=== PATIENT | female | born 1960 | race Caucasian/White ===

== ENCOUNTER 2022-06-18 18:00 | Inpatient (IN) | payer SELFPAY ==
[~2022-06-18] VITALS: Ht 162.6 cm; Wt 71.3 kg
--- NOTE | 2022-06-18 18:20 | Diagnostic Imaging Report ---
PROCEDURE: CT head w/o r/o stroke. TECHNIQUE: Multiple contiguous axial images were obtained through the brain without the use of intravenous contrast. Auto Exposure Controls were utilized during the CT exam to meet ALARA standards for radiation dose reduction. INDICATION: 61-year-old female presents with left-sided weakness and hypertension for 2 weeks. Patient presents with unsteady gait. COMPARISONS: None. FINDINGS: The midline structures are not displaced. Lateral, 3rd and 4th ventricles are normal in size, shape and anatomic position. There is an area of low-attenuation in the deep peter matter of left frontal lobe. There is also an old area of encephalomalacia in the right parietal occipital region. Peter-white differentiation is maintained. There is no sulcal effacement. There is no abnormal extra-axial fluid collection or hemorrhage. Basilar cisterns appear normal. There is calcific atherosclerosis within the carotid siphons. There is acute right maxillary sinus disease. Orbits and mastoid cells are unremarkable. IMPRESSION: There is an area of low-attenuation which is slightly indistinct in the left basal ganglia, possibly representing a subacute infarct. 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 MRI brain would be of further value to better assess these findings. There is no evidence of hemorrhage. There is no midline shift, mass effect or hydrocephalus. Additional nonemergent findings as described. Dictated by: Dictated on workstation # [id number]
[2022-06-18 19:06] LABS: BASOPHILS % (AUTO) 1 % (0-10); EOSINOPHILS # (AUTO) 0.1 10^3/uL (0.0-0.3); EOSINOPHILS % (AUTO) 2 % (0-10); HEMATOCRIT 46 % (35-52); HEMOGLOBIN 15.8 g/dL (11.5-16.0); LYMPHOCYTES % (AUTO) 15 % (12-44); MEAN CORPUSCULAR HEMOGLOBIN 31 pg (25-34); MEAN CORPUSCULAR HGB CONC 34 g/dL (32-36); MEAN CORPUSCULAR VOLUME 90 fL (80-99); MEAN PLATELET VOLUME 9.7 fL (9.0-12.2); MONOCYTES # (AUTO) 0.4 10^3/uL (0.0-1.0); MONOCYTES % (AUTO) 7 % (0-12); NEUTROPHILS # (AUTO) 4.8 10^3/uL (1.8-7.8); NEUTROPHILS % (AUTO) 76 % (42-75); PLATELET COUNT 180 10^3/uL (130-400); WHITE BLOOD COUNT 6.3 10^3/uL (4.3-11.0)
[2022-06-18 19:07] LABS: BILIRUBIN,URINE NEGATIVE (NEGATIVE); CLARITY,URINE CLEAR; COLOR,URINE YELLOW; GLUCOSE, URINE (UA) NEGATIVE (NEGATIVE); KETONES,URINE NEGATIVE (NEGATIVE); LEUKOCYTE ESTERASE ,URINE NEGATIVE (NEGATIVE); NITRITE,URINE NEGATIVE (NEGATIVE); PROTEIN,URINE 2+ (NEGATIVE)
[2022-06-18 19:17] LABS: AMPHETAMINE SCREEN, URINE POSITIVE (NEGATIVE); BENZODIAZEPINES SCREEN URINE NEGATIVE (NEGATIVE); COCAINE SCREEN URINE NEGATIVE (NEGATIVE)
--- NOTE | 2022-06-18 19:17 | Diagnostic Imaging Report ---
INDICATION: Stroke, shortness of breath. COMPARISONS: None. FINDINGS: Single view of the chest shows normal heart, pulmonary vasculature, pleura and diaphragms with no focal opacity. Soft tissues and bony thorax are unremarkable. IMPRESSION: No acute cardiopulmonary changes. Dictated by: Dictated on workstation # [id number]
[2022-06-18 19:18] LABS: BACTERIA,URINE TRACE /HPF; BARBITURATE SCREEN URINE NEGATIVE (NEGATIVE); CANNABINOID SCREEN, URINE NEGATIVE (NEGATIVE); HYALINE CASTS, URINE 0-2 /LPF; METHADONE STAT NEGATIVE (NEGATIVE); OPIATE SCREEN URINE NEGATIVE (NEGATIVE); OXYCODONE STAT NEGATIVE (NEGATIVE); PROPOXYPHENE STAT NEGATIVE (NEGATIVE); SQUAMOUS EPITHELIAL CELL,UR 0-2 /HPF; TRICYCLIC ANTIDEPRESSANTS SCRE NEGATIVE (NEGATIVE); WBC,URINE 0-2 /HPF
[2022-06-18 19:19] LABS: ALBUMIN 4.1 GM/DL (3.2-4.5)
[2022-06-18 19:20] LABS: CHLORIDE 105 MMOL/L (98-107); POTASSIUM 3.6 MMOL/L (3.6-5.0); SODIUM 140 MMOL/L (135-145)
[2022-06-18 19:21] LABS: CALCIUM 9.4 MG/DL (8.5-10.1)
[2022-06-18 19:22] LABS: FIBRIN DEGRADATION PRODUCTS 0.86 UG/ML (0.00-0.49); GLUCOSE 129 MG/DL (70-105); TOTAL PROTEIN 7.7 GM/DL (6.4-8.2)
[2022-06-18 19:23] LABS: CARBON DIOXIDE 23 MMOL/L (21-32)
[2022-06-18 19:24] LABS: BILIRUBIN,TOTAL 0.6 MG/DL (0.1-1.0)
[2022-06-18 19:25] LABS: ALKALINE PHOSPHATASE 84 U/L (40-136)
[2022-06-18 19:26] LABS: CREATININE SERUM 0.89 MG/DL (0.60-1.30); GFR ESTIMATED 74
[2022-06-18 19:27] LABS: BUN/CREATININE RATIO 15
[2022-06-18 19:29] LABS: ALANINE AMINOTRANSFERASE 19 U/L (0-55)
--- NOTE | 2022-06-18 19:44 | ED Neurological Problem ---
General Chief Complaint: Neuro-Stroke Like Symptoms Stated Complaint: STROKE LIKE SYMPTOMS Nursing Triage Note: PT BROUGHT IN BY [facility] FROM HOME WITH COMPLAINT OF STROKE LIKE SYMTPOMS. PT WAS FOUND BY FAMILY TODAY TO HAVE SLURRED SPEECH AND LEFT SIDE WEAKNESS. 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 EMS STATES PT HAS BEEN FEELING OFF FOR TWO WEEKS. PT STRAIGHT TO CT ON ARRIVAL. Source: patient Exam Limitations: no limitations History of Present Illness Date Seen by Provider: Jun 18, 2022 Time Seen by Provider: 18:00 Initial Comments This 61-year-old woman presents to the emergency room via EMS with complaints of speech difficulty, disorientation, and left-sided weakness. She is markedly hypertensive. EMS reports blood pressures have been greater than 210 systolic and greater than 110 diastolic. Her daughter is the primary historian. Her name is Unique Clark and her phone number is [phone]. She is next of kin. Unique reports Wilfrido has not been herself for about 2 weeks. Her symptoms have worsened with disorientation and speech problems over the last 24 to 48 hours. Last known well time in regard to speech and disorientation would be at least 24 hours ago. EMS reported there was a "used crack pipe" at the home. Family reports they recently learned that Wilfrido has had a long-term problem with methamphetamine use. Patient is disoriented on arrival and unable to give her accurate age, month, or year. She does follow instructions. She does not recall how she got to the hospital. Initial NIH scores 8 with deficits including minor left facial weakness, minor expressive aphasia, left arm and leg weakness and numbness, and ataxia of the left upper extremity. She remains quite hypertensive on arrival. Family reports she has also had a recent mild cough, complaints of increased body aches, and a degrading gait. EMS reported that patient walked to the ambulance with their assistance. According to family patient is a longtime smoker, uses methamphetamine, and is a remote user of alcohol and marijuana many years ago. Fingerstick blood sugar was 112 for EMS and 114 on arrival. Her primary care has previously been provided by [facility]. Patient has been alert but disoriented. She does not complain of any pain at present. Allergies and Home Medications Allergies Coded Allergies: No Known Drug Allergies (Unverified , 06/18/22) Patient Home Medication List Home Medication List Reviewed: Yes Review of Systems Review of Systems Constitutional: no symptoms reported Eyes: No Symptoms Reported Ears, Nose, Mouth, Throat: no symptoms reported Respiratory: see HPI Cardiovascular: see HPI Gastrointestinal: no symptoms reported Genitourinary: no symptoms reported : No Musculoskeletal: see HPI Skin: no symptoms reported Psychiatric/Neurological: See HPI Endocrine: No Symptoms Reported Hematologic/Lymphatic: No Symptoms Reported Past Ytwdruv-Ezaaov-Tdjwoo Hx Patient Social History Tobacco Use?: Yes Tobacco type used: Cigarettes Use of E-Cig and/or Vaping dev: No Substance use?: Yes Substance type: Methamphetamine Alcohol Use?: No Pt feels they are or have been: No Past Medical History Surgeries: No (None reported) Respiratory: Yes (Tobaccoism) Cardiac: Yes Hypertension (Historically untreated) Neurological: Yes Stroke (Old CVA as evidenced by CT) : No Genitourinary: No Gastrointestinal: No Musculoskeletal: No Endocrine: No HEENT: No Cancer: No Psychosocial: Yes (Chronic methamphetamine abuse) Integumentary: No Family Medical History Cancer (Lung), Diabetes, Psychiatric Problems (Dementia), Other Conditions/Hx (Thyroid disease) Physical Exam Vital Signs Vital Signs - First Documented 06/18/22 18:02 Temp 36.3 Pulse 98 Resp 23 B/P (MAP) 213/114 (147) Pulse Ox 91 O2 Delivery Room Air Capillary Refill : Height, Weight, BMI Height: '" Weight: lbs. oz. kg; 30.00 BMI Method: General Appearance: WD/WN, no apparent distress HEENT: normal ENT inspection Neck: normal inspection Respiratory: lungs clear, normal breath sounds, no respiratory distress Cardiovascular: regular rate, rhythm, no edema, no murmur Gastrointestinal: non tender, soft Extremities: normal inspection Neurologic/Psychiatric: alert, normal mood/affect, abnormal cerebellar tests (Abnormal wurnzt-iw-lcmq test on the left), facial droop (Left, mild), motor weakness (Drift of the left upper and lower extremity), sensory deficit (Numbness to pinprick on the left upper and lower extremity), disoriented x 3 Crainal Nerves: normal hearing Coordination/Gait: ABN nose to finger (L) Motor/Sensory: no motor deficit, sensory deficit (Left extremities), weak motor strength LUE, weak motor strength LLE Skin: normal color, warm/dry Stroke NIH Stroke Scale Assessment Level of Consciousness: 0=Alert (0), Level of Consciousness-Questions: 2=Answer neither question (2), LOC Commands: 0=Performs both tasks (0), Visual Gould: 0=No visual loss (0), Facial Movement (Facial Paresis): 1=Minor paralysis (1), Motor Function-Arms Right: 0=No drift (0), Motor Function-Arms Left: 1=Drift (1), Motor Function-Legs Right: 0=No drift (0), Motor Function-Legs Left: 1=Drift (1), Limb Ataxia: 1=Present in one limb (1), Sensory: 1=Mild to Moderate loss (1), Best Language: 1=Mild to moderat aphasia (1), Dysarthria: 0=Normal (0), Extinction & Inattention: 0=No abnormality (0), Total: 8 Stroke Thrombolytic Exclusion Severe Hypertension: Yes IV - TPa Received IV - TPa Procedure Performed?: No Progress/Results/Core Measures Results/Orders Lab Results Laboratory Tests Test 06/18/22 18:34 06/18/22 18:35 06/18/22 18:55 Range/Units Glucometer 114 H 70-110 MG/DL Influenza Type A (RT-PCR) Not Detected Not Detecte Influenza Type B (RT-PCR) Not Detected Not Detecte SARS-CoV-2 RNA (RT-PCR) Not Detected Not Detecte White Blood Count 6.3 4.3-11.0 10^3/uL Red Blood Count 5.09 3.80-5.11 10^6/uL Hemoglobin 15.8 11.5-16.0 g/dL Hematocrit 46 35-52 % Mean Corpuscular Volume 90 80-99 fL Mean Corpuscular Hemoglobin 31 25-34 pg Mean Corpuscular Hemoglobin Concent 34 32-36 g/dL Red Cell Distribution Width 13.6 10.0-14.5 % Platelet Count 180 130-400 10^3/uL Mean Platelet Volume 9.7 9.0-12.2 fL Immature Granulocyte % (Auto) 0 % Neutrophils (%) (Auto) 76 H 42-75 % Lymphocytes (%) (Auto) 15 12-44 % Monocytes (%) (Auto) 7 0-12 % Eosinophils (%) (Auto) 2 0-10 % Basophils (%) (Auto) 1 0-10 % Neutrophils # (Auto) 4.8 1.8-7.8 10^3/uL Lymphocytes # (Auto) 1.0 1.0-4.0 10^3/uL Monocytes # (Auto) 0.4 0.0-1.0 10^3/uL Eosinophils # (Auto) 0.1 0.0-0.3 10^3/uL Basophils # (Auto) 0.0 0.0-0.1 10^3/uL Immature Granulocyte # (Auto) 0.0 0.0-0.1 10^3/uL Prothrombin Time 14.0 12.2-14.7 SEC INR Comment 1.0 0.8-1.4 Activated Partial Thromboplast Time 27 24-35 SEC D-Dimer 0.86 H 0.00-0.49 UG/ML Urine Color YELLOW Urine Clarity CLEAR Urine pH 6.0 5-9 Urine Specific [place] 1.025 H 1.016-1.022 Urine Protein 2+ H NEGATIVE Urine Glucose (UA) NEGATIVE NEGATIVE Urine Ketones NEGATIVE NEGATIVE Urine Nitrite NEGATIVE NEGATIVE Urine Bilirubin NEGATIVE NEGATIVE Urine Urobilinogen 0.2 < = 1.0 MG/DL Urine Leukocyte Esterase NEGATIVE NEGATIVE Urine RBC (Auto) NEGATIVE NEGATIVE Urine RBC NONE /HPF Urine WBC 0-2 /HPF Urine Squamous Epithelial Cells 0-2 /HPF Urine Crystals NONE /LPF Urine Bacteria TRACE /HPF Urine Casts PRESENT /LPF Urine Hyaline Casts 0-2 H /LPF Urine Mucus LARGE H /LPF Urine Culture Indicated NO Sodium Level 140 135-145 MMOL/L Potassium Level 3.6 3.6-5.0 MMOL/L Chloride Level 105 98-107 MMOL/L Carbon Dioxide Level 23 21-32 MMOL/L Anion Gap 12 5-14 MMOL/L Blood Urea Nitrogen 13 7-18 MG/DL Creatinine 0.89 0.60-1.30 MG/DL Estimat Glomerular Filtration Rate 74 BUN/Creatinine Ratio 15 Glucose Level 129 H 70-105 MG/DL Calcium Level 9.4 8.5-10.1 MG/DL Corrected Calcium 9.3 8.5-10.1 MG/DL Total Bilirubin 0.6 0.1-1.0 MG/DL Aspartate Amino Transf (AST/SGOT) 17 5-34 U/L Alanine Aminotransferase (ALT/SGPT) 19 0-55 U/L Alkaline Phosphatase 84 40-136 U/L Troponin I < 0.028 <0.028 NG/ML Total Protein 7.7 6.4-8.2 GM/DL Albumin 4.1 3.2-4.5 GM/DL Thyroid Stimulating Hormone (TSH) 5.49 H 0.35-4.94 UIU/ML Free Thyroxine 0.81 0.70-1.48 NG/DL Urine Opiates Screen NEGATIVE NEGATIVE Urine Oxycodone Screen NEGATIVE NEGATIVE Urine Methadone Screen NEGATIVE NEGATIVE Urine Propoxyphene Screen NEGATIVE NEGATIVE Urine Barbiturates Screen NEGATIVE NEGATIVE Ur Tricyclic Antidepressants Screen NEGATIVE NEGATIVE Urine Phencyclidine Screen NEGATIVE NEGATIVE Urine Amphetamines Screen POSITIVE H NEGATIVE Urine Methamphetamines Screen POSITIVE H NEGATIVE Urine Benzodiazepines Screen NEGATIVE NEGATIVE Urine Cocaine Screen NEGATIVE NEGATIVE Urine Cannabinoids Screen NEGATIVE NEGATIVE Serum Alcohol < 10 <10 MG/DL My Orders Orders - FLACO CHOWDHURY MD Cbc With Automated Diff (06/18/22 18:20) Protime With Inr (06/18/22 18:20) Partial Thromboplastin Time (06/18/22 18:20) Comprehensive Metabolic Panel (06/18/22 18:20) Fibrin Degradation Products (06/18/22 18:20) Troponin I [place] (06/18/22 18:20) Ua Culture If Indicated (06/18/22 18:20) Chest 1 View, Ap/Pa Only (06/18/22 18:20) Ekg Tracing (06/18/22 18:20) Nothing By Mouth (06/18/22 Dinner) Accucheck Stat ONCE (06/18/22 18:20) Ed Iv/Invasive Line Start (06/18/22 18:20) Ed Iv/Invasive Line Start (06/18/22 18:20) Vital Signs Stroke Patient Q15M (06/18/22 18:20) O2 (06/18/22 18:20) Intake & Output 06,14,22 (06/18/22 18:20) Monitor-Rhythm Ecg Trace Only (06/18/22 18:20) Dysphagia Screening Tool Q10MX1 (06/18/22 18:20) Lipid Panel (06/19/22 06:00) Alcohol (06/18/22 18:20) Drug Screen Stat (Urine) (06/18/22 18:20) Covid 19 Inhouse Test (06/18/22 18:) Influenza A And B By Pcr (06/18/22 18:23) Thyroid Stimulating Hormone (06/18/22 18:49) Free T4 (Free Thyroxine) (06/18/22 18:49) Ct Angio Head/Neck (06/18/22 19:31) Iohexol Injection (Omnipaque 350 Mg/Ml 1 (06/18/22 19:45) Received Contrast (Hold Metformin- Contr (06/18/22 19:45) Ns (Ivpb) (Sodium Chloride 0.9% Ivpb Bag (06/18/22 20:00) Ns (Ivpb) (Sodium C... W/Nicardipine Iv (06/18/22 22:00) Aspirin Tablet (Aspirin Tablet) (06/18/22 22:15) Nicardipine Iv (Pyxis Drip Kit (Cardene (06/18/22 22:21) D5w Iv Solution (Garner) (Dextrose 5% Hong (06/18/22 22:21) Normal Saline (Ns (Garner Bag)) (06/18/22 22:23) Medications Given in ED Current Medications Medications Dose Ordered Sig/Kay Route Start Time Stop Time Status Last Admin Dose Admin Aspirin 325 mg ONCE ONCE PO 06/18/22 22:15 06/18/22 22:16 DC 06/18/22 22:19 325 MG Iohexol 100 ml ONCE ONCE IV 06/18/22 19:45 06/18/22 19:46 DC 06/18/22 19:53 90 ML Sodium Chloride 100 ml ONCE ONCE IV 06/18/22 20:00 06/18/22 20:01 DC 06/18/22 19:53 80 ML Vital Signs/I&O 06/18/22 18:02 Temp 36.3 Pulse 98 Resp 23 B/P (MAP) 213/114 (147) Pulse Ox 91 O2 Delivery Room Air Blood Pressure Mean: 147 FSBG Bedside Testing Finger Stick Blood Glucose: 114 Blood Glucose Action Taken: pHYSICIAN NOTIFIED Progress Progress Note #1: Time: 21:34 Progress Note Patient was taken directly to CT scan upon arrival and images were immediately reviewed by me. No hemorrhage or mass was identified. Report was later reviewed and confirmed no definite acute findings. There was evidence of old right-sided CVA. Patient had marked hypertension. This was permitted during the work-up as she was not a tPA candidate and confirmation of stroke was not yet known. Patient cannot receive thrombolytics as her last known well time was greater than 4.5 hours from time of presentation. According to family, last known well time was 24 to 48 hours ago regarding her confusion and speech. She had not been herself for about 2 weeks prior to that. Labs and urinalysis evaluation including CBC, CMP, magnesium, troponin, D-dimer, serum alcohol, urine drug screen, and thyroid studies were all reviewed in their entirety by me. Urine drug screen was positive for methamphetamine. Work-up was otherwise relatively unremarkable. CT of the head was followed by CT angiogram of the head and neck. Report was reviewed. No critical stenosis or large vessel occlusion was identified. Progress Note #2: Time: 21:[address] Dudley, stroke neurologist at [facility], was consulted regarding further therapies and management of the blood pressure. She recommended targeting a 20% drop in blood pressure tonight and further reducing the blood pressure toward normal tomorrow. A Cardene drip is being initiated. She also recommended treating with aspirin 325 mg tonight followed by 81 mg daily. Aspirin will be administered if patient passes the dysphagia screen. Progress Note #3: Time: 22:30 Progress Note Patient passed dysphagia screen and was administered aspirin. Repeat NIH before transfer to the ICU was performed by nursing staff. Repeat NIH score was 3. Cardene drip was initiated in the ER. I discussed CODE STATUS with the patient and her sister. Patient wishes to remain full code at this time. She was a little more alert and was able to give her accurate age. She was still not able to state the month or year. Report will be given to eICU. Admission and plan were discussed with Dr. Littlejohn, hospitalist. He agrees to admission to the ICU. Initial ECG Impression Date: Jun 18, 2022 Initial ECG Impression Time: 18:40 Initial ECG Rate: 98 Initial ECG Rhythm: Normal Sinus Initial ECG Intervals: Normal Initial ECG Impression: Normal Comment Normal sinus rhythm with no ST elevation or depression. No abnormal intervals or axis deviation. Diagnostic Imaging Diagonstic Imaging: CT Plain Films/CT/US/NM/MRI: head Comments CT head was reviewed by me in the radiology department immediately upon obtaining the images. No hemorrhage or mass was appreciated. There was subacute versus old stroke in the right parieto-occipital region by my interpretation. Radiologist report was later reviewed as below: NAME: [facility] REC#: [id number] PT STATUS: REG ER : 1960 PHYSICIAN: MYRNA MERIDA ADMIT DATE: 06/18/22/ER Signed Date of Exam:06/18/22 CT HEAD WO-R/O STROKE PROCEDURE: CT head w/o r/o stroke. TECHNIQUE: Multiple contiguous axial images were obtained through the brain without the use of intravenous contrast. Auto Exposure Controls were utilized during the CT exam to meet ALARA standards for radiation dose reduction. INDICATION: 61-year-old female presents with left-sided weakness and hypertension for 2 weeks. Patient presents with unsteady gait. COMPARISONS: None. FINDINGS: The midline structures are not displaced. Lateral, 3rd and 4th ventricles are normal in size, shape and anatomic position. There is an area of low-attenuation in the deep peter matter of left frontal lobe. There is also an old area of encephalomalacia in the right parietal occipital region. Peter-white differentiation is maintained. There is no sulcal effacement. There is no abnormal extra-axial fluid collection or hemorrhage. Basilar cisterns appear normal. There is calcific atherosclerosis within the carotid siphons. There is acute right maxillary sinus disease. Orbits and mastoid cells are unremarkable. IMPRESSION: There is an area of low-attenuation which is slightly indistinct in the left basal ganglia, possibly representing a subacute infarct. 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 MRI brain would be of further value to better assess these findings. There is no evidence of hemorrhage. There is no midline shift, mass effect or hydrocephalus. Additional nonemergent findings as described. Dictated by: Dictated on workstation # [id number] Dict: 06/18/221813 Trans: 06/18/221825 [facility] [id number] Interpreted by: MARIAM COSTA MD Electronically signed by: MARIAM COSTA MD 06/18/221825 Diagonstic Imaging: Xray Plain Films/CT/US/NM/MRI: chest Comments NAME: WILFRIDO CLARK [facility] REC#: [id number] PT STATUS: REG ER : 1960 PHYSICIAN: FLACO CHOWDHURY MD ADMIT DATE: 06/18/22/ER Signed Date of Exam:06/18/22 CHEST 1 VIEW, AP/PA ONLY INDICATION: Stroke, shortness of breath. COMPARISONS: None. FINDINGS: Single view of the chest shows normal heart, pulmonary vasculature, pleura and diaphragms with no focal opacity. Soft tissues and bony thorax are unremarkable. IMPRESSION: No acute cardiopulmonary changes. Dictated by: Dictated on workstation # [id number] Dict: 06/18/221911 Trans: 06/18/221929 [facility] [id number] Interpreted by: MARIAM COSTA MD Electronically signed by: MARIAM COSTA MD 06/18/221929 Diagonstic Imaging: CT Plain Films/CT/US/NM/MRI: other (Angiogram head and neck) Comments NAME: WILFRIDO CLARK [facility] REC#: [id number] PT STATUS: REG ER : 1960 PHYSICIAN: FLACO CHOWDHURY MD ADMIT DATE: 06/18/22/ER Signed Date of Exam:06/18/22 CT ANGIO HEAD/NECK PROCEDURE: CT angiography of the head and CT angiography of the neck with and without contrast. TECHNIQUE: Contiguous noncontrast images were obtained from the skull base through the vertex. After intravenous contrast administration, helical CT angiography of the neck was performed. Source data was reformatted into 3D MIP projections. Delayed post contrast acquisition was also obtained. Auto Exposure Controls were utilized during the CT exam to meet ALARA standards for radiation dose reduction. INDICATION: 61-year-old female presents with strokelike symptoms with slurred speech, left-sided weakness. COMPARISONS: CT head 06/18/2022. FINDINGS: There is normal arch origin of the great vessels. Both common carotid arteries are widely patent. Carotid bifurcations show some mixed plaque but no evidence of hemodynamically significant stenosis. There is tortuosity of the cervical segments. The high cervical, petrous, cavernous and supraclinoid segment are patent. There is bilateral carotid siphon disease but no evidence of hemodynamically significant stenosis. A1 and A2 segments of both ARAM, M1, M2 and M3 trifurcation vessels of both MCA are unremarkable. The right vertebral artery is dominant. Both vertebral arteries are patent to the skull base. The PICA termination of the left vertebral artery is noted which is a normal variation. The basilar artery, AICA, ACAs and MCAs are patent. There is severe atherosclerosis of the P1 segment of left [employer]. There is origin of the left [employer]. There is diffuse intracranial atherosclerosis with small vessel disease but no large vessel or medium vessel occlusion present. Lung apices show some posterior atelectasis but no confluent consolidation. Superior mediastinum is unremarkable. Parapharyngeal and paraspinous soft tissues are also grossly unremarkable. There is some cervical spondylosis with multilevel hypertrophic facet changes. IMPRESSION: 1. There is some minimal bilateral carotid bifurcation disease but no evidence of a hemodynamically significant stenosis. 2. There is minimal bilateral carotid siphon disease but no evidence of hemodynamically significant stenosis. 3. Dominant right vertebral artery. There is PICA termination of the left vertebral artery, a normal variation. 4. There is origin of the left [employer], a normal variation. 5. There is no large vessel or medium vessel occlusion seen in the intracranial circulation, but there is small vessel disease present. Additional nonemergent findings as described above. Dictated by: Dictated on workstation # [id number] Dict: 06/18/222007 Trans: 06/18/222109 [facility] [id number] Interpreted by: MARIAM COSTA MD Electronically signed by: MARIAM COSTA MD 06/18/222109 CT Read Date: Jun 18, 2022 CT Read Time: 18:00 CT Results/Progress Notes CT reviewed immediately upon obtaining images by me, Dr. Chowdhury, at 1800. No hemorrhage or mass was appreciated. There was subacute versus old stroke in the right parietal occipital region. Critical Care Note Critical Care Start Time: 18:00 Stop Time: 21:50 Total Time (minutes) 45 Progress 45 minutes of critical care time were dedicated to this patient which included bedside evaluation and care, review of imaging studies and reports, discussion with stroke neurologist and attending physician, review of labs, discussion with patient and family, collection of history, etc. Departure Communication (Admissions) Time/Spoke to Admitting Phy: 21:50 Dr. Littlejohn, hospitalist Impression Primary Impression: Malignant hypertension Additional Impressions: CVA (cerebral vascular accident) Qualified Codes: I63.9 - Cerebral infarction, unspecified Left-sided weakness Disoriented Methamphetamine abuse Disposition: ADMITTED INPATIENT Condition: Stable Admissions Decision to Admit Reason: Admit from ER (General) Decision to Admit/Date: Jun 18, 2022 Time/Decision to Admit Time: 21:50 Departure-Patient Inst. Referrals: [facility] (PCP/Family) Primary Care Physician Copy Copies To 1: [facility]/FLACO GOMEZ MD Jun 18, 2022 19:44
[2022-06-18] MEDS ORDERED: HOLD METFORMIN - RECEIVED CONTRAST 20 ML VIAL IV SCH (19:45)
[2022-06-18] MEDS ORDERED: IOHEXOL 350 MG/ML 100 ML (OMNIPAQUE 350) VIAL IV ONE (19:45)
[2022-06-18 19:49] LABS: FREE T4 (FREE THYROXINE) 0.81 NG/DL (0.70-1.48)
[2022-06-18] MEDS ORDERED: NS 100 ML (IVPB) BAG IV ONE (20:00)
--- NOTE | 2022-06-18 21:03 | Diagnostic Imaging Report ---
PROCEDURE: CT angiography of the head and CT angiography of the neck with and without contrast. TECHNIQUE: Contiguous noncontrast images were obtained from the skull base through the vertex. After intravenous contrast administration, helical CT angiography of the neck was performed. Source data was reformatted into 3D MIP projections. Delayed post contrast acquisition was also obtained. Auto Exposure Controls were utilized during the CT exam to meet ALARA standards for radiation dose reduction. INDICATION: 61-year-old female presents with strokelike symptoms with slurred speech, left-sided weakness. COMPARISONS: CT head 06/18/2022. FINDINGS: There is normal arch origin of the great vessels. Both common carotid arteries are widely patent. Carotid bifurcations show some mixed plaque but no evidence of hemodynamically significant stenosis. There is tortuosity of the cervical segments. The high cervical, petrous, cavernous and supraclinoid segment are patent. There is bilateral carotid siphon disease but no evidence of hemodynamically significant stenosis. A1 and A2 segments of both ARAM, M1, M2 and M3 trifurcation vessels of both MCA are unremarkable. The right vertebral artery is dominant. Both vertebral arteries are patent to the skull base. The PICA termination of the left vertebral artery is noted which is a normal variation. The basilar artery, AICA, ACAs and MCAs are patent. There is severe atherosclerosis of the P1 segment of left BOOKING MANAGER. There is origin of the left BOOKING MANAGER. There is diffuse intracranial atherosclerosis with small vessel disease but no large vessel or medium vessel occlusion present. Lung apices show some posterior atelectasis but no confluent consolidation. Superior mediastinum is unremarkable. Parapharyngeal and paraspinous soft tissues are also grossly unremarkable. There is some cervical spondylosis with multilevel hypertrophic facet changes. IMPRESSION: 1. There is some minimal bilateral carotid bifurcation disease but no evidence of a hemodynamically significant stenosis. 2. There is minimal bilateral carotid siphon disease but no evidence of hemodynamically significant stenosis. 3. Dominant right vertebral artery. There is PICA termination of the left vertebral artery, a normal variation. 4. There is origin of the left BOOKING MANAGER, a normal variation. 5. There is no large vessel or medium vessel occlusion seen in the intracranial circulation, but there is small vessel disease present. Additional nonemergent findings as described above. Dictated by: Dictated on workstation # [id number]
[2022-06-18] MEDS ORDERED: niCARdipine IV 50 MG in NS (IVPB) 230 ML IV SCH (22:00)
[2022-06-18] MEDS ORDERED: ASPIRIN 325 MG (5 GR) TABLET PO ONE (22:15)
[2022-06-18] MEDS ORDERED: niCARdipine IV PYXIS DRIP KIT = 50 MG X 2 VIALS ONE (22:21)
[2022-06-18] MEDS ORDERED: D5W IV SOLUTION (EXCEL) 0 ML IV ONE (22:21)
[2022-06-18] MEDS ORDERED: NORMAL SALINE 250 ML ONE (22:23)
[2022-06-18] MEDS ORDERED: ONDANSETRON 4 MG/2 ML (SDV) Z0FRAN IV PRN (23:30)
[2022-06-19 04:32] LABS: BASOPHILS % (AUTO) 1 % (0-10); EOSINOPHILS # (AUTO) 0.2 10^3/uL (0.0-0.3); EOSINOPHILS % (AUTO) 3 % (0-10); HEMATOCRIT 47 % (35-52); LYMPHOCYTES # (AUTO) 2.1 10^3/uL (1.0-4.0); LYMPHOCYTES % (AUTO) 37 % (12-44); MEAN CORPUSCULAR HEMOGLOBIN 31 pg (25-34); MEAN CORPUSCULAR HGB CONC 34 g/dL (32-36); MEAN CORPUSCULAR VOLUME 90 fL (80-99); MEAN PLATELET VOLUME 10.1 fL (9.0-12.2); MONOCYTES # (AUTO) 0.6 10^3/uL (0.0-1.0); MONOCYTES % (AUTO) 10 % (0-12); NEUTROPHILS # (AUTO) 2.9 10^3/uL (1.8-7.8); NEUTROPHILS % (AUTO) 50 % (42-75); PLATELET COUNT 185 10^3/uL (130-400); WHITE BLOOD COUNT 5.8 10^3/uL (4.3-11.0)
[2022-06-19 04:57] LABS: ALBUMIN 3.8 GM/DL (3.2-4.5); BILIRUBIN,TOTAL 0.7 MG/DL (0.1-1.0); CALCIUM 9.4 MG/DL (8.5-10.1); CREATININE SERUM 0.75 MG/DL (0.60-1.30); MAGNESIUM 1.9 MG/DL (1.6-2.4); PHOSPHORUS 2.9 MG/DL (2.3-4.7); POTASSIUM 3.1 MMOL/L (3.6-5.0); TOTAL PROTEIN 7.2 GM/DL (6.4-8.2)
[2022-06-19] MEDS ORDERED: NS IV 500 ML 500 ML IV PRN (06:00)
[2022-06-19] MEDS: MAGNESIUM 1 GM/100 ML IVPB 100 ML IV SCH ×2 (06:51→09:04)
[2022-06-19] MEDS: POTASSIUM CL 10MEQ/50ML IVPB 50 ML IV SCH ×8 (09:03→22:12)
[2022-06-19] MEDS: niCARdipine IV 50 MG in NS (IVPB) 230 ML IV SCH ×3 (09:06→19:30)
[2022-06-19] MEDS: ASPIRIN 81 MG CHEW (CHILDREN'S ASA) PO SCH (09:26)
--- NOTE | 2022-06-19 10:52 | Tele-ICU Consult ---
History of Present Illness History of Present Illness Date Seen by Provider: Jun 19, 2022 Time Seen by Provider: 10:51 History of Present Illness (Tele-ICU Physician , consultation as per request of PCP Service provided via interactive audio and video telecommunications E-CARE system to a patient admitted to ICU bed in [facility]. Available chart/ vitals / labs / Images reviewed H&P is from ER notes Patient's information available about PMH, Shx, Fhx allergy reviewed inEMR. ROS as per chart and RN report Now in ICU, hemodynamically stable Video assessment done using teleICU camera, rest of exam as per RN Discussed with RN. Hospital course: (06/18) 61/F- CVA - Slurred speech, L.S. weakness, ams, CTH - NEG. HTN URGENCY 217/104. Has not been feeling well for 2 weeks and LKW 24-48 hrs. A/P Acute CVA 06/18/2022 - stroke neurologist at [facility] consulted from ER , not candidate for thromolytics- out of window -now NIH =4 , Initial NIH 8 - minor left facial weakness, minor expressive aphasia,lue AND lle weakness and numbness, and ataxia of the LUE - CT-H - suspected subacute infarct basal ganslia , OLD right parieto-occipital infarct - CTA-H- no large vessel or medium vessel occlusion - ASA given - ECHO -speach eval HTN emergency , presented with MAP 141 - on cardene gtt from ER , MAP down by 20% , will cont to aim toward MAP 100 today and by NL BP by tomorrow Tobacco addiction - started on nikitone patch Lines : perip , (Central Line Necessity Reviewed) Deleon: 06/18 OG: Nutrition: npo Analgesia: Anxiety/ delirium VTE Prophylaxis: scd today Stress Ulcer Prophylaxis: na Glycemic Control: + Plans in collaboration with bedside consultants and IM MDs. Discussed with RN to reach out if any questions or concerns A total of 32 minutes of critical care time was devoted to this patient today, required to treat and/or prevent further deterioration of critical care condition ( as above ) . I am remotely monitoring this patient from another state. I am unable to do the bedside exam, and history/physical and pertinent information is taken from other notes in the computer and bedside staff. . Allergies and Home Medications Allergies Coded Allergies: No Known Drug Allergies (Unverified , 06/18/22) Past Medical/Social/Family Hx Patient Social History Tobacco Use?: Yes Tobacco type used: Cigarettes Smoking Status: Current Everyday Smoker Smokeless Tobacco Frequency: Never a User Use of E-Cig and/or Vaping dev: No Substance use?: Yes Substance type: Methamphetamine Substance frequency: Couple times a week Alcohol Use?: No Pt stated abuse/neglect: No Immunizations Up To Date Influenza Vaccine Up-to-Date: No; Not Current Tetanus Booster (TDap): More Than 5 Years Hepatitis B: Yes TB Skin Test: None Current Status status: No status: No Advance Directives: No Communicates: Verbally Primary Language: Belizean Preferred Spoken Language: Belizean Is interpretation needed?: No Implanted or Applied Medical D: None Review of Systems Constitutional: see HPI Focused Exam Height, Weight, BMI Height: '" Weight: lbs. oz. kg; 26.74 BMI Method: Exam Exam Patient acknowledged, consented, and participated in this virtual visit which was conducted using real time audio/video Vital Signs Date Time Temp Pulse Resp B/P (MAP) Pulse Ox O2 Delivery O2 Flow Rate FiO2 06/19/22 10:00 81 14 130/73 (97) 94 Room Air 06/19/22 09:06 149/80 06/19/22 09:00 89 16 146/80 (106) 93 Room Air 06/19/22 08:00 84 11 132/92 (96) 93 Room Air 06/19/22 07:00 82 06/19/22 07:00 81 14 174/105 (128) 95 Room Air 06/19/22 06:00 89 17 169/93 (118) 94 Room Air 06/19/22 05:00 89 15 169/87 (114) 93 Room Air 06/19/22 04:00 96 Room Air 06/19/22 04:00 91 16 164/100 (121) 93 Room Air 06/19/22 03:00 89 15 220/119 (152) 94 Room Air 06/19/22 02:00 92 14 179/110 (133) 93 Room Air 06/19/22 01:00 92 11 183/97 (125) 93 Room Air 06/19/22 01:00 93 06/19/22 00:34 35.3 104 14 168/45 (86) 94 06/19/22 00:00 101 19 185/99 (127) 94 Room Air 06/18/22 23:39 169/93 06/18/22 23:10 98 Room Air 06/18/22 23:09 213/114 06/18/22 23:00 94 20 203/111 (141) 96 Room Air 06/18/22 18:02 36.3 98 23 213/114 (147) 91 Room Air I & O 06/19/22 07:00 Intake Total 0 ml Output Total 1500 ml Balance -1500 ml Height & Weight Height: '" Weight: lbs. oz. kg; 26.74 BMI Method: General Appearance: Other Gastrointestinal: non tender, soft Results Lab Laboratory Tests 06/18/22 18:55 06/19/22 03:35 Assessment/Plan Assessment/Plan 1 IVÁN DIETRICH MD Jun 19, 2022 10:52
[2022-06-19] MEDS: NICOTINE 21 MG (NICODERM) PATCH TD SCH (11:30)
[2022-06-19] MEDS ORDERED: LOSARTAN 25 MG (COZAAR) TAB PO ONE (16:15)
[2022-06-20 04:49] LABS: BASOPHILS % (AUTO) 0 % (0-10); EOSINOPHILS # (AUTO) 0.2 10^3/uL (0.0-0.3); EOSINOPHILS % (AUTO) 3 % (0-10); HEMATOCRIT 45 % (35-52); LYMPHOCYTES # (AUTO) 1.8 10^3/uL (1.0-4.0); LYMPHOCYTES % (AUTO) 29 % (12-44); MEAN CORPUSCULAR HEMOGLOBIN 31 pg (25-34); MEAN CORPUSCULAR HGB CONC 34 g/dL (32-36); MEAN CORPUSCULAR VOLUME 91 fL (80-99); MEAN PLATELET VOLUME 9.9 fL (9.0-12.2); MONOCYTES # (AUTO) 0.6 10^3/uL (0.0-1.0); MONOCYTES % (AUTO) 9 % (0-12); NEUTROPHILS # (AUTO) 3.7 10^3/uL (1.8-7.8); NEUTROPHILS % (AUTO) 59 % (42-75); PLATELET COUNT 192 10^3/uL (130-400); WHITE BLOOD COUNT 6.3 10^3/uL (4.3-11.0)
[2022-06-20 05:19] LABS: ALBUMIN 3.8 GM/DL (3.2-4.5); BILIRUBIN,TOTAL 0.5 MG/DL (0.1-1.0); CALCIUM 9.2 MG/DL (8.5-10.1); CREATININE SERUM 0.81 MG/DL (0.60-1.30); MAGNESIUM 2.2 MG/DL (1.6-2.4); PHOSPHORUS 2.2 MG/DL (2.3-4.7); POTASSIUM 4.1 MMOL/L (3.6-5.0); TOTAL PROTEIN 7.3 GM/DL (6.4-8.2)
[2022-06-20] MEDS: niCARdipine IV 50 MG in NS (IVPB) 230 ML IV SCH (05:47)
[2022-06-20] MEDS ORDERED: POTASSIUM CL 10MEQ/50ML IVPB 50 ML IV SCH (06:00)
[2022-06-20] MEDS ORDERED: MAGNESIUM 1 GM/100 ML IVPB 100 ML IV SCH (06:00)
[2022-06-20] MEDS ORDERED: KCL 20 MEQ TAB (K-DUR) PO SCH (06:00)
[2022-06-20] MEDS: ASPIRIN 81 MG CHEW (CHILDREN'S ASA) PO SCH (08:00)
[2022-06-20] MEDS: PATCH REMOVAL TP SCH (08:00)
[2022-06-20] MEDS: NICOTINE 21 MG (NICODERM) PATCH TD SCH (08:00)
[2022-06-20] MEDS ORDERED: LOSARTAN 25 MG (COZAAR) TAB PO NR (09:00)
[2022-06-20] MEDS ORDERED: LORazepam 0.5 MG (ATIVAN) TABLET PO PRN (09:15)
--- NOTE | 2022-06-20 10:47 | Tele-ICU Progress Note ---
Subjective Date Seen by a Provider: Jun 20, 2022 Time Seen by a Provider: 10:46 Subjective/Events-last exam (Tele-ICU Physician , Progress Note ) Service provided via interactive audio and video telecommunications E-CARE system to a patient admitted to ICU bed in [facility]. Patient is seen today due to persistent need of ICU care Available chart/ vitals / labs / Images reviewed Video assessment done using teleICU camera, rest of exam as per RN Discussed with RN Events overnight : Afebrile hemodynamically stable Respiratory - I/O = Drips: Pressors- no Hospital course: (06/18) 61/F- CVA - Slurred speech, L.S. weakness, ams, CTH - NEG. HTN URGENCY 217/104. Has not been feeling well for 2 weeks and LKW 24-48 hrs. 06/19 - on cardene gtt, A/P Acute CVA 06/18/2022 - stroke neurologist at [facility] consulted from ER , not candidate for thromolytics- out of window -now NIH =4 , Initial NIH 8 - minor left facial weakness, minor expressive aphasia,lue AND lle weakness and numbness, and ataxia of the LUE - CT-H - suspected subacute infarct basal ganslia , OLD right parieto-occipital infarct - CTA-H- no large vessel or medium vessel occlusion - ASA given - ECHO HTN emergency , presented with MAP 141 - on cardene gtt - stopped today , startimng po meds Tobacco addiction - started on nicotone patch UTS + amphetamine , methamphetamine Lines : perip , (Central Line Necessity Reviewed) Deleon: 06/18 OG: Nutrition: npo Analgesia: Anxiety/ delirium VTE Prophylaxis: scd today Stress Ulcer Prophylaxis: na Glycemic Control: + Plans in collaboration with bedside consultants and IM MDs. Discussed with RN to reach out if any questions or concerns A total of 20 minutes of critical care time was devoted to this patient today, required to treat and/or prevent further deterioration of critical care condition ( as above ) . I am remotely monitoring this patient from another state. I am unable to do the bedside exam, and history/physical and pertinent information is taken from other notes in the computer and bedside staff. . Sepsis Event Evaluation Height, Weight, BMI Height: '" Weight: lbs. oz. kg; 26.70 BMI Method: Exam Exam Patient acknowledged, consented, and participated in this virtual visit which was conducted using real time audio/video Vital Signs Date Time Temp Pulse Resp B/P (MAP) Pulse Ox O2 Delivery O2 Flow Rate FiO2 06/20/22 09:00 82 16 152/90 (110) 93 Room Air 06/20/22 08:00 105 14 137/80 (99) Room Air 06/20/22 07:53 36.2 06/20/22 07:00 90 11 131/114 (120) Room Air 06/20/22 07:00 93 06/20/22 06:30 86 14 175/88 (111) Room Air 06/20/22 06:15 86 19 151/74 (103) Room Air 06/20/22 06:00 84 16 174/97 (123) Room Air 06/20/22 05:47 183/98 06/20/22 05:00 87 15 183/98 (118) Room Air 06/20/22 04:00 86 15 173/99 (128) Room Air 06/20/22 04:00 96 Room Air 06/20/22 03:00 89 15 166/98 (120) Room Air 06/20/22 02:30 89 15 158/94 (115) Room Air 06/20/22 02:00 87 15 188/104 (125) Room Air 06/20/22 01:00 90 16 175/92 (120) Room Air 06/20/22 01:00 90 06/20/22 00:00 86 16 173/94 (120) Room Air 06/19/22 23:59 94 Room Air 06/19/22 23:00 97 38 178/107 (130) Room Air 06/19/22 22:45 90 17 151/96 (114) Room Air 06/19/22 22:00 96 23 154/107 (117) 93 Room Air 06/19/22 21:45 93 21 150/118 (134) 91 06/19/22 21:30 97 17 164/103 (115) 93 06/19/22 21:15 90 12 160/93 (137) 94 06/19/22 21:03 97 20 185/106 (130) Room Air 06/19/22 21:00 92 11 06/19/22 20:51 96 16 150/114 (131) 06/19/22 20:45 92 17 138/115 (121) 06/19/22 20:30 89 16 145/92 (106) 06/19/22 20:15 96 11 160/103 (121) 96 06/19/22 20:00 96 Room Air 06/19/22 20:00 36.4 06/19/22 20:00 99 11 172/115 (123) 98 Room Air 06/19/22 19:45 94 18 182/96 (123) 97 06/19/22 19:30 98 11 179/131 (138) 98 06/19/22 19:30 154/107 06/19/22 19:15 96 17 169/101 (131) 100 06/19/22 19:00 98 06/19/22 19:00 98 19 182/107 (123) 97 Room Air 06/19/22 18:00 100 20 170/101 (126) 1000 Room Air 06/19/22 17:00 92 12 187/105 (128) 100 Room Air 06/19/22 16:00 89 15 162/98 (111) Room Air 06/19/22 16:00 36.2 06/19/22 16:00 96 Room Air 06/19/22 15:00 81 15 173/94 (122) Room Air 06/19/22 14:05 36.5 89 16 164/92 (116) Room Air 06/19/22 13:00 90 15 166/91 (117) 94 Room Air 06/19/22 13:00 94 06/19/22 12:00 84 16 161/96 (116) 95 Room Air 06/19/22 12:00 96 Room Air 06/19/22 11:00 80 11 150/103 (119) 95 Room Air I & O 06/20/22 07:00 Intake Total 2450 ml Output Total 1625 ml Balance 825 ml Height & Weight Height: '" Weight: lbs. oz. kg; 26.70 BMI Method: General Appearance: Other Gastrointestinal: non tender, soft Results Lab Laboratory Tests 06/18/22 18:55 06/19/22 03:35 06/20/22 04:26 Assessment/Plan Assessment/Plan 1 IVÁN DIETRICH MD Jun 20, 2022 10:47
[2022-06-20] MEDS ORDERED: ACETAMINOPHEN 325 MG TABLET PO PRN (11:15)
[2022-06-20] MEDS ORDERED: diphenhydrAMINE 50 MG/ML INJ (BENADRYL) IVP PRN (11:15)
[2022-06-20] MEDS ORDERED: MILK OF MAGNESIA 400 MG/5 ML 30 ML UDC PO PRN (11:15)
[2022-06-20] MEDS ORDERED: polyethylene glycoL POWDER 17 GM (MIRALAX) PACK PO PRN (11:15)
[2022-06-20] MEDS ORDERED: ONDANSETRON 4 MG/2 ML (SDV) Z0FRAN IV PRN (11:15)
[2022-06-20] MEDS ORDERED: BISACODYL 10 MG SUPP (DULCOLAX) PR PRN (11:15)
[2022-06-20] MEDS ORDERED: LACTULOSE SYRUP 10GM/15ML (ENULOSE) 30ML UDC PO PRN (11:15)
[2022-06-20] MEDS ORDERED: diphenhydrAMINE 25 MG TAB (BENADRYL) PO PRN (11:15)
[2022-06-20] MEDS ORDERED: CALCIUM CARBONATE 500 MG (TUMS) TAB.CHEW PO PRN (11:15)
[2022-06-20] MEDS ORDERED: ANTACID SUSP 30 ML UDC (MYLANTA) PO PRN (11:15)
[2022-06-20] MEDS ORDERED: ONDANSETRON 4 MG (ZOFRAN) ORAL DISSOLVE TAB PO PRN (11:15)
[2022-06-20] MEDS ORDERED: MELATONIN 3 MG TABLET PO PRN (11:15)
[2022-06-20] MEDS ORDERED: amLODIPine 5 MG (NORVASC) TAB PO NR (11:30)
[2022-06-20] MEDS: ENOXAPARIN 40 MG/0.4 ML (LOVENOX) SYR SC SCH (11:39)
--- NOTE | 2022-06-20 12:12 | History & Physical-Hospitalist ---
SOUMYAKarineGRECIA 06/20/22 1212: History of Present Illness HPI/Chief Complaint Joan Pretty is a 61 yo F w/ hx of methamphetamine use, tobacco use, and HTN who presented via EMS on 06/18 with left sided weakness and slurred speech lasting for 24-48 hours since last known well. In ED she was deemed to not be a candidate for tPA or thrombectomy. ED w/u revealed normal electrolytes, blood counts, and a sinus ekg. CTH revealed an old R parietal-occipital infarct and a subacute L basal ganglia infarct. CTA was performed and revealed no medium or large vessel occlusion. A UDS was positive for amphetamines and benzos. On arrival she had left sided weakness in her arm, leg, and face, and had slurred speech. She denied having symptoms like this before. She was also found to have a SBP in the 200s, though permissive HTN allowed up to 220/110 for recent isch emic stroke. Today Joan is feeling much better and says her weakness is nearly gone. Daughter is at bedside and reports some possible continued confusion. Joan asks if she can go home, echo results are pending. Source: patient, EMS Date Seen 06/20/22 Time Seen by a Provider: 09:30 Attending Physician [facility] PCP Admitting Physician: Chemo Littlejohn MD Attending Physician: Racheal Macdonald DO Referring Physician Date of Admission Jun 18, 2022 at 22:38 Home Medications & Allergies Home Medications Reviewed patient Home Medication Reconciliation performed by pharmacy medication reconciliations it support technician and/or nursing. Patients Allergies have been reviewed. Allergies Allergies Coded Allergies No Known Drug Allergies (Unverified06/18/22) Past Nruoavm-Outdoc-Fnghyp Hx Patient Social History Tobacco Use?: Yes Tobacco type used: Cigarettes Smoking Status: Current Everyday Smoker Smokeless Tobacco Frequency: Never a User Use of E-Cig and/or Vaping dev: No Substance use?: Yes Substance type: Methamphetamine Substance frequency: Couple times a week Alcohol Use?: No Pt feels they are or have been: No Immunizations Up To Date Tetanus Booster (TDap): More Than 5 Years Hepatitis B: Yes Current Status status: No status: No Advance Directives: No Communicates: Verbally Primary Language: Divehi Preferred Spoken Language: Divehi Is interpretation needed?: No Implanted or Applied Medical D: None Past Medical History Hypertension (Historically untreated) Stroke (Old CVA as evidenced by CT) Family Medical History Cancer (Lung), Diabetes, Psychiatric Problems (Dementia), Other Conditions/Hx (Thyroid disease) Review of Systems Constitutional: No dizziness, No weakness EENTM: No blurred vision, No double vision, No vision loss Respiratory: No cough, No short of breath Cardiovascular: No chest pain, No palpitations Gastrointestinal: No abdominal pain, No constipation, No diarrhea, No melena, No nausea, No vomiting Genitourinary: No dysuria, No incontinence Musculoskeletal: no symptoms reported Skin: no symptoms reported Psychiatric/Neurological: Denies Numbness, Denies Tingling, Denies Tremors All Other Systems Reviewed Negative Unless Noted: Yes Physical Exam Physical Exam Vital Signs Vital Signs - First Documented 06/18/22 18:02 Temp 36.3 Pulse 98 Resp 23 B/P (MAP) 213/114 (147) Pulse Ox 91 O2 Delivery Room Air Capillary Refill : Height, Weight, BMI Height: '" Weight: lbs. oz. kg; 26.70 BMI Method: General Appearance: No Apparent Distress, WD/WN Eyes: Bilateral Eye Normal Inspection, Bilateral Eye PERRL, Bilateral Eye EOMI HEENT: PERRL/EOMI, Pharynx Normal, Moist Mucous Membranes; No Scleral Icterus (L), No Scleral Icterus (R) Neck: Normal Inspection, Non Tender, Supple; No Carotid Bruit, No JVD Respiratory: Lungs Clear, Normal Breath Sounds, No Respiratory Distress Cardiovascular: Regular Rate, Rhythm, No Edema, No JVD, No Murmur, Normal Peripheral Pulses Gastrointestinal: Non Tender, Soft; No Distended Extremity: Normal Inspection, Non Tender, No Pedal Edema Neurologic/Psychiatric: Alert, Oriented x3, No Motor/Sensory Deficits, Normal Mood/Affect, Other (CN II-XII intact, strength 5/5 all extremities. sensation intact all four extremities. speech normal.) Reflexes: 2+ Bicep (R), 2+ Bicep (L), 2+ Tricep (R), 2+ Tricep (L), 2+ Knee (R); 3+ Knee (L); 2+ Ankle (R); 3+ Ankle (L) Skin: Normal Color, Warm/Dry Results Results/Procedures Labs Laboratory Tests 06/18/22 18:55 06/19/22 03:35 06/20/22 04:26 Patient resulted labs reviewed. Imaging: Reviewed Imaging Films, Reviewed Imaging Report Assessment/Plan Admission Diagnosis CVA Admission Status: Inpatient Order (span 2 midnights) Reason for Inpatient Admission: Stroke recovery Assessment and Plan Left side weakness CVA -was outside window for tpa, thrombectomy -CTH with possible subacute infarct of L basal ganglia -CTA w/o large or medium vessel occlusion, w/o significant carotid stenosis -likely etiology embolic from afib vs small penetrating artery thrombosis -methamphetamine use could have played factor in afib -ekg with possible L&R atrial enlargement, echo results pending -weakness improved close to baseline now -started on aspirin HTN -permissive HTN for first 48 hours -controlled with nicardipine drip, off now on amlodipine po Methamphetamine use Tobacco use -encouraged cessation Dispo: can transfer to floor. Echo results pending. RACHEAL MACDONALD DO 06/21/22 0449: History of Present Illness Source: patient, EMS Exam Limitations: clinical condition Past Ctsdamy-Vvudrs-Spocoj Hx Patient Social History Marrital Status: single Employed/Student: unemployed Review of Systems Constitutional: see HPI Physical Exam Physical Exam General Appearance: No Apparent Distress, Chronically ill Assessment/Plan Admission Diagnosis Admission Status: Inpatient Order (span 2 midnights) Reason for Inpatient Admission: cva Supervisory-Addendum Brief Verification & Attestation Participated in pt care: history, MDM, physical Personally performed: exam, history, MDM, supervision of care Care discussed with: Medical Student Procedures: n/a Results interpretation: Verified all documentation Verification and Attestation of Medical Student E/M Service A medical student performed and documented this service in my presence. I reviewed and verified all information documented by the medical student and made modifications to such information, when appropriate. I personally performed the physical exam and medical decision making. Racheal Macdonald Jun 21, 2022,04:48 GRECIA MARIE Jun 20, 2022 12:12 RACHEAL MACDONALD DO Jun 21, 2022 04:49
[2022-06-20 14:36] VITALS: BP 133/75
--- NOTE | 2022-06-20 14:39 | Physical Therapy Evaluation ---
PT Evaluation-General Medical Diagnosis Admission Date Jun 18, 2022 at 22:38 Medical Diagnosis: CVA Onset Date: Jun 18, 2022 Therapy Diagnosis Therapy Diagnosis: generalized weakness/impaired mobility Precautions Precautions/Isolations: Fall Prevention, Standard Precautions Weight Bear Status Right Lower Extremity: Right Weight Bearing/Tolerated Left Lower Extremity: Left Weight Bearing/Tolerated Referral Physician: Pablito Reason for Referral: Evaluation/Treatment Medical History Pertinent Medical History: CVA, HTN, Smoking Additional Medical History polysubstance use Current History ER secondary to left sided weakness Reviewed History: Yes Social History Home: Apartment Current Living Status: Alone Entry Into Home: Stairs With Railing PT Steps Into Home: 15 Prior Prior Level of Function SCALE: Activities may be completed with or without assistive devices. 5-Zeocjasvzy-xyyspic completes the activity by him/herself with no assistance from a helper. 5-Set-up or Clean-up Assistance-helper sets up or cleans up; patient completes activity. [place] assists only prior to or following the activity. 4-Supervision or Touching Assistance-helper provides verbal cues and/or touching/steadying and/or contact guard assistance as patient completes activity. Assistance may be provided throughout the activity or intermittently. 3-Partial/Moderate Assistance-helper does LESS THAN HALF the effort. [place] lifts, holds or supports trunk or limbs, but provides less than half the effort. 2-Substantial/Maximal Assistance-helper does MORE THAN HALF the effort. [place] lifts or holds trunk or limbs and provides more than half the effort. 5-Xlviilxmz-wqwctv does ALL the effort. Patient does none of the effort to complete the activity. Or, the assistance of 2 or more helpers is required for the patient to complete the activity. If activity was not attempted, code reason: 7-Patient Refused. 9-Not Applicable-not attempted and the patient did not perform the activity before the current illness, exacerbation or injury. 10-Not Attempted due to Environmental Limitations-(lack of equipment, weather restraints, etc.). 88-Not Attempted due to Medical Conditions or Safety Concerns. Bed Mobility: 6 Transfers (B,C,W/C): 6 Gait: 6 Stairs: 6 Indoor Mobility (Ambulation): Independent Stairs: Independent Prior Devices Use: None PT Evaluation-Current Subjective Patient reports multiple falls during last week. She thought it was because her house was a mess. Pain Numeric Pain Scale: 0-No Pain Location: No Pain Reported Objective Patient Orientation: Person, Time, Situation ROM/Strength ROM Lower Extremities bilateral LE WFL Strength Lower Extremities 3+/5 grossly bilateral LE Integumentary/Posture Bowel Incontinence: No Bladder Incontinence: No Posture WFL Neuromuscular (Tone, Coordination, Reflexes) diminished coordination/proprioception Sensory Vision: Functional Hearing: Functional Transfers Sit to Lying (QC): 6 Lying to Sitting/Side of Bed(Q: 6 Sit to Stand (QC): 4 Gait Mode of Locomotion: Walk Anticipated Mode of Locomotion: Walk Walk 10 feet (QC): 4 Walk 50 ft with 2 Turns(QC): 4 Walk 150 ft (QC): 4 Distance: 350' Gait Assistive Device: None Comments/Gait Description no abad LOB but slightly unsteady Balance Sitting Static: Normal Sitting Dynamic: Normal Standing Static: Fair Standing Dynamic: Fair Picking up an Object (QC): 4 Assessment/Needs Patient will be seen short term by skilled PT to address functional mobility and dynamic balance to improve current LOF to safely return to home. Rehab Potential: Fair PT Stock Chaser Goals Stock Chaser Goals PT Prison Goals Time Frame: Jul 01, 2022 Roll Left & Right (QC): 6 Sit to Lying (QC): 6 Lying-Sitting on Side/Bed(QC): 6 Sit to Stand (QC): 6 Chair/Biz-hs-Qkwkx Xfer(QC): 6 Toilet Transfer (QC): 6 Walk 10 feet (QC): 6 Walk 50ft with 2 Turns (QC): 6 Walk 150 ft (QC): 6 1 Step (curb) (QC): 6 4 Steps (QC): 6 12 Steps (QC): 6 PT Plan Problem List Problem List: Activity Tolerance, Safety, Balance, Gait Treatment/Plan Treatment Plan: Continue Plan of Care Treatment Plan: Education, Functional Activity Kain, Functional Strength, Gait, Safety, Therapeutic Exercise Treatment Duration: Jul 01, 2022 Frequency: 6 times per week Estimated Hrs Per Day: .25 hour per day Patient and/or Family Agrees t: Yes Time Time In: 1357 Time Out: 1410 DATE: Jun 20, 2022 Total Billed Treatment Time: 13 Total Billed Treatment 1 visit EVMod 13 min MADISON JONES PT Jun 20, 2022 14:39
[2022-06-20 15:54] VITALS: BP 175/82
--- NOTE | 2022-06-20 16:33 | Occupational Therapy Eval ---
OT Evaluation-General/PLF Medical Diagnosis Admission Date Jun 18, 2022 at 22:38 Medical Diagnosis: CVA Onset Date: Jun 18, 2022 Therapy Diagnosis Therapy Diagnosis: waekness, cognition Precautions Precautions/Isolations: Fall Prevention, Standard Precautions Weight Bear Status Weight Bearing Restriction: Full Weight Bearing Referral Physician: Pablito Omer Reason: Evaluation/Treatment Medical History Pertinent Medical History: CVA, HTN, Smoking Current History CVA, difficulty w/ problem solving and processing Social History Home: Apartment Current Living Status: Alone Entry Into Home: Stairs With Railing Steps Into Home: 15 [facility] ADL-Prior Level of Function SCALE: Activities may be completed with or without assistive devices. 9-Qqhoraazln-hcbivve completes the activity by him/herself with no assistance from a helper. 5-Set-up or Clean-up Assistance-helper sets up or cleans up; patient completes activity. [place] assists only prior to or following the activity. 4-Supervision or Touching Assistance-helper provides verbal cues and/or touching/steadying and/or contact guard assistance as patient completes activity. Assistance may be provided throughout the activity or intermittently. 3-Partial/Moderate Assistance-helper does LESS THAN HALF the effort. [place] lifts, holds or supports trunk or limbs, but provides less than half the effort. 2-Substantial/Maximal Assistance-helper does MORE THAN HALF the effort. [place] lifts or holds trunk or limbs and provides more than half the effort. 1-Kbebrgynb-xtwosw does ALL the effort. Patient does none of the effort to complete the activity. Or, the assistance of 2 or more helpers is required for the patient to complete the activity. If activity was not attempted, code reason: 7-Patient Refused. 9-Not Applicable-not attempted and the patient did not perform the activity before the current illness, exacerbation or injury. 10-Not Attempted due to Environmental Limitations-(lack of equipment, weather restraints, etc.). 88-Not Attempted due to Medical Conditions or Safety Concerns. Self Care: Independent Functional Cognition: Independent OT Current Status Subjective Agreeable to OT Mental Status/Objective Patient Orientation: Person, Place, Time, Situation Required cues for orientation Current Upper Extremity ROM BUE ROM WFLS Upper Extremity Strength BUE -4/5 ADL-Treatment Eating (QC): 5 Oral Hygiene (QC): 4 Shower/Bathe Self (QC): 7 Upper Body Dressing (QC): 4 Lower Body Dressing (QC): 4 On/Off Footwear (QC): 4 Toileting Hygiene (QC): 4 Education OT Patient Education: Modified ADL techniques, Progress toward Goal/Update tx plan, Purpose of tx/functional activities, Reviewed precautions, Safety issues, Use of adapted equipment Teaching Recipient: Patient Teaching Methods: Demonstration Response to Teaching: Verbalize Understanding, Reinforcement Needed OT Chronic Specialist Goals Jail Goals Eating (QC): 6 Oral Hygiene (QC): 6 Toileting Hygiene (QC): 6 Shower/Bathe Self (QC): 6 Upper Body Dressing (QC): 6 Lower Body Dressing (QC): 6 On/Off Footwear (QC): 6 1=Demonstrate adherence to instructed precautions during ADL tasks. 2=Patient will verbalize/demonstrate understanding of assistive devices/modifications for ADL. 3=Patient will improve strength/tolerance for activity to enable patient to per form ADL's. OT Education/Plan Problem List/Assessment Assessment: Decreased Safety Aware, Decreased UE Strength, Impaired Cognition, Impaired Coordination, Impaired Self-Care Skills Discharge Recommendations Plan/Recommendations: Continue POC Therapy Discharge Recommendati: Post Acute OT Treatment Plan/Plan of Care Patient would benefit from OT for education, treatment and training to promote independence in ADL's, mobility, safety and/or upper extremity function for ADL's. Plan of Care: ADL Retraining, Cognitive Retraining, Functional Mobility, Group Exercise/Act as Ind, UE Funct Exercise/Act Treatment Duration: Jun 25, 2022 Frequency: 3 times per week (3-5 times per week) Estimated Hrs Per Day: .25 hour per day Agreement: Yes Rehab Potential: Fair Time Start Time: 14:44 Stop Time: 15:14 DATE: Jun 20, 2022 Total Time Billed (hr/min): 30 Billed Treatment Time YUNG, FA 1 30 min AGATHA BEACH OT Jun 20, 2022 16:33
--- NOTE | 2022-06-20 16:55 | Diagnostic Imaging Report ---
PROCEDURE: US carotid duplex, bilateral. TECHNIQUE: Multiple real-time grayscale images were obtained over the carotid arteries in various projections, bilaterally. Additional spectral analysis and color Doppler duplex images were also obtained. INDICATION: Left-sided weakness, CVA. FINDINGS: The grayscale images do not show any appreciable plaque at the carotid bifurcations. The velocities and waveforms appear normal bilaterally. Both vertebral arteries are patent with antegrade flow. IMPRESSION: Unremarkable carotid Doppler. Parameters based on the consensus panel Peter-Scale and Doppler ultrasound criteria published February 2003, Radiology, Volume 229. DOPPLER (peak systolic velocity M/S Right Left CCA 0.96 0.86 ICA Proximal 0.67 0.52 ICA Mid 0.76 0.72 ICA Distal 0.72 0.77 RATIO 0.79 0.90 ECA 1.78 0.86 VERT 0.41 0.70 Dictated by: Dictated on workstation # [id number]
[2022-06-20 19:41] VITALS: BP 165/81
[2022-06-20] MEDS: SENNOSIDES 8.6 MG (SENOKOT) TAB PO SCH (20:39)
[2022-06-20] MEDS: DOCUSATE SODIUM 100 MG (COLACE) CAP PO SCH (20:39)
[2022-06-20 23:02] VITALS: BP 160/82
[2022-06-21 04:06] VITALS: BP 146/80
[2022-06-21 06:07] LABS: BASOPHILS % (AUTO) 1 % (0-10); EOSINOPHILS # (AUTO) 0.2 10^3/uL (0.0-0.3); EOSINOPHILS % (AUTO) 4 % (0-10); HEMATOCRIT 48 % (35-52); HEMOGLOBIN 16.5 g/dL (11.5-16.0); LYMPHOCYTES # (AUTO) 1.9 10^3/uL (1.0-4.0); LYMPHOCYTES % (AUTO) 35 % (12-44); MEAN CORPUSCULAR HEMOGLOBIN 31 pg (25-34); MEAN CORPUSCULAR HGB CONC 34 g/dL (32-36); MEAN CORPUSCULAR VOLUME 91 fL (80-99); MEAN PLATELET VOLUME 10.4 fL (9.0-12.2); MONOCYTES # (AUTO) 0.7 10^3/uL (0.0-1.0); MONOCYTES % (AUTO) 13 % (0-12); NEUTROPHILS # (AUTO) 2.5 10^3/uL (1.8-7.8); NEUTROPHILS % (AUTO) 47 % (42-75); PLATELET COUNT 172 10^3/uL (130-400); WHITE BLOOD COUNT 5.3 10^3/uL (4.3-11.0)
[2022-06-21 06:51] LABS: ALBUMIN 3.6 GM/DL (3.2-4.5); BILIRUBIN,TOTAL 0.7 MG/DL (0.1-1.0); CALCIUM 9.3 MG/DL (8.5-10.1); CREATININE SERUM 0.82 MG/DL (0.60-1.30); POTASSIUM 3.9 MMOL/L (3.6-5.0); TOTAL PROTEIN 7.1 GM/DL (6.4-8.2)
[2022-06-21 08:15] VITALS: BP 154/70
[2022-06-21] MEDS: amLODIPine 5 MG (NORVASC) TAB PO SCH (08:25)
[2022-06-21] MEDS: NICOTINE 21 MG (NICODERM) PATCH TD SCH (08:25)
[2022-06-21] MEDS: ASPIRIN 81 MG CHEW (CHILDREN'S ASA) PO SCH (08:25)
[2022-06-21] MEDS: PATCH REMOVAL TP SCH (08:28)
[2022-06-21] MEDS: DOCUSATE SODIUM 100 MG (COLACE) CAP PO SCH ×2 (08:28→19:22)
[2022-06-21] MEDS: SENNOSIDES 8.6 MG (SENOKOT) TAB PO SCH ×2 (08:28→19:22)
--- NOTE | 2022-06-21 10:07 | Physical Therapy Daily Note ---
PT Daily Note-Current Subjective Patient agrees to PT. She reports she is feeling much better today. Pain Section J - Health Conditions 1. Rarely or not at all 2. Occasionally 3. Frequently 4. Almost constantly 8. Unable to answer Pain Effect on Sleep: 1 Pain Interference with Therapy: 1 Pain Interference w/Day-to-Day: 1 Transfers SCALE: Activities may be completed with or without assistive devices. 2-Twalzdpdmj-jgxspxy completes the activity by him/herself with no assistance from a helper. 5-Set-up or Clean-up Assistance-helper sets up or cleans up; patient completes activity. [place] assists only prior to or following the activity. 4-Supervision or Touching Assistance-helper provides verbal cues and/or touching/steadying and/or contact guard assistance as patient completes activity. Assistance may be provided throughout the activity or intermittently. 3-Partial/Moderate Assistance-helper does LESS THAN HALF the effort. [place] lifts, holds or supports trunk or limbs, but provides less than half the effort. 2-Substantial/Maximal Assistance-helper does MORE THAN HALF the effort. [place] lifts or holds trunk or limbs and provides more than half the effort. 5-Ashyilncc-ilhzwy does ALL the effort. Patient does none of the effort to complete the activity. Or, the assistance of 2 or more helpers is required for the patient to complete the activity. If activity was not attempted, code reason: 7-Patient Refused. 9-Not Applicable-not attempted and the patient did not perform the activity before the current illness, exacerbation or injury. 10-Not Attempted due to Environmental Limitations-(lack of equipment, weather restraints, etc.). 88-Not Attempted due to Medical Conditions or Safety Concerns. Sit to Lying (QC): 6 Lying to Sitting/Side of Bed(Q: 6 Sit to Stand (QC): 6 Weight Bearing Right Lower Extremity: Right Weight Bearing/Tolerated Left Lower Extremity: Left Weight Bearing/Tolerated Gait Training Distance: >500' Walk 10 feet (QC): 6 Walk 50 ft with 2 Turns(QC): 6 Walk 150 ft (QC): 6 Walking 10ft/uneven surface-QC: 6 Gait Assistive Device: None safe and functional with no deviation Stair Training Stair Training: Handrails/: 2 handrails #of Steps: 12 1 Step (curb) (QC): 6 4 Steps (QC): 6 12 Steps (QC): 6 Stairs: Pattern: Step to Assessment Patient much improved on this date and wishes to go home. Patient is currently independent with all gross motor skill. PT to dismiss patient from services at this time. PT Special Education Professional Goals Special Education Professional Goals PT Special Education Professional Goals Time Frame: Jul 01, 2022 Roll Left & Right (QC): 6 Sit to Lying (QC): 6 Lying-Sitting on Side/Bed(QC): 6 Sit to Stand (QC): 6 Chair/Foy-gl-Tmvbu Xfer(QC): 6 Toilet Transfer (QC): 6 Walk 10 feet (QC): 6 Walk 50ft with 2 Turns (QC): 6 Walk 150 ft (QC): 6 1 Step (curb) (QC): 6 4 Steps (QC): 6 12 Steps (QC): 6 PT Plan Treatment/Plan Treatment Plan: Discontinue PT, goals met Treatment Plan: Education, Functional Activity Kain, Functional Strength, Gait, Safety, Therapeutic Exercise Treatment Duration: Jul 01, 2022 Frequency: 6 times per week Estimated Hrs Per Day: .25 hour per day Patient and/or Family Agrees t: Yes Time Time In: 945 Time Out: 955 DATE: Jun 21, 2022 Total Billed Treatment Time: 10 Total Billed Treatment 1 visit FA 10 min MADISON JONES PT Jun 21, 2022 10:07
[2022-06-21 11:44] VITALS: BP 173/89
[2022-06-21] MEDS: ENOXAPARIN 40 MG/0.4 ML (LOVENOX) SYR SC SCH (12:16)
[2022-06-21] MEDS ORDERED: amLODIPine 5 MG (NORVASC) TAB PO NR (12:30)
[2022-06-21 15:09] VITALS: BP 177/78
[2022-06-21 19:33] VITALS: BP 175/80
[2022-06-21] MEDS ORDERED: cloNIDine 0.1 MG (CATAPRES) TAB PO PRN (20:45)
[2022-06-21] MEDS ORDERED: hydrALAZINE (APRESOLINE) 25 MG TAB ONE (21:20)
[2022-06-21] MEDS: hydrALAZINE (APRESOLINE) 25 MG TAB PO SCH (21:43)
[2022-06-21 23:25] VITALS: BP 149/77
[2022-06-22 03:24] VITALS: BP 130/66
[2022-06-22 06:14] LABS: BASOPHILS % (AUTO) 1 % (0-10); EOSINOPHILS # (AUTO) 0.3 10^3/uL (0.0-0.3); EOSINOPHILS % (AUTO) 5 % (0-10); HEMATOCRIT 48 % (35-52); HEMOGLOBIN 16.1 g/dL (11.5-16.0); LYMPHOCYTES # (AUTO) 1.7 10^3/uL (1.0-4.0); LYMPHOCYTES % (AUTO) 34 % (12-44); MEAN CORPUSCULAR HEMOGLOBIN 31 pg (25-34); MEAN CORPUSCULAR HGB CONC 34 g/dL (32-36); MEAN CORPUSCULAR VOLUME 91 fL (80-99); MEAN PLATELET VOLUME 9.9 fL (9.0-12.2); MONOCYTES # (AUTO) 0.7 10^3/uL (0.0-1.0); MONOCYTES % (AUTO) 13 % (0-12); NEUTROPHILS # (AUTO) 2.4 10^3/uL (1.8-7.8); NEUTROPHILS % (AUTO) 48 % (42-75); PLATELET COUNT 183 10^3/uL (130-400); WHITE BLOOD COUNT 5.1 10^3/uL (4.3-11.0)
[2022-06-22 06:40] LABS: ALBUMIN 3.8 GM/DL (3.2-4.5); POTASSIUM 4.2 MMOL/L (3.6-5.0)
[2022-06-22 06:41] LABS: CALCIUM 9.5 MG/DL (8.5-10.1)
[2022-06-22 06:43] LABS: TOTAL PROTEIN 7.2 GM/DL (6.4-8.2)
[2022-06-22 06:44] LABS: BILIRUBIN,TOTAL 0.7 MG/DL (0.1-1.0)
[2022-06-22 06:46] LABS: CREATININE SERUM 0.85 MG/DL (0.60-1.30)
[2022-06-22 06:49] LABS: MAGNESIUM 1.9 MG/DL (1.6-2.4)
[2022-06-22] MEDS ORDERED: AMLO-250 PO (07:14)
[2022-06-22] MEDS ORDERED: HYDR-3923 PO (07:14)
[2022-06-22] MEDS ORDERED: ASPI81TA64 PO (07:14)
[2022-06-22] MEDS ORDERED: ATOR80TA76 PO (07:14)
[2022-06-22 08:00] VITALS: BP 163/89
[2022-06-22] MEDS: NICOTINE 21 MG (NICODERM) PATCH TD SCH (09:02)
[2022-06-22] MEDS: amLODIPine 5 MG (NORVASC) TAB PO SCH (09:03)
[2022-06-22] MEDS: DOCUSATE SODIUM 100 MG (COLACE) CAP PO SCH (09:03)
[2022-06-22] MEDS: PATCH REMOVAL TP SCH (09:03)
[2022-06-22] MEDS: SENNOSIDES 8.6 MG (SENOKOT) TAB PO SCH (09:03)
[2022-06-22] MEDS: hydrALAZINE (APRESOLINE) 25 MG TAB PO SCH (09:03)
[2022-06-22] MEDS: ASPIRIN 81 MG CHEW (CHILDREN'S ASA) PO SCH (09:03)
[2022-06-22 10:17] VITALS: BP 163/89
--- NOTE | 2022-06-23 05:10 | Discharge Summary ---
Diagnosis/Chief Complaint Date of Admission Jun 18, 2022 at 22:38 Date of Discharge Jun 22, 2022 at 10:34 Discharge Date: Jun 22, 2022 Discharge Diagnosis CVA HTN Meth use Discharge Summary Discharge Physical Examination Allergies: Coded Allergies: No Known Drug Allergies (Unverified , 06/18/22) Vitals & I&Os Vital Signs Date Time Temp Pulse Resp B/P (MAP) Pulse Ox O2 Delivery O2 Flow Rate FiO2 06/22/22 10:17 36.3 90 16 163/89 95 Room Air Hospital Course Was the Problem List Reviewed?: Yes Short course after she was admitted to ICU fro CVA with HTN. Meth use noted. Overall she did well and had CVA w/u without source. Cognition was an issue and the decision was made to move to ARU for short course to be sure she was safe to DC home. Labs (last 24 hrs) Laboratory Tests 06/18/22 18:34: Glucometer 114H 06/18/22 18:35: Influenza Type A (RT-PCR) Not Detected, Influenza Type B (RT-PCR) Not Detected, SARS-CoV-2 RNA (RT-PCR) Not Detected 06/18/22 18:55: White Blood Count 6.3, Red Blood Count 5.09, Hemoglobin 15.8, Hematocrit 46, Mean Corpuscular Volume 90, Mean Corpuscular Hemoglobin 31, Mean Corpuscular Hemoglobin Concent 34, Red Cell Distribution Width 13.6, Platelet Count 180, Mean Platelet Volume 9.7, Immature Granulocyte % (Auto) 0, Neutrophils (%) (Auto) 76H, Lymphocytes (%) (Auto) 15, Monocytes (%) (Auto) 7, Eosinophils (%) (Auto) 2, Basophils (%) (Auto) 1, Neutrophils # (Auto) 4.8, Lymphocytes # (Auto) 1.0, Monocytes # (Auto) 0.4, Eosinophils # (Auto) 0.1, Basophils # (Auto) 0.0, Immature Granulocyte # (Auto) 0.0, Prothrombin Time 14.0, INR Comment 1.0, Activated Partial Thromboplast Time 27, D-Dimer 0.86H, Urine Color YELLOW, Urine Clarity CLEAR, Urine pH 6.0, Urine Specific Equality 1.025H, Urine Protein 2+H, Urine Glucose (UA) NEGATIVE, Urine Ketones NEGATIVE, Urine Nitrite NEGATIVE, Urine Bilirubin NEGATIVE, Urine Urobilinogen 0.2, Urine Leukocyte Esterase NEGATIVE, Urine RBC (Auto) NEGATIVE, Urine RBC NONE, Urine WBC 0-2, Urine Squamous Epithelial Cells 0-2, Urine Crystals NONE, Urine Bacteria TRACE, Urine Casts PRESENT, Urine Hyaline Casts 0-2H, Urine Mucus LARGEH, Urine Culture Indicated NO, Sodium Level 140, Potassium Level 3.6, Chloride Level 105, Carbon Dioxide Level 23, Anion Gap 12, Blood Urea Nitrogen 13, Creatinine 0.89, Estimat Glomerular Filtration Rate 74, BUN/Creatinine Ratio 15, Glucose Level 129H, Calcium Level 9.4, Corrected Calcium 9.3, Total Bilirubin 0.6, Aspartate Amino Transf (AST/SGOT) 17, Alanine Aminotransferase (ALT/SGPT) 19, Alkaline Phosphatase 84, Troponin I < 0.028, Total Protein 7.7, Albumin 4.1, Thyroid Stimulating Hormone (TSH) 5.49H, Free Thyroxine 0.81, Urine Opiates Screen NEGATIVE, Urine Oxycodone Screen NEGATIVE, Urine Methadone Screen NEGATIVE, Urine Propoxyphene Screen NEGATIVE, Urine Barbiturates Screen NEGATIVE, Ur Tricyclic Antidepressants Screen NEGATIVE, Urine Phencyclidine Screen NEGATIVE, Urine Amphetamines Screen POSITIVEH, Urine Methamphetamines Screen POSITIVEH, Urine Benzodiazepines Screen NEGATIVE, Urine Cocaine Screen NEGATIVE, Urine Cannabinoids Screen NEGATIVE, Serum Alcohol < 10 06/18/22 23:22: Glucometer 94 06/19/22 03:35: White Blood Count 5.8, Red Blood Count 5.24H, Hemoglobin 16.0, Hematocrit 47, Mean Corpuscular Volume 90, Mean Corpuscular Hemoglobin 31, Mean Corpuscular Hemoglobin Concent 34, Red Cell Distribution Width 13.4, Platelet Count 185, Mean Platelet Volume 10.1, Immature Granulocyte % (Auto) 0, Neutrophils (%) (Auto) 50, Lymphocytes (%) (Auto) 37, Monocytes (%) (Auto) 10, Eosinophils (%) (Auto) 3, Basophils (%) (Auto) 1, Neutrophils # (Auto) 2.9, Lymphocytes # (Auto) 2.1, Monocytes # (Auto) 0.6, Eosinophils # (Auto) 0.2, Basophils # (Auto) 0.0, Immature Granulocyte # (Auto) 0.0, Sodium Level 140, Potassium Level 3.1L, Chloride Level 105, Carbon Dioxide Level 21, Anion Gap 14, Blood Urea Nitrogen 9, Creatinine 0.75, Estimat Glomerular Filtration Rate 91, BUN/Creatinine Ratio 12, Glucose Level 89, Calcium Level 9.4, Corrected Calcium 9.6, Phosphorus Level 2.9, Magnesium Level 1.9, Total Bilirubin 0.7, Aspartate Amino Transf (AST/SGOT) 19, Alanine Aminotransferase (ALT/SGPT) 14, Alkaline Phosphatase 82, Total Protein 7.2, Albumin 3.8, Triglycerides Level 58, Cholesterol Level 183, LDL Cholesterol Direct 96, VLDL Cholesterol 12, HDL Cholesterol 67H 06/20/22 04:26: White Blood Count 6.3, Red Blood Count 4.92, Hemoglobin 15.0, Hematocrit 45, Mean Corpuscular Volume 91, Mean Corpuscular Hemoglobin 31, Mean Corpuscular Hemoglobin Concent 34, Red Cell Distribution Width 13.7, Platelet Count 192, Mean Platelet Volume 9.9, Immature Granulocyte % (Auto) 0, Neutrophils (%) (Auto) 59, Lymphocytes (%) (Auto) 29, Monocytes (%) (Auto) 9, Eosinophils (%) (Auto) 3, Basophils (%) (Auto) 0, Neutrophils # (Auto) 3.7, Lymphocytes # (Auto) 1.8, Monocytes # (Auto) 0.6, Eosinophils # (Auto) 0.2, Basophils # (Auto) 0.0, Immature Granulocyte # (Auto) 0.0, Sodium Level 138, Potassium Level 4.1, Chloride Level 106, Carbon Dioxide Level 21, Anion Gap 11, Blood Urea Nitrogen 12, Creatinine 0.81, Estimat Glomerular Filtration Rate 83, BUN/Creatinine Ratio 15, Glucose Level 102, Calcium Level 9.2, Corrected Calcium 9.4, Phosphorus L evel 2.2L, Magnesium Level 2.2, Total Bilirubin 0.5, Aspartate Amino Transf (AST/SGOT) 19, Alanine Aminotransferase (ALT/SGPT) 12, Alkaline Phosphatase 79, Total Protein 7.3, Albumin 3.8 06/21/22 05:10: White Blood Count 5.3, Red Blood Count 5.29H, Hemoglobin 16.5H, Hematocrit 48, Mean Corpuscular Volume 91, Mean Corpuscular Hemoglobin 31, Mean Corpuscular Hemoglobin Concent 34, Red Cell Distribution Width 13.9, Platelet Count 172, Gayatri n Platelet Volume 10.4, Immature Granulocyte % (Auto) 0, Neutrophils (%) (Auto) 47, Lymphocytes (%) (Auto) 35, Monocytes (%) (Auto) 13H, Eosinophils (%) (Auto) 4, Basophils (%) (Auto) 1, Neutrophils # (Auto) 2.5, Lymphocytes # (Auto) 1.9, Monocytes # (Auto) 0.7, Eosinophils # (Auto) 0.2, Basophils # (Auto) 0.0, Immature Granulocyte # (Auto) 0.0, Sodium Level 139, Potassium Level 3.9, Chloride Level 105, Carbon Dioxide Level 18L, Anion Gap 16H, Blood Urea Nitrogen 18, Creatinine 0.82, Estimat Glomerular Filtration Rate 82, BUN/Creatinine Ratio 22, Glucose Level 102, Calcium Level 9.3, Corrected Calcium 9.6, Magnesium Level 2.0, Total Bilirubin 0.7, Aspartate Amino Transf (AST/SGOT) 19, Alanine Ami notransferase (ALT/SGPT) 13, Alkaline Phosphatase 73, Total Protein 7.1, Albumin 3.6 06/22/22 05:43: White Blood Count 5.1, Red Blood Count 5.26H, Hemoglobin 16.1H, Hematocrit 48, Mean Corpuscular Volume 91, Mean Corpuscular Hemoglobin 31, Mean Corpuscular Hemoglobin Concent 34, Red Cell Distribution Width 13.5, Platelet Count 183, Mean Platelet Volume 9.9, Immature Granulocyte % (Auto) 0, Neutrophils (%) (Auto) 48, Lymphocytes (%) (Auto) 34, Monocytes (%) (Auto) 13H, Eosinophils (%) (Auto) 5, Basophils (%) (Auto) 1, Neutrophils # (Auto) 2.4, Lymphocytes # (Auto) 1.7, Monocytes # (Auto) 0.7, Eosinophils # (Auto) 0.3, Basophils # (Auto) 0.0, Immature Granulocyte # (Auto) 0.0, Sodium Level 139, Potassium Level 4.2, Chloride Level 106, Carbon Dioxide Level 23, Anion Gap 10, Blood Urea Nitrogen 20H, Creatinine 0.85, Estimat Glomerular Filtration Rate 78, BUN/Creatinine Ratio 24, Glucose Level 103, Calcium Level 9.5, Corrected Calcium 9.7, Magnesium Level 1.9, Total Bilirubin 0.7, Aspartate Amino Transf (AST/SGOT) 18, Alanine Aminotransferase (ALT/SGPT) 18, Alkaline Phosphatase 83, Total Protein 7.2, Albumin 3.8 Microbiology 06/18/22 MRSA Screen - Final, Complete MRSA not isolated Pending Labs Microbiology Date/Time Source Procedure Growth Status 06/18/22 22:54 Nasal MRSA Screen - Final MRSA not isolated Complete Laboratory Tests 06/18/22 18:34: Glucometer 114 06/18/22 18:35: Influenza Type A (RT-PCR) Not Detected, Influenza Type B (RT-PCR) Not Detected, SARS-CoV-2 RNA (RT-PCR) Not Detected 06/18/22 18:55: White Blood Count 6.3, Red Blood Count 5.09, Hemoglobin 15.8, Hematocrit 46, Mean Corpuscular Volume 90, Mean Corpuscular Hemoglobin 31, Mean Corpuscular Hemoglobin Concent 34, Red Cell Distribution Width 13.6, Platelet Count 180, Mean Platelet Volume 9.7, Immature Granulocyte % (Auto) 0, Neutrophils (%) (Auto) 76, Lymphocytes (%) (Auto) 15, Monocytes (%) (Auto) 7, Eosinophils (%) (Auto) 2, Basophils (%) (Auto) 1, Neutrophils # (Auto) 4.8, Lymphocytes # (Auto) 1.0, Monocytes # (Auto) 0.4, Eosinophils # (Auto) 0.1, Basophils # (Auto) 0.0, Immature Granulocyte # (Auto) 0.0, Prothrombin Time 14.0, INR Comment 1.0, Activated Partial Thromboplast Time 27, D-Dimer 0.86, Urine Color YELLOW, Urine Clarity CLEAR, Urine pH 6.0, Urine Specific Equality 1.025, Urine Protein 2+, Urine Glucose (UA) NEGATIVE, Urine Ketones NEGATIVE, Urine Nitrite NEGATIVE, Urine Bilirubin NEGATIVE, Urine Urobilinogen 0.2, Urine Leukocyte Esterase NEGATIVE, Urine RBC (Auto) NEGATIVE, Urine RBC NONE, Urine WBC 0-2, Urine Squamous Epithelial Cells 0-2, Urine Crystals NONE, Urine Bacteria TRACE, Urine Casts PRESENT, Urine Hyaline Casts 0-2, Urine Mucus LARGE, Urine Culture Indicated NO, Sodium Level 140, Potassium Level 3.6, Chloride Level 105, Carbon Dioxide Level 23, Anion Gap 12, Blood Urea Nitrogen 13, Creatinine 0.89, Estimat Glomerular Filtration Rate 74, BUN/Creatinine Ratio 15, Glucose Level 129, Calcium Level 9.4, Corrected Calcium 9.3, Total Bilirubin 0.6, Aspartate Amino Transf (AST/SGOT) 17, Alanine Aminotransferase (ALT/SGPT) 19, Alkaline Phosphatase 84, Troponin I < 0.028, Total Protein 7.7, Albumin 4.1, Thyroid Stimulating Hormone (TSH) 5.49, Free Thyroxine 0.81, Urine Opiates Screen NEGATIVE, Urine Oxycodone Screen NEGATIVE, Urine Methadone Screen NEGATIVE, Urine Propoxyphene Screen NEGATIVE, Urine Barbiturates Screen NEGATIVE, Ur Tricyclic Antidepressants Screen NEGATIVE, Urine Phencyclidine Screen NEGATIVE, Urine Amphetamines Screen POSITIVE, Urine Methamphetamines Screen POSITIVE, Urine Benzodiazepines Screen NEGATIVE, Urine Cocaine Screen NEGATIVE, Urine Cannabinoids Screen NEGATIVE, Serum Alcohol < 10 06/18/22 23:22: Glucometer 94 06/19/22 03:35: White Blood Count 5.8, Red Blood Count 5.24, Hemoglobin 16.0, Hematocrit 47, Mean Corpuscular Volume 90, Mean Corpuscular Hemoglobin 31, Mean Corpuscular Hemoglobin Concent 34, Red Cell Distribution Width 13.4, Platelet Count 185, Mean Platelet Volume 10.1, Immature Granulocyte % (Auto) 0, Neutrophils (%) (Auto) 50, Lymphocytes (%) (Auto) 37, Monocytes (%) (Auto) 10, Eosinophils (%) (Auto) 3, Basophils (%) (Auto) 1, Neutrophils # (Auto) 2.9, Lymphocytes # (Auto) 2.1, Monocytes # (Auto) 0.6, Eosinophils # (Auto) 0.2, Basophils # (Auto) 0.0, Immature Granulocyte # (Auto) 0.0, Sodium Level 140, Potassium Level 3.1, Ch loride Level 105, Carbon Dioxide Level 21, Anion Gap 14, Blood Urea Nitrogen 9, Creatinine 0.75, Estimat Glomerular Filtration Rate 91, BUN/Creatinine Ratio 12, Glucose Level 89, Calcium Level 9.4, Corrected Calcium 9.6, Phosphorus Level 2.9, Magnesium Level 1.9, Total Bilirubin 0.7, Aspartate Amino Transf (AST/SGOT) 19, Alanine Aminotransferase (ALT/SGPT) 14, Alkaline Phosphatase 82, Total Protein 7.2, Albumin 3.8, Triglycerides Level 58, Cholesterol Level 183, LDL Cholesterol Direct 96, VLDL Cholesterol 12, HDL Cholesterol 67 06/20/22 04:26: White Blood Count 6.3, Red Blood Count 4.92, Hemoglobin 15.0, Hematocrit 45, Mean Corpuscular Volume 91, Mean Corpuscular Hemoglobin 31, Mean Corpuscular Hemoglobin Concent 34, Red Cell Distribution Width 13.7, Platelet Count 192, Mean Platelet Volume 9.9, Immature Granulocyte % (Auto) 0, Neutrophils (%) (Auto) 59, Lymphocytes (%) (Auto) 29, Monocytes (%) (Auto) 9, Eosinophils (%) (Auto) 3, Basophils (%) (Auto) 0, Neutrophils # (Auto) 3.7, Lymphocytes # (Auto) 1.8, Monocytes # (Auto) 0.6, Eosinophils # (Auto) 0.2, Basophils # (Auto) 0.0, Immature Granulocyte # (Auto) 0.0, Sodium Level 138, Potassium Level 4.1, Chloride Level 106, Carbon Dioxide Level 21, Anion Gap 11, Blood Urea Nitrogen 12, Creatinine 0.81, Estimat Glomerular Filtration Rate 83, BUN/Creatinine Ratio 15, Glucose Level 102, Calcium Level 9.2, Corrected Calcium 9.4, Phosphorus Level 2.2, Magnesium Level 2.2, Total Bilirubin 0.5, Aspartate Amino Transf (AST/SGOT) 19, Alanine Aminotransferase (ALT/SGPT) 12, Alkaline Phosphatase 79, Total Protein 7.3, Albumin 3.8 06/21/22 05:10: White Blood Count 5.3, Red Blood Count 5.29, Hemoglobin 16.5, Hematocrit 48, Mean Corpuscular Volume 91, Mean Corpuscular Hemoglobin 31, Mean Corpuscular Hemoglobin Concent 34, Red Cell Distribution Width 13.9, Platelet Count 172, Mean Platelet Volume 10.4, Immature Granulocyte % (Auto) 0, Neutrophils (%) (Auto) 47, Lymphocytes (%) (Auto) 35, Monocytes (%) (Auto) 13, Eosinophils (%) (Auto) 4, Basophils (%) (Auto) 1, Neutrophils # (Auto) 2.5, Lymphocytes # (Auto) 1.9, Monocytes # (Auto) 0.7, Eosinophils # (Auto) 0.2, Basophils # (Auto) 0.0, Immature Granulocyte # (Auto) 0.0, Sodium Level 139, Potassium Level 3.9, Chloride Level 105, Carbon Dioxide Level 18, Anion Gap 16, Blood Urea Nitrogen 18, Creatinine 0.82, Estimat Glomerular Filtration Rate 82, BUN/Creatinine Ratio 22, Glucose Level 102, Calcium Level 9.3, Corrected Calcium 9.6, Magnesium Level 2.0, Total Bilirubin 0.7, Aspartate Amino Transf (AST/SGOT) 19, Alanine Aminotransferase (ALT/SGPT) 13, Alkaline Phosphatase 73, Total Protein 7.1, Albumin 3.6 06/22/22 05:43: White Blood Count 5.1, Red Blood Count 5.26, Hemoglobin 16.1, Hematocrit 48, Mean Corpuscular Volume 91, Mean Corpuscular Hemoglobin 31, Mean Corpuscular Hemoglobin Concent 34, Red Cell Distribution Width 13.5, Platelet Count 183, Mean Platelet Volume 9.9, Immature Granulocyte % (Auto) 0, Neutrophils (%) (Auto) 48, Lymphocytes (%) (Auto) 34, Monocytes (%) (Auto) 13, Eosinophils (%) (Auto) 5, Basophils (%) (Auto) 1, Neutrophils # (Auto) 2.4, Lymphocytes # (Auto) 1.7, Monocytes # (Auto) 0.7, Eosinophils # (Auto) 0.3, Basophils # (Auto) 0.0, Immature Granulocyte # (Auto) 0.0, Sodium Level 139, Potassium Level 4.2, Ch loride Level 106, Carbon Dioxide Level 23, Anion Gap 10, Blood Urea Nitrogen 20, Creatinine 0.85, Estimat Glomerular Filtration Rate 78, BUN/Creatinine Ratio 24, Glucose Level 103, Calcium Level 9.5, Corrected Calcium 9.7, Magnesium Level 1.9, Total Bilirubin 0.7, Aspartate Amino Transf (AST/SGOT) 18, Alanine Aminotransferase (ALT/SGPT) 18, Alkaline Phosphatase 83, Total Protein 7.2, Albumin 3.8 Discharge Home Medications: Active Scripts Active Children's Aspirin (Aspirin) 81 Mg Tab.chew 81 Mg PO DAILY Amlodipine Besylate 5 Mg Tablet 5 Mg PO DAILY Hydralazine HCl 25 Mg Tablet 25 Mg PO TID Atorvastatin Calcium 80 Mg Tablet 80 Mg PO HS Instructions to patient/family Please see electronic discharge instructions given to patient. ROSIE MACDONALD DO Jun 23, 2022 05:10
== END 2022-06-22 10:34 | DRG 65 ==
LOC: EDUNIT# 18:00 → ER 18:02 → ICU 22:38 → 4TH 06-20 12:15
PROVIDERS: ADMIT Internal Medicine; ATTEND Internal Medicine
DX: I63.9 Cerebral infarction, unspecified (principal); G81.94 Hemiplegia, unspecified affecting left nondominant side; I16.1 Hypertensive emergency; I10 Essential (primary) hypertension; R29.708 NIHSS score 8; R29.810 Facial weakness; R47.01 Aphasia; R27.0 Ataxia, unspecified; R41.0 Disorientation, unspecified; Z20.822 Contact with and (suspected) exposure to COVID-19; F15.10 Other stimulant abuse, uncomplicated; F17.210 Nicotine dependence, cigarettes, uncomplicated
CPT/HCPCS: 36415; 51702; 70450; 70496; 70498; 71045; 80053; 80061; 80306; 80320; 81000; 82947; 83735; 84100; 84439; 84443; 84484; 85025; 85379; 85610; 85730; 87081; 87636; 93005; 93041; 93306; 93880

== ENCOUNTER 2022-06-22 08:41 | Inpatient (IN) | payer SELFPAY ==
[~2022-06-22] VITALS: Ht 162.6 cm; Wt 71.3 kg
[~2022-06-22 08:41] MED LIST: AMLO-250 PO; ASPI81TA64 PO; ATOR80TA76 PO; HYDR-3923 PO
[2022-06-22 10:44] VITALS: BP 176/82
--- NOTE | 2022-06-22 11:20 | Physical Therapy Evaluation ---
PT Evaluation-General Medical Diagnosis Admission Date Jun 22, 2022 at 10:45 Medical Diagnosis: CVA Onset Date: Jun 18, 2022 Therapy Diagnosis Therapy Diagnosis: independent with mobility except stairs, some visual impairments Referral Physician: Racheal Kenney DO Reason for Referral: Evaluation/Treatment Medical History Pertinent Medical History: CVA, HTN, Smoking Reviewed History: Yes Social History Home: [facility] Current Living Status: Alone Entry Into Home: Stairs Without Railing PT Steps Into Home: 1 Patient states her sister is going to stay with her for a while and that she doesn't have to go upstairs at her home Prior Prior Level of Function SCALE: Activities may be completed with or without assistive devices. 5-Hoofpvvera-ttrrsct completes the activity by him/herself with no assistance from a helper. 5-Set-up or Clean-up Assistance-helper sets up or cleans up; patient completes activity. [place] assists only prior to or following the activity. 4-Supervision or Touching Assistance-helper provides verbal cues and/or touching/steadying and/or contact guard assistance as patient completes activity. Assistance may be provided throughout the activity or intermittently. 3-Partial/Moderate Assistance-helper does LESS THAN HALF the effort. [place] lift s, holds or supports trunk or limbs, but provides less than half the effort. 2-Substantial/Maximal Assistance-helper does MORE THAN HALF the effort. [place] lifts or holds trunk or limbs and provides more than half the effort. 4-Ckrderjka-vchrjc does ALL the effort. Patient does none of the effort to complete the activity. Or, the assistance of 2 or more helpers is required for the patient to complete the activity. If activity was not attempted, code reason: 7-Patient Refused. 9-Not Applicable-not attempted and the patient did not perform the activity before the current illness, exacerbation or injury. 10-Not Attempted due to Environmental Limitations-(lack of equipment, weather restraints, etc.). 88-Not Attempted due to Medical Conditions or Safety Concerns. Bed Mobility: 6 Transfers (B,C,W/C): 6 Gait: 6 Stairs: 6 Indoor Mobility (Ambulation): Independent Stairs: Independent PT Evaluation-Current Subjective Patient in bed pre tx, agrees to PT, has no complaints of pain. Will be co- treating with OT for part of tx due to recent CVA, coordinate UE and LE during activity, safety and reduce risk of falls. Pain Section J - Health Conditions 1. Rarely or not at all 2. Occasionally 3. Frequently 4. Almost constantly 8. Unable to answer Pain Effect on Sleep: 1 Pain Interference with Therapy: 1 Pain Interference w/Day-to-Day: 1 Pt/Family Goals to be independent at home Objective Patient Orientation: Person, Place, Situation ROM/Strength ROM Lower Extremities WNL Strength Lower Extremities LLE (hip flexion 4/5, knee flexion 4+/5, knee extension 4+/5, dorsiflexion 4+/5), RLE (hip flexion 4/5, knee flexion 4+/5, knee extension 4+/5, dorsiflexion 4+/5) Neuromuscular (Tone, Coordination, Reflexes) Patient has intact tracking bilaterally, slightly impaired peripheral vision on the left side. Patient states she has some blurry vision on the left side. Patient has good coordination of BLE (tested with guerrier slide), but slightly impaired nose to finger test (patient states she has impaired depth perception and has difficulty eating because of this) Sensory Vision: Hearing: Functional Sensation Right Lower Extremit: Intact Sensation Left Lower Extremity: Intact Transfers Roll Left & Right (QC): 6 Sit to Lying (QC): 6 Lying to Sitting/Side of Bed(Q: 6 Sit to Stand (QC): 6 Chair/Kxr-fg-Gwgtj Xfer(QC): 6 Toilet Transfer (QC): 6 Car Transfer (QC): 6 Gait Does the Patient Walk?: Yes Mode of Locomotion: Walk Anticipated Mode of Locomotion: Walk Walk 10 feet (QC): 6 Walk 50 ft with 2 Turns(QC): 6 Walk 150 ft (QC): 6 Walking 10ft/uneven surface-QC: 6 Distance: 300'x2, 150' Gait Assistive Device: None Comments/Gait Description Patient started using the rolling walker with ambulation but transitioned to not using an assistive device and is independent with ambulation that way Wheelchair Training Does the Pt Use a Wheelchair?: No Wheel 50 ft with 2 turns (QC): 9 Wheel 150 ft (QC): 9 Stairs #of Steps: 12 1 Step (curb) (QC): 4 4 Steps (QC): 4 12 Steps (QC): 4 SBA using 2 handrails Balance Sitting Static: Normal Sitting Dynamic: Normal Standing Static: Normal Standing Dynamic: Normal Picking up an Object (QC): 6 (no audio visual tech used) Special Test Comments Patient scored 28/28 on the Tinetti Assessment Tool. May test her with a Cid Balance Scale soon. Treatment Patient also performed bathing and dressing. PT performed bed mobility and transfers, ambulation, stair training, positioning and safety during bathing and dressing and ADL's, OT performed bathing, dressing, ADL's, UE positioning and safety during activity. Assessment/Needs Patient in bed post tx with nurse call, phone, tray, all needs met. Patient is independent with mobility except for stairs, has some visual impairments. Rehab Potential: Good PT Penitentiary Goals Cotton Weigher Operator Goals PT Cotton Weigher Operator Goals Time Frame: Jul 06, 2022 Roll Left to Right (QC): 6 Sit to Lying (QC): 6 Lying-Sitting on Side/Bed(QC): 6 Sit to Stand (QC): 6 Chair/Pjy-mi-Xiodk Xfer(QC): 6 Toilet/Commode Transfer (QC): 6 Car Transfer (QC): 6 Walk 10 feet (QC): 6 Walk 10ft-Uneven Surface(QC): 6 Walk 50ft with 2 Turns (QC): 6 Walk 150 ft (QC): 6 Wheel 50 feet with 2 turns (QC: 9 Wheel 150 feet: 9 1 Step (curb) (QC): 6 4 Steps (QC): 6 12 Steps (QC): 6 Picking up an Object (QC): 6 PT Plan Problem List Problem List: Activity Tolerance, Functional Strength, Safety, Balance, Gait, Transfer, Bed Mobility, ROM Treatment/Plan Treatment Plan: Continue Plan of Care Treatment Plan: Bed Mobility, Education, Functional Activity Kain, Functional Strength, Group Therapy, Gait, Safety, Therapeutic Exercise, Transfers Treatment Duration: Jul 06, 2022 Frequency: At least 5 of 7 days/Wk (IRF) Estimated Hrs Per Day: 1.5 hours per day Patient and/or Family Agrees t: Yes Safety Risks/Education Patient Education: Gait Training, Transfer Techniques, Steps, Correct Positioning, Safety Issues Teaching Recipient: Patient Teaching Methods: Demonstration, Discussion Response to Teaching: Reinforcement Needed Discharge Recommendations Plan Patient will perform bed mobility and transfer training, balance and endurance training, functional strengthening, stair training, gait training, and education, to improve functional mobility and independence at home. Therapy Discharge Recommendati: Home & Family Time Time In: 1045 Time Out: 1200 DATE: Jun 22, 2022 Total Billed Treatment Time: 65 Total Billed Treatment 1 visit EVL 10' FA 55' (only charge 3 units) PT eval from [id number], OT eval from [id number], co-treat from [id number] JESÚS BARNEY PT Jun 22, 2022 11:20
[2022-06-22] MEDS ORDERED: ANTACID SUSP 30 ML UDC (MYLANTA) PO PRN (11:45)
[2022-06-22] MEDS ORDERED: MELATONIN 3 MG TABLET PO PRN ×2 (11:45)
[2022-06-22] MEDS ORDERED: ALPRAZolam 0.25 MG (XANAX) TAB PO PRN (11:45)
[2022-06-22] MEDS ORDERED: LACTULOSE SYRUP 10GM/15ML (ENULOSE) 30ML UDC PO PRN ×2 (11:45)
[2022-06-22] MEDS ORDERED: diphenhydrAMINE 25 MG TAB (BENADRYL) PO PRN ×2 (11:45)
[2022-06-22] MEDS ORDERED: MILK OF MAGNESIA 400 MG/5 ML 30 ML UDC PO PRN (11:45)
[2022-06-22] MEDS ORDERED: LORazepam 0.5 MG (ATIVAN) TABLET PO PRN (11:45)
[2022-06-22] MEDS ORDERED: guaiFENesin/CODEINE (ROBITUSSIN AC) 10ML UDC PO PRN (11:45)
[2022-06-22] MEDS ORDERED: polyethylene glycoL POWDER 17 GM (MIRALAX) PACK PO PRN (11:45)
[2022-06-22] MEDS ORDERED: FLEET ENEMA ADULT 1 EA BTL PR PRN (11:45)
[2022-06-22] MEDS ORDERED: cloNIDine 0.1 MG (CATAPRES) TAB PO PRN (11:45)
[2022-06-22] MEDS ORDERED: LOPERAMIDE 2 MG (IMODIUM) TABLET PO PRN (11:45)
[2022-06-22] MEDS ORDERED: ACETAMINOPHEN 325 MG TABLET PO PRN ×2 (11:45)
[2022-06-22] MEDS ORDERED: ONDANSETRON 4 MG (ZOFRAN) ORAL DISSOLVE TAB PO PRN ×2 (11:45)
[2022-06-22] MEDS ORDERED: ONDANSETRON 4 MG/2 ML (SDV) Z0FRAN IV PRN (11:45)
[2022-06-22] MEDS ORDERED: CALCIUM CARBONATE 500 MG (TUMS) TAB.CHEW PO PRN ×2 (11:45)
[2022-06-22] MEDS ORDERED: BISACODYL 10 MG SUPP (DULCOLAX) PR PRN ×2 (11:45)
[2022-06-22] MEDS ORDERED: DOCUSATE SODIUM 100 MG (COLACE) CAP PO PRN (11:45)
[2022-06-22] MEDS ORDERED: diphenhydrAMINE 50 MG/ML INJ (BENADRYL) IVP PRN (11:45)
--- NOTE | 2022-06-22 11:46 | PM&R Post Admission Assessment ---
PM&R HP Date of Visit: Jun 22, 2022 Time of Visit: 11:00 History of Present Illness CC: CVA HPI: This is a 61yoWF clinic patient of [facility] who presents to ARU following CVA. Med surg HPI: Joan Pretty is a 61 yo F w/ hx of methamphetamine use, tobacco use, and HTN who presented via EMS on 06/18 with left sided weakness and slurred speech lasting for 24-48 hours since last known well. In ED she was deemed to not be a candidate for tPA or thrombectomy. ED w/u revealed normal electrolytes, blood counts, and a sinus ekg. CTH revealed an old R parietal-occipital infarct and a subacute L basal ganglia infarct. CTA was performed and revealed no medium or large vessel occlusion. A UDS was positive for amphetamines and benzos. On arrival she had left sided weakness in her arm, leg, and face, and had slurred speech. She denied having symptoms like this before. She was also found to have a SBP in the 200s, though permissive HTN allowed up to 220/110 for recent ischemic stroke. No source found on w/u. Cognition is a residual and I had concerns about her safety DC home so will admit to ARU for short course and work on cognition. Past Doonrpv-Gxqqmg-Jpgfwk Hx Past Med/Social Hx: Reviewed Nursing Past Med/Soc Hx, Reviewed and Corrections made Patient Social History Marrital Status: single Employed/Student: unemployed Alcohol Use: Denies Use Smoking Status: Current Everyday Smoker Past Medical History Cardiac: Hypertension Neurological: Stroke Family History Cancer, Diabetes, Psychiatric Problems, Other Conditions/Hx Prior Level of Function Bed Mobility: 6 Transfers: 6 Gait: 6 Stairs: 6 Indoor Mobility (Ambulation): Independent Stairs: Independent Current Level of Fuctioning Roll Left to Right: 6 Sit to Lyin Lying to Sitting/Side of Bed: 6 Sit to Stand: 6 Chair/Lal-mz-Pzgyg Xfer: 6 Car Transfer: 6 PM&R Allergy/Meds/Data Review Allergies Coded Allergies: No Known Drug Allergies (Unverified , 06/18/22) Home Medications Scheduled Amlodipine Besylate (Amlodipine Besylate), 5 MG PO DAILY Aspirin (Children's Aspirin), 81 MG PO DAILY Atorvastatin Calcium (Atorvastatin Calcium), 80 MG PO HS Hydralazine HCl (Hydralazine HCl), 25 MG PO TID Current Medications Current Medications Reviewed Review of Systems Constitutional: see HPI, malaise, weakness EENTM: no symptoms reported Respiratory: no symptoms reported Cardiovascular: no symptoms reported Gastrointestinal: no symptoms reported Genitourinary: no symptoms reported Musculoskeletal: no symptoms reported Skin: no symptoms reported Psychiatric/Neurological: Anxiety, Depressed, Paresthesia, Weakness Physical Exam Physical Exam Vital Signs Vital Signs - First Documented 06/22/22 10:44 Temp 36.4 Pulse 96 Resp 20 B/P (MAP) 176/82 (113) Pulse Ox 94 O2 Delivery Room Air Capillary Refill : Height, Weight, BMI Height: '" Weight: lbs. oz. kg; 26.96 BMI Method: General Appearance: No Apparent Distress, WD/WN Eyes: Bilateral Eye Normal Inspection, Bilateral Eye PERRL HEENT: PERRL/EOMI, TMs Normal, Normal ENT Inspection, Pharynx Normal Neck: Full Range of Motion, Normal Inspection, Non Tender, Supple, Carotid Bruit Respiratory: Chest Non Tender, Lungs Clear, Normal Breath Sounds, No Accessory Muscle Use, No Respiratory Distress Cardiovascular: Regular Rate, Rhythm, No Edema, No Gallop, No JVD, No Murmur, Normal Peripheral Pulses Gastrointestinal: Normal Bowel Sounds, No Organomegaly, No Pulsatile Mass, Non Tender, Soft Back: Normal Inspection, No CVA Tenderness, No Vertebral Tenderness Extremity: Normal Capillary Refill, Normal Inspection, Normal Range of Motion, Non Tender, No Calf Tenderness, No Pedal Edema Neurologic/Psychiatric: Alert, Oriented x3, Normal Mood/Affect, exploitation analyst II-XII Norm as Tested, Motor Weakness (generalized), Other (poor recall) Skin: Normal Color, Warm/Dry Lymphatic: No Adenopathy PM&R Medical Assessment & Plan REHAB/MEDICAL ASSESSMENT AND PLAN: REHAB IMPAIRMENT GROUP: CVA ETIOLOGIC DIAGNOSIS: CVA The comorbidities that impact the patients function and/or functional outcome by: meth use, HTN OOC, lives alone REHAB PLAN: The patient is being admitted to our comprehensive inpatient rehabilitation facility and can tolerate the intensity of service consisting of at least: 180 minutes of therapy a day, 5 out of 7 days a week Rehab treatment will consist of: PT OT ST will all help patient regain function with use of AD and help cognition deficit resolution in order to return home The patient/family has a good understanding of our discharge process and will benefit from an interdisciplinary inpatient rehabilitation program. The patient has potential to make improvement and is in need of at least two of the following multidisciplinary therapies including but not limited to physical, occupational, speech, and prosthetics and orthotics. Additionally the patient will need services from respiratory, nutritional services, wound care, psychology, etc. (Customize this to each patient). Given the patients complex condition and risk of further medical complications, rehabilitation services cannot be safely or effectively provided at a lower level of care such as a retirement facility. BARRIERS TO DISCHARGE: Cognition deficit ESTIMATED LOS: 7 days DISPOSITION: Home RELEVANT CHANGES SINCE PREADMISSION SCREENING: I have compared the patients medical and functional status at the time of the preadmission screening and there are: no changes PROGNOSIS: Good REHABILITATION GOALS: 1. PT OT ST will all help patient regain function with use of AD and help cognition deficit resolution in order to return home All the above goals were reviewed with the patient and he/she is in agreement. By signing this document, I acknowledge that I have personally performed a full physical examination on this patient within 24 hours of admission to this inpatient rehabilitation facility and have determined the patient to be able to tolerate the above course of treatment at an intensive level for a reasonable period of time. I will be completing a detailed individualized Plan of Care for this patient by day #4 of the patients stay based upon the Preadmission Screen, the Post-Admission Evaluation, and the therapy evaluations. Admission Dx/Comorbidities: (1) CVA (cerebral vascular accident) Status: Acute ICD Codes: I63.9 - Cerebral infarction, unspecified (2) Disoriented Status: Acute ICD Codes: R41.0 - Disorientation, unspecified (3) Methamphetamine abuse Status: Acute ICD Codes: F15.10 - Other stimulant abuse, uncomplicated (4) Left-sided weakness Status: Acute ICD Codes: R53.1 - Weakness (5) Malignant hypertension Status: Acute ICD Codes: I10 - Essential (primary) hypertension Assessment/Plan Assessment and Plan Assess & Plan/Chief Complaint Assessment: CVA Poor recall residual Meth use HTN OOC HLP Plan: ARU protocol Monitor closely BP management ROSIE MACDONALD DO Jun 22, 2022 11:46
--- NOTE | 2022-06-22 11:57 | Occupational Therapy Eval ---
OT Evaluation-General/PLF Medical Diagnosis Admission Date Jun 22, 2022 at 10:45 Medical Diagnosis: CVA Onset Date: Jun 18, 2022 Therapy Diagnosis Therapy Diagnosis: decreased ADL status, impaired vision Referral Physician: Racheal Kenney DO Referral Reason: Evaluation/Treatment Medical History Pertinent Medical History: CVA, HTN, Smoking Additional Medical History meth use, tobacco use, HTN Current History ED 06/18/22 with L side weakness, slurred speech. Found to have CVA, not tPA candidate. Social History Home: Multilevel ([facility]) Current Living Status: Alone Entry Into Home: Stairs Without Railing Steps Into Home: 1 Pt lives in [facility] where tub/shower is located upstairs. Pt typically sleeps downstairs in the living room. Pt has a bathroom and most things she needs on main level, but no shower on main level. Pt states she is able to complete sponge baths on main level if she doesn't feel safe to go upstairs. ADL-Prior Level of Function SCALE: Activities may be completed with or without assistive devices. 0-[id number] completes the activity by him/herself with no assistance from a helper. 5-Set-up or Clean-up Assistance-helper sets up or cleans up; patient completes activity. [place] assists only prior to or following the activity. 4-Supervision or Touching Assistance-helper provides verbal cues and/or touching/steadying and/or contact guard assistance as patient completes activity. Assistance may be provided throughout the activity or intermittently. 3-Partial/Moderate Assistance-helper does LESS THAN HALF the effort. [place] lifts, holds or supports trunk or limbs, but provides less than half the effort. 2-Substantial/Maximal Assistance-helper does MORE THAN HALF the effort. [place] lifts or holds trunk or limbs and provides more than half the effort. 2-Zxskdrpzr-wuugeo does ALL the effort. Patient does none of the effort to complete the activity. Or, the assistance of 2 or more helpers is required for the patient to complete the activity. If activity was not attempted, code reason: 7-Patient Refused. 9-Not Applicable-not attempted and the patient did not perform the activity before the current illness, exacerbation or injury. 10-Not Attempted due to Environmental Limitations-(lack of equipment, weather restraints, etc.). 88-Not Attempted due to Medical Conditions or Safety Concerns. ADL PLOF Comments Pt reports IND with ADLS and functional mobility at PLOF, no AD. Self Care: Independent Functional Cognition: Independent DME/Equipment: Tub/Shower OT Current Status Subjective Pt agreeable to OT evaluation and tx. Reports some vision changes since CVA, has more blurry vision and decreased depth perception. Mental Status/Objective Patient Orientation: Person, Place, Time, Situation Current Glasses/Contacts: No Hearing Aids: No Dentures/Partials: No Hand Dominance: Right Upper Extremity ROM WFL, BUE shoulder flexion to approx 120 degrees, equal bilaterally. Upper Extremity Coordination WFL Upper Extremity Sensation WFL, no tingling/numbness reported Upper Extremity Strength Grossly 3+/5, equal bilaterally. ADL-Treatment Eating (QC): 6 (Per pt report, able to cut food and open containers. Some difficulty with depth perception, but still able to feed without assist) Oral Hygiene (QC): 6 (IND standing at sink.) Shower/Bathe Self (QC): 5 (set up to cover IV. Pt completed shower 100% standing.) Upper Body Dressing (QC): 4 (SBA, VCs for orientation of bra and shirt due to visual deficit.) Lower Body Dressing (QC): 4 (VC to sit down while threading feet for safety.) On/Off Footwear (QC): 6 Toileting Hygiene (QC): 6 Other Treatments OT evaluation complete. OT/PT cotreat due to skill of 2 clinicians required which a vocational rehabilitation consultant could not perform in order to coordinate UE/LEs, decrease fall risk, and focus on higher level balance tasks. OT focused on UE placement, cues for sequencing and safety and ADLS, PT focused on LE placement, gross overall movement, transfers and mobility. Pt completed functional mobility and transfers including car transfer, bed mobility, stairs, ambulation with walker and without AD. Pt returned to her room, completed showering, dressing and grooming tasks. Pt did not exhibit and deficits in sequencing or processing of tasks, but required VCS with UE dressing which pt associates with visual deficit and difficulty telling front from back of shirt/bra. Post tx, pt seated EOB, call light in reach and all needs met. Pt instructed to use call light when she needs to use bathroom or transfer, and not to complete by herself, she verbalized understanding. Pt IND with functional mobility and transfers, with and without AD. on [place] balance assessment. SBA for 12 steps. IND with picking up object off of floor without ammunition supervisor. Education OT Patient Education: Correct positioning, Energy conservation, Modified ADL techniques, Progress toward Goal/Update tx plan, Purpose of tx/functional activities, Rehab process Teaching Recipient: Patient Teaching Methods: Discussion Response to Teaching: Verbalize Understanding BIMS CAM BIMS Expression of Ideas and Wants: Without Difficulty Understanding Verbal Content: Understands Brief Interview/Mental Status: Yes IRF MARCELLO BIMS: IRF MARCELLO BIMS Response (Comments) Value Repitition of Three Words Three 3 Recalls Socks Yes, No Cue Required 2 Recalls Blue Yes, No Cue Required 2 Recalls Bed No, Could Not Recall 0 Year Correct 3 Month Accurate Within 5 Days 2 Day Correct 1 Total 13 [address] Staff Asses. Mental St[address] No Notes: Pt feels as though her cognition, memory, and recall are at her PLOF. She states some difficulty with memory prior to CVA. CAM Mental Status Change/Baseline: 0 Inattention: 0 Disorganized thinkin Altered level of consciousness: 0 OT Professor Of Sociology Goals Professor Of Sociology Goals Time Frame: Jul 08, 2022 Eating (QC): 6 Oral Hygiene (QC): 6 Toileting Hygiene (QC): 6 Shower/Bathe Self (QC): 6 Upper Body Dressing (QC): 6 Lower Body Dressing (QC): 6 On/Off Footwear (QC): 6 Additional Goals: 1-Demonstrate ADL Tasks, 2-Verbalize Understanding, 3- ImproveStrength/Kain 1=Demonstrate adherence to instructed precautions during ADL tasks. 2=Patient will verbalize/demonstrate understanding of assistive devices/modifications for ADL. 3=Patient will improve strength/tolerance for activity to enable patient to perform ADL's. OT Education/Plan Problem List/Assessment Assessment: Decreased Activ Tolerance, Decreased UE Strength, Impaired I ADL's, Impaired Self-Care Skills, Restricted Funct UE ROM Discharge Recommendations Plan/Recommendations: Continue POC Treatment Plan/Plan of Care Patient would benefit from OT for education, treatment and training to promote independence in ADL's, mobility, safety and/or upper extremity function for ADL's. Plan of Care: ADL Retraining, Functional Mobility, Group Exercise/Act as Ind, UE Funct Exercise/Act, Visual/Perceptual Retrain Treatment Duration: Jul 08, 2022 Frequency: At least 5 of 7 days/Wk (IRF) Estimated Hrs Per Day: 1.5 hours per day Agreement: Yes Rehab Potential: Good Time Start Time: 10:55 Stop Time: 12:00 DATE: Jun 22, 2022 Total Time Billed (hr/min): 65 Billed Treatment Time OT eval [id number], cotreat [id number] 1, EVL (10'), ADL 2 (35'), FA (20') WINSOME OROZCO OT Jun 22, 2022 11:57
[2022-06-22] MEDS: hydrALAZINE (APRESOLINE) 25 MG TAB PO SCH ×2 (12:30→20:50)
[2022-06-22] MEDS: ENOXAPARIN 40 MG/0.4 ML (LOVENOX) SYR SC SCH (12:31)
--- NOTE | 2022-06-22 13:27 | Speech Therapy Progress Note ---
Therapy Progress Note Speech pathology received a consultation for cognitive linguistic evaluation. At this time, the ARU team has not identified specific areas appropriate for ST and has requested ST defer assessment. Please re-consult speech pathology if needs arise. Thank you. ОЛЬГА HAMPTON Jun 22, 2022 13:27
--- NOTE | 2022-06-22 14:26 | Therapy Group Daily Note ---
Therapy Daily Group Note Patient Education Topic Home Safety Exercises LE Seated Exercise, UE Exercise Session Ratio (pt:therapist): 4:1 Goal of Session: Home Safety Strategies, UE/LE Strengthing, Use of Adaptive Equipment Goal Met for this Session: Yes Pt Benefit of Group: Contributions to Others, F/U Use of Strategies @Home, Increased Functional Safety, Increased Functional Strength, Improved Cognition, Recognition of Peers, Socialization Other/Notes Pt ambulated without AD to [facility] for OT/PT group. Group consisted of introductions (name, place living, life hack/trick), socialization, education on tips/tricks to make IADLs/ADLs easier and B UE/LE seated exercises. Pt introduced self appropriately and actively listened to peers. Pt acknowledged understanding of educational topic by giving own strategies and ideas. Pt able to complete UE/LE seated exercises without difficulty. After session, pt sitting in [facility] socializing with peer. All needs met. Start Time: 13:00 Stop Time: 14:00 Total Billed Treatment Time: 60 Total Billed Treatment 1-GRP HAILY LORD Jun 22, 2022 14:26
[2022-06-22 19:24] VITALS: BP 177/83
[2022-06-22] MEDS: SENNOSIDES 8.6 MG (SENOKOT) TAB PO SCH (20:39)
[2022-06-22] MEDS: polyethylene glycoL POWDER 17 GM (MIRALAX) PACK PO SCH (20:39)
[2022-06-22] MEDS: DOCUSATE SODIUM 100 MG (COLACE) CAP PO SCH (20:56)
[2022-06-22] MEDS: SENNA W/DOCUSATE (SENOKOT S) TABLET PO SCH (20:57)
[2022-06-22] MEDS ORDERED: DOCUSATE SODIUM 100 MG (COLACE) CAP PO SCH (21:00)
[2022-06-23 05:21] LABS: BASOPHILS % (AUTO) 1 % (0-10); EOSINOPHILS # (AUTO) 0.3 10^3/uL (0.0-0.3); EOSINOPHILS % (AUTO) 6 % (0-10); HEMATOCRIT 49 % (35-52); HEMOGLOBIN 16.7 g/dL (11.5-16.0); LYMPHOCYTES # (AUTO) 1.6 10^3/uL (1.0-4.0); LYMPHOCYTES % (AUTO) 38 % (12-44); MEAN CORPUSCULAR HEMOGLOBIN 31 pg (25-34); MEAN CORPUSCULAR HGB CONC 34 g/dL (32-36); MEAN CORPUSCULAR VOLUME 90 fL (80-99); MEAN PLATELET VOLUME 9.5 fL (9.0-12.2); MONOCYTES # (AUTO) 0.5 10^3/uL (0.0-1.0); MONOCYTES % (AUTO) 12 % (0-12); NEUTROPHILS # (AUTO) 1.8 10^3/uL (1.8-7.8); NEUTROPHILS % (AUTO) 43 % (42-75); PLATELET COUNT 201 10^3/uL (130-400); WHITE BLOOD COUNT 4.3 10^3/uL (4.3-11.0)
--- NOTE | 2022-06-23 05:27 | Individualized Plan of Care ---
Individualized Plan of Care Rehab Nursing IPOC Order Admission Date Jun 22, 2022 at 10:45 Current Orders Orders Admission Arrival Bed Request (06/22/22 10:45) Admission Order(Inpt,Obs,Sdc) (06/22/22 11:42) Vital Signs: Per Unit Policy ( 08,16,00 (06/22/22 11:42) Elvin Holland 09,21 (06/22/22 11:42) Sequential Compression Device (06/22/22 11:42) Senior Asp Net Developer-Inpt Rehab Con (06/22/22 11:42) Rehab Nursing Orders-Ipoc (06/22/22 11:42) Physical Therapy Rehab Orders (06/22/22 11:42) Occupational Therapy Rehab Ord (06/22/22 11:42) Speech Therapy Rehab Orders (06/22/22 11:42) Cbc With Automated Diff (06/23/22 06:00) Comprehensive Metabolic Panel (06/23/22 06:00) Precautions (Aru) (06/22/22 11:42) Weekly Weight WEEK (06/22/22 11:42) Rehab-Intensity Of Therapy (06/22/22 11:42) Initiate Admission Nursing Pro .admission (06/22/22 11:42) Alprazolam Tablet (Xanax Tablet) (06/22/22 11:45) Calcium Carbonate Chew Tablet (Antacid C (06/22/22 11:45) Diphenhydramine Tablet (Benadryl Tablet) (06/22/22 11:45) Docusate Sodium Capsule (Colace Capsule) (06/22/22 21:00) Docusate Sodium Capsule (Colace Capsule) (06/22/22 11:45) Bisacodyl Suppository (Dulcolax Supposit (06/22/22 11:45) Lactulose Oral Solution (Enulose Oral So (06/22/22 11:45) Na Phos/Na Biphos Enema (Fleet Enema Yo (06/22/22 11:45) Guaifenesin/Codeine Syrup (Robitussin Ac (06/22/22 11:45) Loperamide Tablet (Imodium Tablet) (06/22/22 11:45) Melatonin Tablet (Melatonin Tablet) (06/22/22 11:45) Polyethylene Glycol Powder Pkt (Miralax (06/22/22 21:00) Ondansetron Oral Dissolve Tab (Zofran (06/22/22 11:45) Senna S Tablet (Senokot S Tablet) (06/22/22 21:00) Acetaminophen Tablet/Caplet (Tylenol T (06/22/22 11:45) Initiate Admission Nursing Pro .admission (06/22/22 11:42) Elvin Holland (06/22/22 11:43) Heart Healthy (06/22/22 Lunch) Aspirin Chewable Tablet (Baby Aspirin Ch (06/23/22 09:00) Atorvastatin Tablet (Lipitor Tablet) (06/22/22 21:00) Diphenhydramine Injection (Benadryl Inje (06/22/22 11:45) Diphenhydramine Tablet (Benadryl Tablet) (06/22/22 11:45) Docusate Sodium Capsule (Colace Capsule) (06/22/22 21:00) Bisacodyl Suppository (Dulcolax Supposit (06/22/22 11:45) Enoxaparin Injection (Lovenox Injection) (06/22/22 11:45) Lactulose Oral Solution (Enulose Oral So (06/22/22 11:45) Lorazepam Tablet (Ativan Tablet) (06/22/22 11:45) Melatonin Tablet (Melatonin Tablet) (06/22/22 11:45) Magnesium Hydroxide Oral Susp (Mom Oral (06/22/22 11:45) Polyethylene Glycol Powder Pkt (Miralax (06/22/22 11:45) Antacid Suspension (Mylanta Suspension (06/22/22 11:45) Nicotine Patch (Nicoderm Patch) (06/23/22 09:00) Patch Removal (Patch Removal) (06/23/22 08:59) Sennosides Tablet (Senokot Tablet) (06/22/22 21:00) Calcium Carbonate Chew Tablet (Antacid C (06/22/22 11:45) Acetaminophen Tablet/Caplet (Tylenol T (06/22/22 11:45) Ondansetron Injection (Zofran Injectio (06/22/22 11:45) Ondansetron Oral Dissolve Tab (Zofran (06/22/22 11:45) Amlodipine Tablet (Norvasc Tablet) (06/23/22 09:00) Clonidine Tablet (Catapres Tablet) (06/22/22 11:45) Hydralazine Tablet (Apresoline Tablet) (06/22/22 13:00) Oxycodone Immediate Rel Tablet (Oxyir Ta (06/22/22 11:45) Amlodipine Tablet (Norvasc Tablet) (06/23/22 09:00) Hydralazine Tablet (Apresoline Tablet) (06/23/22 09:00) Losartan Tablet (Cozaar Tablet) (06/23/22 09:00) Patient Visit (06/22/22 ) Pt Eval Low Complexity (06/22/22 ) Functional Activities, Ea 15 (06/22/22 ) Patient Visit (06/23/22 ) Speech Sound Lang Comp (06/23/22 ) Treat. Speech/Lang/Voice (06/23/22 ) Rehab Nursing Orders: Ongoing Assess. of Cognitive Status, Ongoing Assess. of Function Status, Bladder Management, Bladder Scan, Bladder Training, Bowel Management, Bowel Training, Disease Management & Educaiton, DVT Prophylaxis, Fall Prevention, Fluid/Electrolyte/Nutrition Mgmt, Infection Prevention, Medication Management & Education, Management of Risks & Complications, Management of Skin Intergrity, Nutrition Management, Pain Management, Patient/Family Support, Safety Management Intensity of Therapy to be met Patient to be seen: Min.3h per day/5 of 7d PT IPOC Problem List: Activity Tolerance, Functional Strength, Safety, Balance, Gait, Transfer, Bed Mobility, ROM Treatment Plan: Continue Plan of Care Bed Mobility, Education, Functional Activity Kain, Functional Strength, Group Therapy, Gait, Safety, Therapeutic Exercise, Transfers Treatment Duration: Jul 06, 2022 Frequency: At least 5 of 7 days/Wk (IRF) Estimated Hrs Per Day: 1.5 hours per day OT IPOC Problems: Decreased Activ Tolerance, Decreased UE Strength, Impaired I ADL's, Impaired Self-Care Skills, Restricted Funct UE ROM OT Treatment, Training and Edu: Yes Plan of Care: ADL Retraining, Functional Mobility, Group Exercise/Act as Ind, UE Funct Exercise/Act, Visual/Perceptual Retrain Treatment Duration: Jul 08, 2022 Frequency: At least 5 of 7 days/Wk (IRF) Estimated Hrs Per Day: 1.[address] IPOC Speech Therapy Treatment Plan: Continue Plan of Care Treatment Duration: Jun 23, 2022 Frequency: Modified Program (IRF) Estimated Hrs Per Day: Other Senior Asp Net Developer/Case Mgmt Senior Asp Net Developer/Case Managemen: Discharge Planning Dietitian/Order Entry Dietitian/Order Entry to monitor nutritional status and make changes and/or recommendations as needed and work with speech pathology on dietary upgrades as the occur. Physician IPOC Medical Issues being managed closely and that require the 24 hour availability of a physician: Recent CVA with h/o meth use and HTN OOC will require close monitoring to decrease HTN urgency and extension of CVA Medical Issues: Bowel/Bladder Function, DVT Prophylaxis, Falls Precautions, Fluid/Electrolyte/Nutrition Balance, Infection Protection, Pain Management Brief Synthesis of Preadmission Screen, Post-Admission Evaluation, and Therapy Evaluations: PT OT ST will require aggressive therapies in order to regain function lost with CVA while maintaining frequent BP checks during therapy Medical Prognosis: Good Anticipated Length of Stay: 7 days ROSIE MACDONALD DO Jun 23, 2022 05:27
--- NOTE | 2022-06-23 05:27 | PM&R Progress Note ---
Subjective HPI/CC On Admission Date Seen by Provider: Jun 23, 2022 Time Seen by Provider: 12:30 Subjective/Events-last exam 06/23/2022: Much improved status No pain reported Improved cognition Reviewed labs Review of Systems General: Fatigue, Malaise Neurological: Confusion Objective Exam Vital Signs Vital Signs Date Time Temp Pulse Resp B/P (MAP) Pulse Ox O2 Delivery O2 Flow Rate FiO2 06/23/22 20:30 Room Air 06/23/22 19:55 36.8 90 16 181/85 (117) 95 Capillary Refill : General Appearance: No Apparent Distress, WD/WN HEENT: PERRL/EOMI, TMs Normal, Normal ENT Inspection, Pharynx Normal Neck: Full Range of Motion, Normal Inspection, Non Tender, Supple, Carotid Bruit Respiratory: Chest Non Tender, Lungs Clear, Normal Breath Sounds, No Accessory Muscle Use, No Respiratory Distress Cardiovascular: Regular Rate, Rhythm, No Edema, No Gallop, No JVD, No Murmur, Normal Peripheral Pulses Gastrointestinal: Normal Bowel Sounds, No Organomegaly, No Pulsatile Mass, Non Tender, Soft Back: Normal Inspection, No CVA Tenderness, No Vertebral Tenderness Extremity: Normal Capillary Refill, Normal Inspection, Normal Range of Motion, Non Tender, No Calf Tenderness, No Pedal Edema Neurologic/Psychiatric: Alert, Oriented x3, Normal Mood/Affect, sales operations II-XII Norm as Tested, Motor Weakness (generalized), Other (poor recall) Skin: Normal Color, Warm/Dry Lymphatic: No Adenopathy Results/Procedures Lab Laboratory Tests 06/23/22 05:12 Patient resulted labs reviewed. FIM Transfers Therapy Code Descriptions/Definitions Functional [place] Measure: 0=Not Assessed/NA 4=Minimal Assistance 1=Total Assistance 5=Supervision or Setup 2=Maximal Assistance 6=Modified [place] 3=Moderate Assistance 7=Complete IndependenceSCALE: Activities may be completed with or without assistive devices. 2-Ffbceaujhj-arpfsep completes the activity by him/herself with no assistance from a helper. 5-Set-up or Clean-up Assistance-helper sets up or cleans up; patient completes activity. Ada assists only prior to or following the activity. 4-Supervision or Touching Assistance-helper provides verbal cues and/or touching/steadying and/or contact guard assistance as patient completes activity. Assistance may be provided throughout the activity or intermittently. 3-Partial/Moderate Assistance-helper does LESS THAN HALF the effort. Ada lifts, holds or supports trunk or limbs, but provides less than half the effort. 2-Substantial/Maximal Assistance-helper does MORE THAN HALF the effort. Ada lifts or holds trunk or limbs and provides more than half the effort. 0-Jjexirqgp-xuqelr does ALL the effort. Patient does none of the effort to complete the activity. Or, the assistance of 2 or more helpers is required for the patient to complete the activity. If activity was not attempted, code reason: 7-Patient Refused. 9-Not Applicable-not attempted and the patient did not perform the activity before the current illness, exacerbation or injury. 10-Not Attempted due to Environmental Limitations-(lack of equipment, weather restraints, etc.). 88-Not Attempted due to Medical Conditions or Safety Concerns. Roll Left to Right (QC): 6 Sit to Lying (QC): 6 Sit to Stand (QC): 6 Chair/Lri-qn-Drdyu Xfer(QC): 6 Car Transfer (QC): 6 Gait Training Does the Patient Walk?: Yes Walk 10 feet (QC): 6 Walk 50 ft with 2 Turns(QC): 6 Walk 150 ft (QC): 6 Walking 10ft/uneven surface-QC: 6 Gait Assistive Device: None Wheelchair Training Does the Pt Use a Wheelchair?: No Wheel 50 ft with 2 turns (QC): 9 Wheel 150 ft (QC): 9 Stair Training #of Steps: 12 1 Step (curb) (QC): 4 4 Steps (QC): 4 12 Steps (QC): 4 Balance Picking up an Object (QC): 6 (no registrar museum used) ADL-Treatment Eating (QC): 6 (Per pt report, able to cut food and open containers. Some difficulty with depth perception, but still able to feed without assist) Oral Hygiene (QC): 6 (IND standing at sink.) Shower/Bathe Self (QC): 5 (set up to cover IV. Pt completed shower 100% standing.) Upper Body Dressing (QC): 4 (SBA, VCs for orientation of bra and shirt due to visual deficit.) Lower Body Dressing (QC): 4 (VC to sit down while threading feet for safety.) On/Off Footwear (QC): 6 Toileting Hygiene (QC): 6 Assessment/Plan Assessment and Plan Assess & Plan/Chief Complaint Assessment: CVA Poor recall residual Meth use HTN OOC HLP Plan: ARU protocol Monitor closely BP management 06/23/2022: Continue aggressive therapy (1) CVA (cerebral vascular accident) Status: Acute (2) Disoriented Status: Acute (3) Methamphetamine abuse Status: Acute (4) Left-sided weakness Status: Acute (5) Malignant hypertension Status: Acute ROSIE MACDONALD DO Jun 23, 2022 05:27
[2022-06-23 05:36] LABS: ALBUMIN 3.9 GM/DL (3.2-4.5); POTASSIUM 4.1 MMOL/L (3.6-5.0)
[2022-06-23 05:38] LABS: CALCIUM 9.7 MG/DL (8.5-10.1)
[2022-06-23 05:39] LABS: TOTAL PROTEIN 7.4 GM/DL (6.4-8.2)
[2022-06-23 05:41] LABS: BILIRUBIN,TOTAL 0.7 MG/DL (0.1-1.0)
[2022-06-23 05:42] LABS: CREATININE SERUM 0.81 MG/DL (0.60-1.30)
[2022-06-23 07:38] VITALS: BP 149/84
[2022-06-23] MEDS: LOSARTAN 100 MG (COZAAR) TABLET PO SCH (08:54)
[2022-06-23] MEDS: ASPIRIN 81 MG CHEW (CHILDREN'S ASA) PO SCH (08:55)
[2022-06-23] MEDS: amLODIPine 5 MG (NORVASC) TAB PO SCH (08:55)
[2022-06-23] MEDS: hydrALAZINE (APRESOLINE) 25 MG TAB PO SCH ×3 (08:55→19:56)
[2022-06-23] MEDS: NICOTINE 21 MG (NICODERM) PATCH TD SCH (08:56)
[2022-06-23] MEDS: SENNOSIDES 8.6 MG (SENOKOT) TAB PO SCH ×2 (08:56→19:51)
[2022-06-23] MEDS: polyethylene glycoL POWDER 17 GM (MIRALAX) PACK PO SCH ×2 (08:56→19:51)
[2022-06-23] MEDS: DOCUSATE SODIUM 100 MG (COLACE) CAP PO SCH ×2 (08:56→19:51)
[2022-06-23] MEDS: SENNA W/DOCUSATE (SENOKOT S) TABLET PO SCH ×2 (08:56→19:51)
[2022-06-23] MEDS: NICOTINE PATCH REMOVAL TP SCH (08:57)
[2022-06-23] MEDS ORDERED: amLODIPine 5 MG (NORVASC) TAB PO SCH (09:00)
--- NOTE | 2022-06-23 09:49 | Occupational Ther Daily Note ---
OT Current Status-Daily Note Subjective Pt in bed, agreeable to OT Tx. Pt states main concern with going home is her vision, but understands she is going to follow up with an eye doctor after discharge. Pt's sister also plans to stay with pt for a while. ADL-Treatment Therapy Code Descriptions/Definitions Functional [place] Measure: 0=Not Assessed/NA 4=Minimal Assistance 1=Total Assistance 5=Supervision or Setup 2=Maximal Assistance 6=Modified [place] 3=Moderate Assistance 7=Complete IndependenceSCALE: Activities may be completed with or without assistive devices. 8-Aajupbbxrr-ajcdgee completes the activity by him/herself with no assistance from a helper. 5-Set-up or Clean-up Assistance-helper sets up or cleans up; patient completes activity. [place] assists only prior to or following the activity. 4-Supervision or Touching Assistance-helper provides verbal cues and/or touching/steadying and/or contact guard assistance as patient completes activity. Assistance may be provided throughout the activity or intermittently. 3-Partial/Moderate Assistance-helper does LESS THAN HALF the effort. [place]tt lif ts, holds or supports trunk or limbs, but provides less than half the effort. 2-Substantial/Maximal Assistance-helper does MORE THAN HALF the effort. [place] lifts or holds trunk or limbs and provides more than half the effort. 7-Artgttrke-bqaltm does ALL the effort. Patient does none of the effort to complete the activity. Or, the assistance of 2 or more helpers is required for the patient to complete the activity. If activity was not attempted, code reason: 7-Patient Refused. 9-Not Applicable-not attempted and the patient did not perform the activity before the current illness, exacerbation or injury. 10-Not Attempted due to Environmental Limitations-(lack of equipment, weather restraints, etc.). 88-Not Attempted due to Medical Conditions or Safety Concerns. Eating (QC): 6 Oral Hygiene (QC): 6 Other Treatment Pt in bed, agreeable to OT Tx. Pt transferred into bathroom to stand at sink, IND, no AD. Pt completed grooming tasks, independently. Pt then performed functional mobility to therapy gym, no AD, IND. OT tx focused on visual scanning, UE strength, dynamic standing balance, and activity tolerance. Pt states L eye is blurry, R eye is pretty clear. Pt able to stand at white board, erasing letters in alphabetical order, scanning board and reaching in multiple planes. Pt able to locate and erase all letters, 1 mistake. OT educated pt on various low vision strategies and adaptations, including increased lighting, contrasting colors with task, and using puff paint on appliances and puff paint on clothing where tags are hard to see. Pt verbalized understanding. Pt stood at white board, sorting small suction cups by color, no errors. Pt completed arm bike, x10 mins, 15-20 Watt resistance, 2 rest breaks. Pt returned to her room, no AD, IND, transferring to EOB. Post tx, pt EOB, call light in reach and all needs met, bed alarm activated. Education OT Patient Education: Correct positioning, Energy conservation, Modified ADL techniques, Progress toward Goal/Update tx plan, Purpose of tx/functional activities, Rehab process Teaching Recipient: Patient Teaching Methods: Discussion Response to Teaching: Verbalize Understanding OT Salvage Engineering Technician Goals Mcc Goals Time Frame: Jul 08, 2022 Acute change in mental status: 0 Inattention: 0 Disorganized thinkin Altered level of consciousness: 0 Eating (QC): 6 Oral Hygiene (QC): 6 Toileting Hygiene (QC): 6 Shower/Bathe Self (QC): 6 Upper Body Dressing (QC): 6 Lower Body Dressing (QC): 6 On/Off Footwear (QC): 6 Additional Goals: 1-Demonstrate ADL Tasks, 2-Verbalize Understanding, 3- ImproveStrength/Kain 1=Demonstrate adherence to instructed precautions during ADL tasks. 2=Patient will verbalize/demonstrate understanding of assistive pool jackson/modifications for ADL. 3=Patient will improve strength/tolerance for activity to enable patient to perform ADL's. OT Education/Plan Problem List/Assessment Assessment: Decreased Activ Tolerance, Decreased UE Strength, Impaired I ADL's, Visual-Perceptual Deficit Discharge Recommendations Plan/Recommendations: Continue POC Treatment Plan/Plan of Care Patient would benefit from OT for education, treatment and training to promote independence in ADL's, mobility, safety and/or upper extremity function for ADL's. Plan of Care: ADL Retraining, Functional Mobility, Group Exercise/Act as Ind, UE Funct Exercise/Act, Visual/Perceptual Retrain Treatment Duration: Jul 08, 2022 Frequency: At least 5 of 7 days/Wk (IRF) Estimated Hrs Per Day: 1.5 hours per day Agreement: Yes Rehab Potential: Good Time Start Time: 09:00 Stop Time: 10:00 DATE: Jun 23, 2022 Total Time Billed (hr/min): 60 Billed Treatment Time 1, ADL (15'), EX (15'), FA 2 (30') WINSOME OROZCO OT Jun 23, 2022 09:48
--- NOTE | 2022-06-23 10:41 | ST Cognitive Linguistic Eval ---
Speech Evaluation-General Medical Diagnosis CVA Onset Date: Jun 18, 2022 Precautions Precautions/Isolations: Standard Precautions Referral Referring Physician: Dr. Racheal Kenney Reason for Referral: Evaluation/Treatment Medical History Pertinent Medical History: CVA, HTN, Smoking Reviewed History: Yes Social History Home: [facility] ([facility]) Current Living Status: Alone Speech PLF-Current Status Prior Level of Function The clinician completed a discussion with the patient regarding her prior level of function or current cognitive, language, speech, or oropharyngeal swallowing concerns. The patient stated, "I am pretty much back." The clinician discussed specific aspects and requirements of prior responsibilities (the patinet's occupation) and possible barriers the patient may have to a safe return. The patient denied difficulties with speech, language, cognition, or swallowing at this time. The patient consumed multiple pills with thin liquid via straw (RN administered) without s/s of suspected aspiration. Per patient, "The only thing I am concerned about is how I keep this up at home." The patient was referencing her nicotine patch and desire to continue tobacco cessation following discharge. Subjective The patient was seated upright in bed, sleeping, upon entrance to her room by the clinician. The patient woke easily with a verbal greeting, repositioned herself in bed, and was agreeable to participation in the cognitive linguistic evaluation. The patient denied any questions or concerns for the clinician at this time stating, "I'm just ready to go home." The patient remained pleasant and participatory with all items presented by the clinician. Language Eval: Auditory Comprehends Simple Yes/No Ques: Functional Indent/Objects Multiple Gould: Functional Follows 1-Step Commands: Functional Follows General Conversations: Functional Language Eval: Verbal Language Completes Spontaneous Greeting: Functional Produces Auto, Serial Info: Functional Word Finding: Functional Requests Basic Needs: Functional States Basic Personal Info: Functional Expresses Complex Ideas: Functional Language Evaluation: Reading Comprehends Single Nouns: Functional Follows Simple Written Direct: Functional The patient reports "fuzziness" in the left eye, however, continues to complete tasks appropriately with high accuracy at this time. The patient's vision may result in necessity for increased motor planning time in novel situations. Language Evaluation: Writing Writes to Simple Dictation: Functional Cognitive Patient Orientation The patient was independently oriented to self, location, city, rationale for hospitalization, month, day of the week, and year. The patient stated, "I was at home and acting all weird. I couldn't get my pants on right and stuff. They called my daughter and then I'm here." Objective Cognitive Domain Attention: WNL Memory: WNL (The patient reported she struggled with her memory at baseline. Regardless of report, the patient completed each memory exercise accurately. The patient was able to complete functional recall of hospitalization stating, "Yeah, they are trying to watch my blood pressure. It's been on the higher end since I've been here.") Problem Solving: Functional (The patient initially struggled with completion of subtraction without the use of pen and paper. The patient independently requested calcuation tools and completed the task with accuracy following.) Executive Functions: WNL (Due to the patient's vision, the patient was unable to complete trail-making exercise. The clinician modified the exercise, having the patient complete the exercise verbally which would combine executive function and memory increasing the mental load on the patient. The sophianet completed the trail-making exercise verbally with 100% accuracy. ) Composite Severity Rating: WNL (Baseline per patient.) Clock Drawing Severity Rating: WNL (Regardless of left visual decline, the patient completed clock drawing with 100% accuracy. ) The patient was provided additional cognitive tasks to assess for overall problem solving, executive function and safety. 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 The patient denied medication management for her occupation, however, stated she would be responsible for own medication management. Due to this, the clinician provided education regarding the use of a pill box and medication management questions were provided ("When would you take this medication if you were asked to take one pill every other day?" "What time of day would you take a medication you were prescribed to take one time per day in the evening?"). The patient was able to provide accurate responses to each medication question provided by the clinician. 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 Due to this, the clinician asked the patient to verbally provide directions from her home to the grocery store she most frequently visits. The patient provided the clinician with her accurate home address ([address] [place] [address]) and states she shops at [employer]. The patient provided two options for directions to [employer], providing a second option/route to the clinician stating, "Well, [place] is closed right now so you will need to head down to [place]." Due to the patient's visual changes, the clinician recommends follow up with optometry for driving safety. As the patient will return home, the clinician provided the patient with specific situational safety scenarios. Per patient, "Well my sister and daughter will be with me at first but okay." The patient was able to provide accurate directions to in-home safety problem solving scenarios including an emergency situation, emergency contact information (911), a fire, and a wound with excessive bleeding. The patient was encouraged to keep her cellphone with her throughout the day so she could more easily contact emergency personnel, if necessary. As the RN entered the room, the patient participated in an appropriate conversational exchange, asking questions related to her care and recalling specific medical recommendations provided at an earlier time of her hospitalization. Objective Formal/Standardized Tests [facility] Mental Status Exam (UMS) Results The patient demonstrated a result of +27/30 on the SLUMS correlating to "normal" neurocognitive function per scoring rubric. The patient was reduced two points for requiring pen and paper for the subtraction task and was reduced one point for providing twelve animals (WNL=15) during the generative naming task. Oral Motor/Speech Production The patient does not display dysarthria or apraxia of speech at this time. The patient is 100% intelligible in known and unknown contexts. Impression At this time, the patient is displaying normative neurocognitive skills per the SLUMS protocol (+27/30) and reports she is at baseline cognitive function. Additionally, the patient is providing accurate functional recall of prior medical recommendations, events, and care. The patient completed executive function tasks with high accuracy (stating alternate solutions independently) and provided appropriate solutions to in-home emergency/safety situations. The clinician discussed the patient with the treating RN and treating OT. The treating RN stated the patient displayed difficulty with appropriate brief placement the day prior, however, has not displayed any additional cognitive concerns and was able to place the brief appropriate following repetition of the instructions. The OT stated the patient displayed one occasion of directional difficulty placing her shirt the day prior, however, feels the difficulty was related to the patient's visual decline. The clinician and patient were unable to identify specific areas of concern to warrant skilled speech pathology intervention. However, if treating disciplines encounter specific areas of difficulty, speech pathology would be able to reinforce sequencing patterns if necessary. Speech pathology has continued to request ongoing communication from treating disciplines to identify any additional areas of concerns. Speech pathology to sign off at this time. Speech-Plan Treatment Plan Speech Therapy Treatment Plan: Discontinue ST Treatment Duration: Jun 23, 2022 Frequency: 1 time per week Estimated Hrs Per Day: .5 hour per day Rehab Potential: Good Pt/Family Agrees to Plan: Yes Safety Risks/Education Teaching Recipient: Patient Teaching Methods: Discussion Response to Teaching: Verbalize Understanding Time Speech Therapy Time In: 08:30 Speech Therapy Time Out: 09:00 DATE: Jun 23, 2022 Total Billed Time: 30 Billed Treatment Time 1, MIGUE TURNER [facility] ST Jun 23, 2022 10:41
--- NOTE | 2022-06-23 11:02 | Physical Therapy Daily Note ---
PT Daily Note-Current Subjective Pt. agrees to Rx. Pt. as well as her visitor inquire as to when pt. may be discharged. No pain c/o Pain Location: No Pain Reported Section J - Health Conditions 1. Rarely or not at all 2. Occasionally 3. Frequently 4. Almost constantly 8. Unable to answer Pain Effect on Sleep: 1 Pain Interference with Therapy: 1 Pain Interference w/Day-to-Day: 1 Mental Status Patient Orientation: Normal For Age Transfers SCALE: Activities may be completed with or without assistive devices. 5-Kdpekjprxa-dbuspar completes the activity by him/herself with no assistance from a helper. 5-Set-up or Clean-up Assistance-helper sets up or cleans up; patient completes activity. [place] assists only prior to or following the activity. 4-Supervision or Touching Assistance-helper provides verbal cues and/or touching/steadying and/or contact guard assistance as patient completes activity. Assistance may be provided throughout the activity or intermittently. 3-Partial/Moderate Assistance-helper does LESS THAN HALF the effort. [place] lif ts, holds or supports trunk or limbs, but provides less than half the effort. 2-Substantial/Maximal Assistance-helper does MORE THAN HALF the effort. [place] lifts or holds trunk or limbs and provides more than half the effort. 6-Qjisgehff-wkoebq does ALL the effort. Patient does none of the effort to complete the activity. Or, the assistance of 2 or more helpers is required for the patient to complete the activity. If activity was not attempted, code reason: 7-Patient Refused. 9-Not Applicable-not attempted and the patient did not perform the activity before the current illness, exacerbation or injury. 10-Not Attempted due to Environmental Limitations-(lack of equipment, weather restraints, etc.). 88-Not Attempted due to Medical Conditions or Safety Concerns. Roll Left & Right (QC): 6 Sit to Lying (QC): 6 Lying to Sitting/Side of Bed(Q: 6 Sit to Stand (QC): 6 Chair/Cow-yr-Bxeav Xfer(QC): 6 floor TRF without support of chair or bed , coming up from prone to side lying to quadruped to tall kneeling to half kneel to stance SBA. Gait Training Does the Patient Walk?: Yes Walk 150 ft (QC): 6 Gait Persons Needed: 0 Gait Assistive Device: None 400ft no LOB with short step length and several turns Balance Special Test Comments heel toe rocks without assist of rail with LOB noted, difficulty with bilat DF balance in stance , needs to hold to rail, with retro gait pt. needs CGA with near LOB, pt recovering herself, side step left and right looking up at partner in dance fashion with near LOB in right side stepping Exercises Supine Ex: Bridging, Pelvic tilt, Rolling, Lower trunk rotation, Straight leg raise, Hip abd/add (clam shells and side abduction x 12) Supine Reps: 12 Treatments gait, balance challenges and therex, TRF challenges Assessment Current Status: Good Progress some LOB noted in standing therex without rail support, side step and retro gait near LOB PT Halfway Goals Halfway Goals PT Telecom Assistant Goals Time Frame: Jul 06, 2022 Roll Left & Right (QC): 6 Sit to Lying (QC): 6 Lying-Sitting on Side/Bed(QC): 6 Sit to Stand (QC): 6 Chair/One-xo-Jwszj Xfer(QC): 6 Toilet Transfer (QC): 6 Car Transfer (QC): 6 Does the Patient Walk: Yes Walk 10 feet (QC): 6 Walk 50ft with 2 Turns (QC): 6 Walk 150 ft (QC): 6 Walking 10ft on Uneven Surface: 6 1 Step (curb) (QC): 6 4 Steps (QC): 6 12 Steps (QC): 6 Picking up an Object (QC): 6 Wheel 50 feet with 2 turns (QC: 9 Wheel 150 feet: 9 PT Plan Treatment/Plan Treatment Plan: Continue Plan of Care Treatment Plan: Bed Mobility, Education, Functional Activity Kain, Functional Strength, Group Therapy, Gait, Safety, Therapeutic Exercise, Transfers Treatment Duration: Jul 06, 2022 Frequency: At least 5 of 7 days/Wk (IRF) Estimated Hrs Per Day: 1.5 hours per day Patient and/or Family Agrees t: Yes Safety Risks/Education Patient Education: Gait Training, Transfer Techniques, Disease Process, Safety Issues Teaching Recipient: Patient Teaching Methods: Demonstration, Discussion Response to Teaching: Verbalize Understanding, Return Demonstration, Reinforcement Needed Time Time In: 1000 Time Out: 1100 DATE: Jun 23, 2022 Total Billed Treatment Time: 60 Total Billed Treatment 1,EX25m,FA20, GT15m KAM SHER BRONZE PLATER Jun 23, 2022 11:02
[2022-06-23] MEDS: ENOXAPARIN 40 MG/0.4 ML (LOVENOX) SYR SC SCH (12:31)
[2022-06-23 12:32] VITALS: BP 112/84
--- NOTE | 2022-06-23 12:58 | Occupational Ther Daily Note ---
OT Current Status-Daily Note Subjective Pt in bed, agreeable to OT Tx. ADL-Treatment Therapy Code Descriptions/Definitions Functional [place] Measure: 0=Not Assessed/NA 4=Minimal Assistance 1=Total Assistance 5=Supervision or Setup 2=Maximal Assistance 6=Modified [place] 3=Moderate Assistance 7=Complete IndependenceSCALE: Activities may be completed with or without assistive devices. 2-Lixpdxouuf-hfgummm completes the activity by him/herself with no assistance from a helper. 5-Set-up or Clean-up Assistance-helper sets up or cleans up; patient completes activity. [place] assists only prior to or following the activity. 4-Supervision or Touching Assistance-helper provides verbal cues and/or touching/steadying and/or contact guard assistance as patient completes activity. Assistance may be provided throughout the activity or intermittently. 3-Partial/Moderate Assistance-helper does LESS THAN HALF the effort. [place] lifts, holds or supports trunk or limbs, but provides less than half the effort. 2-Substantial/Maximal Assistance-helper does MORE THAN HALF the effort. [place] lifts or holds trunk or limbs and provides more than half the effort. 5-Qimiqqxhq-dkyfqq does ALL the effort. Patient does none of the effort to complete the activity. Or, the assistance of 2 or more helpers is required for the patient to complete the activity. If activity was not attempted, code reason: 7-Patient Refused. 9-Not Applicable-not attempted and the patient did not perform the activity befo re the current illness, exacerbation or injury. 10-Not Attempted due to Environmental Limitations-(lack of equipment, weather re straints, etc.). 88-Not Attempted due to Medical Conditions or Safety Concerns. Toileting Hygiene (QC): 6 Toilet Transfer (QC): 6 Other Treatment Pt transferred supine to sit EOB independently. Pt transferred into bathroom and onto toilet without AD independently. Pt completed toileting and hand hygiene, IND. Pt returned to EOB. In order to increase visual scanning, pt provided with printed word search puzzles. Pt able to locate a few words prior to end of tx. Pt encouraged to complete puzzles throughout the day to work on vision. Pt had glasses on during tx, states she feels like they helped today. Pt transferred supine, independently, call light in reach and all needs met. bed alarm on. OT Skilled Nursing Goals Skilled Nursing Goals Time Frame: Jul 08, 2022 Acute change in mental status: 0 Inattention: 0 Disorganized thinkin Altered level of consciousness: 0 Eating (QC): 6 Oral Hygiene (QC): 6 Toileting Hygiene (QC): 6 Shower/Bathe Self (QC): 6 Upper Body Dressing (QC): 6 Lower Body Dressing (QC): 6 On/Off Footwear (QC): 6 Additional Goals: 1-Demonstrate ADL Tasks, 2-Verbalize Understanding, 3- ImproveStrength/Kain 1=Demonstrate adherence to instructed precautions during ADL tasks. 2=Patient will verbalize/demonstrate understanding of assistive devices/modifications for ADL. 3=Patient will improve strength/tolerance for activity to enable patient to perform ADL's. OT Education/Plan Problem List/Assessment Assessment: Decreased Activ Tolerance, Decreased UE Strength, Impaired Funct Balance, Impaired I ADL's Discharge Recommendations Plan/Recommendations: Continue POC Treatment Plan/Plan of Care Patient would benefit from OT for education, treatment and training to promote independence in ADL's, mobility, safety and/or upper extremity function for ADL's. Plan of Care: ADL Retraining, Functional Mobility, Group Exercise/Act as Ind, UE Funct Exercise/Act, Visual/Perceptual Retrain Treatment Duration: Jul 08, 2022 Frequency: At least 5 of 7 days/Wk (IRF) Estimated Hrs Per Day: 1.5 hours per day Agreement: Yes Rehab Potential: Good Time Start Time: 12:45 Stop Time: 13:00 DATE: Jun 23, 2022 Total Time Billed (hr/min): 15 Billed Treatment Time 1, WINSOME ADLER OT Jun 23, 2022 12:58
--- NOTE | 2022-06-23 14:18 | Physical Therapy Daily Note ---
PT Daily Note-Current Subjective Pt. agrees to Rx, she is anxious to finish Rx and visit with family that arrive during her Rx. Pain Location: No Pain Reported Section J - Health Conditions 1. Rarely or not at all 2. Occasionally 3. Frequently 4. Almost constantly 8. Unable to answer Pain Effect on Sleep: 1 Pain Interference with Therapy: 1 Pain Interference w/Day-to-Day: 1 Mental Status Patient Orientation: Normal For Age Transfers SCALE: Activities may be completed with or without assistive devices. 8-Kukwlzwsjy-wgbjvnf completes the activity by him/herself with no assistance from a helper. 5-Set-up or Clean-up Assistance-helper sets up or cleans up; patient completes activity. [place] assists only prior to or following the activity. 4-Supervision or Touching Assistance-helper provides verbal cues and/or touching/steadying and/or contact guard assistance as patient completes activity. Assistance may be provided throughout the activity or intermittently. 3-Partial/Moderate Assistance-helper does LESS THAN HALF the effort. [place] lifts, holds or supports trunk or limbs, but provides less than half the effort. 2-Substantial/Maximal Assistance-helper does MORE THAN HALF the effort. [place] lifts or holds trunk or limbs and provides more than half the effort. 7-Wvducutrr-cxovqg does ALL the effort. Patient does none of the effort to complete the activity. Or, the assistance of 2 or more helpers is required for the patient to complete the activity. If activity was not attempted, code reason: 7-Patient Refused. 9-Not Applicable-not attempted and the patient did not perform the activity before the current illness, exacerbation or injury. 10-Not Attempted due to Environmental Limitations-(lack of equipment, weather restraints, etc.). 88-Not Attempted due to Medical Conditions or Safety Concerns. all TRFs Mod I Gait Training Does the Patient Walk?: Yes Gait Assistive Device: None 550 ft, 150 ft no AD, no LOB, side and retro gait with cues for greater awareness Exercises NuStep Minutes: 12 NuStep Workload: 4 Treatments gait with balance challenges, Nustep , side step in kitchen area for focused work ie coffee making and drawer /utensil organization, no LOB Assessment Current Status: Good Progress PT Assisted Goals Gamemaster Goals PT Assisted Goals Time Frame: Jul 06, 2022 Roll Left & Right (QC): 6 Sit to Lying (QC): 6 Lying-Sitting on Side/Bed(QC): 6 Sit to Stand (QC): 6 Chair/Hex-tv-Mhywu Xfer(QC): 6 Toilet Transfer (QC): 6 Car Transfer (QC): 6 Does the Patient Walk: Yes Walk 10 feet (QC): 6 Walk 50ft with 2 Turns (QC): 6 Walk 150 ft (QC): 6 Walking 10ft on Uneven Surface: 6 1 Step (curb) (QC): 6 4 Steps (QC): 6 12 Steps (QC): 6 Picking up an Object (QC): 6 Wheel 50 feet with 2 turns (QC: 9 Wheel 150 feet: 9 PT Plan Treatment/Plan Treatment Plan: Continue Plan of Care Treatment Plan: Bed Mobility, Education, Functional Activity Kain, Functional Strength, Group Therapy, Gait, Safety, Therapeutic Exercise, Transfers Treatment Duration: Jul 06, 2022 Frequency: At least 5 of 7 days/Wk (IRF) Estimated Hrs Per Day: 1.5 hours per day Patient and/or Family Agrees t: Yes Safety Risks/Education Patient Education: Gait Training, Transfer Techniques, Safety Issues Teaching Recipient: Patient Teaching Methods: Demonstration, Discussion Response to Teaching: Verbalize Understanding, Return Demonstration, Reinforcement Needed Time Time In: 1345 Time Out: 1415 DATE: Jun 23, 2022 Total Billed Treatment Time: 30 Total Billed Treatment 1, GT17m,EX13m KAM SHER PTA Jun 23, 2022 14:18
[2022-06-23 19:55] VITALS: BP 181/85
--- NOTE | 2022-06-24 06:43 | PM&R Progress Note ---
Subjective HPI/CC On Admission Date Seen by Provider: Jun 24, 2022 Time Seen by Provider: 12:00 Subjective/Events-last exam 06/24/2022: Doing well Cognition has cleared DC tomorrow 06/23/2022: Much improved status No pain reported Improved cognition Reviewed labs Review of Systems General: Fatigue, Malaise Objective Exam Vital Signs Vital Signs Date Time Temp Pulse Resp B/P (MAP) Pulse Ox O2 Delivery O2 Flow Rate FiO2 06/24/22 09:00 Room Air 06/24/22 08:03 36.0 87 14 148/81 (103) 98 Capillary Refill : General Appearance: No Apparent Distress, WD/WN HEENT: PERRL/EOMI, TMs Normal, Normal ENT Inspection, Pharynx Normal Neck: Full Range of Motion, Normal Inspection, Non Tender, Supple, Carotid Bruit Respiratory: Chest Non Tender, Lungs Clear, Normal Breath Sounds, No Accessory Muscle Use, No Respiratory Distress Cardiovascular: Regular Rate, Rhythm, No Edema, No Gallop, No JVD, No Murmur, Normal Peripheral Pulses Gastrointestinal: Normal Bowel Sounds, No Organomegaly, No Pulsatile Mass, Non Tender, Soft Back: Normal Inspection, No CVA Tenderness, No Vertebral Tenderness Extremity: Normal Capillary Refill, Normal Inspection, Normal Range of Motion, Non Tender, No Calf Tenderness, No Pedal Edema Neurologic/Psychiatric: Alert, Oriented x3, Normal Mood/Affect, mental health case manager II-XII Norm as Tested, Motor Weakness (generalized), Other (poor recall) Skin: Normal Color, Warm/Dry Lymphatic: No Adenopathy Results/Procedures Lab Patient resulted labs reviewed. FIM Transfers Therapy Code Descriptions/Definitions Functional [place] Measure: 0=Not Assessed/NA 4=Minimal Assistance 1=Total Assistance 5=Supervision or Setup 2=Maximal Assistance 6=Modified [place] 3=Moderate Assistance 7=Complete IndependenceSCALE: Activities may be completed with or without assistive devices. 0-Hcdnuvrapi-baoyvtv completes the activity by him/herself with no assistance from a helper. 5-Set-up or Clean-up Assistance-helper sets up or cleans up; patient completes activity. [place] assists only prior to or following the activity. 4-Supervision or Touching Assistance-helper provides verbal cues and/or touching/steadying and/or contact guard assistance as patient completes activity. Assistance may be provided throughout the activity or intermittently. 3-Partial/Moderate Assistance-helper does LESS THAN HALF the effort. [place] lifts, holds or supports trunk or limbs, but provides less than half the effort. 2-Substantial/Maximal Assistance-helper does MORE THAN HALF the effort. [place] lifts or holds trunk or limbs and provides more than half the effort. 8-Orerlnzub-xwidad does ALL the effort. Patient does none of the effort to complete the activity. Or, the assistance of 2 or more helpers is required for the patient to complete the activity. If activity was not attempted, code reason: 7-Patient Refused. 9-Not Applicable-not attempted and the patient did not perform the activity before the current illness, exacerbation or injury. 10-Not Attempted due to Environmental Limitations-(lack of equipment, weather restraints, etc.). 88-Not Attempted due to Medical Conditions or Safety Concerns. Roll Left to Right (QC): 6 Sit to Lying (QC): 6 Sit to Stand (QC): 6 Chair/Cnl-jm-Svwct Xfer(QC): 6 Car Transfer (QC): 6 Gait Training Does the Patient Walk?: Yes Walk 10 feet (QC): 6 Walk 50 ft with 2 Turns(QC): 6 Walk 150 ft (QC): 6 Walking 10ft/uneven surface-QC: 6 Gait Persons Needed: 0 Gait Assistive Device: None Wheelchair Training Does the Pt Use a Wheelchair?: No Wheel 50 ft with 2 turns (QC): 9 Wheel 150 ft (QC): 9 Stair Training #of Steps: 12 1 Step (curb) (QC): 4 4 Steps (QC): 4 12 Steps (QC): 4 Balance Picking up an Object (QC): 6 (no billet bed operator used) ADL-Treatment Eating (QC): 6 Oral Hygiene (QC): 6 Shower/Bathe Self (QC): 5 (set up to cover IV. Pt completed shower 100% standing.) Upper Body Dressing (QC): 4 (SBA, VCs for orientation of bra and shirt due to visual deficit.) Lower Body Dressing (QC): 4 (VC to sit down while threading feet for safety.) On/Off Footwear (QC): 6 Toileting Hygiene (QC): 6 Toilet Transfer (QC): 6 Assessment/Plan Assessment and Plan Assess & Plan/Chief Complaint Assessment: CVA Poor recall residual Meth use HTN OOC HLP Plan: ARU protocol Monitor closely BP management 06/23/2022: Continue aggressive therapy 06/24/2022: DC tomorrow (1) CVA (cerebral vascular accident) Status: Acute (2) Disoriented Status: Acute (3) Methamphetamine abuse Status: Acute (4) Left-sided weakness Status: Acute (5) Malignant hypertension Status: Acute ROSIE MACDONALD DO Jun 24, 2022 06:43
[2022-06-24 08:00] VITALS: BP 148/81
[2022-06-24 08:03] VITALS: BP 148/81
[2022-06-24] MEDS: SENNA W/DOCUSATE (SENOKOT S) TABLET PO SCH ×2 (08:27→21:00)
[2022-06-24] MEDS: hydrALAZINE (APRESOLINE) 25 MG TAB PO SCH ×3 (08:27→21:31)
[2022-06-24] MEDS: LOSARTAN 100 MG (COZAAR) TABLET PO SCH (08:27)
[2022-06-24] MEDS: ASPIRIN 81 MG CHEW (CHILDREN'S ASA) PO SCH (08:27)
[2022-06-24] MEDS: amLODIPine 5 MG (NORVASC) TAB PO SCH (08:27)
[2022-06-24] MEDS: NICOTINE 21 MG (NICODERM) PATCH TD SCH (08:27)
[2022-06-24] MEDS: polyethylene glycoL POWDER 17 GM (MIRALAX) PACK PO SCH ×2 (08:28→21:00)
[2022-06-24] MEDS: NICOTINE PATCH REMOVAL TP SCH (08:28)
[2022-06-24] MEDS: DOCUSATE SODIUM 100 MG (COLACE) CAP PO SCH ×2 (08:28→21:00)
[2022-06-24] MEDS: SENNOSIDES 8.6 MG (SENOKOT) TAB PO SCH ×2 (08:28→21:00)
--- NOTE | 2022-06-24 09:50 | Physical Therapy Daily Note ---
PT Daily Note-Current Subjective Pt. agrees to Rx. Denies any pain, states her only issue that she notices that " my brain isnt right yet" Pt. struggling with use of her cell phone for texting when this BULK PLANT SUPERVISOR arrived. Pt. states she has forgotten how to make the letters capital letters. Pt. was instructed in this and reviewed some other cell phone texting . Pt. also shares that she is really wanting a cigarette and cant begin to work without a nicotine patch. Nurse was contacted and this was taken care of. Pain Section J - Health Conditions 1. Rarely or not at all 2. Occasionally 3. Frequently 4. Almost constantly 8. Unable to answer Pain Effect on Sleep: 1 Pain Interference with Therapy: 1 Pain Interference w/Day-to-Day: 1 Mental Status Patient Orientation: Normal For Age Transfers SCALE: Activities may be completed with or without assistive devices. 2-Umtxyokidk-fqxdnep completes the activity by him/herself with no assistance from a helper. 5-Set-up or Clean-up Assistance-helper sets up or cleans up; patient completes activity. [place] assists only prior to or following the activity. 4-Supervision or Touching Assistance-helper provides verbal cues and/or touching/steadying and/or contact guard assistance as patient completes activity. Assistance may be provided throughout the activity or intermittently. 3-Partial/Moderate Assistance-helper does LESS THAN HALF the effort. [place] lifts, holds or supports trunk or limbs, but provides less than half the effort. 2-Substantial/Maximal Assistance-helper does MORE THAN HALF the effort. [place] lifts or holds trunk or limbs and provides more than half the effort. 9-Uggqihhxi-daxyom does ALL the effort. Patient does none of the effort to complete the activity. Or, the assistance of 2 or more helpers is required for the patient to complete the activity. If activity was not attempted, code reason: 7-Patient Refused. 9-Not Applicable-not attempted and the patient did not perform the activity before the current illness, exacerbation or injury. 10-Not Attempted due to Environmental Limitations-(lack of equipment, weather restraints, etc.). 88-Not Attempted due to Medical Conditions or Safety Concerns. Roll Left & Right (QC): 6 Sit to Lying (QC): 6 Lying to Sitting/Side of Bed(Q: 6 Sit to Stand (QC): 6 Chair/Ulu-pr-Zfllr Xfer(QC): 6 Toilet Transfer (QC): 6 Car Transfer (QC): 6 pt. able to enter exit car safely one foot in , one foot out etc Gait Training Does the Patient Walk?: Yes Walk 10 feet (QC): 6 Walk 50 ft with 2 Turns(QC): 6 Walk 150 ft (QC): 6 Walking 10ft/uneven surface-QC: 6 Gait Persons Needed: 0 Gait Assistive Device: None no LOB 400 ft plus, turns, backing etc Stair Training Stair Training: Handrails/: 1 handrail #of Steps: 12 1 Step (curb) (QC): 6 4 Steps (QC): 6 12 Steps (QC): 6 Stairs: Pattern: Reciprocal Balance Picking up an Object (QC): 6 Exercises Supine Ex: Bridging, Ankle pumps, Pelvic tilt, Quad Set, Rolling, Glut sets, Lower trunk rotation, Heel Slides, Short Arc Quads, Scooting, Straight leg raise, Hip abd/add Supine Reps: 15 Treatments QC, gait, ex, TRFs, cognitive task training Assessment Current Status: Good Progress pts lingering challenge is cognitive, recall as well as managing instruction for some exercises without demonstration , description only is a challenge PT Division Director Goals Division Director Goals PT Division Director Goals Time Frame: Jul 06, 2022 Roll Left & Right (QC): 6 Sit to Lying (QC): 6 Lying-Sitting on Side/Bed(QC): 6 Sit to Stand (QC): 6 Chair/Ecx-zx-Zkejj Xfer(QC): 6 Toilet Transfer (QC): 6 Car Transfer (QC): 6 Does the Patient Walk: Yes Walk 10 feet (QC): 6 Walk 50ft with 2 Turns (QC): 6 Walk 150 ft (QC): 6 Walking 10ft on Uneven Surface: 6 1 Step (curb) (QC): 6 4 Steps (QC): 6 12 Steps (QC): 6 Picking up an Object (QC): 6 Wheel 50 feet with 2 turns (QC: 9 Wheel 150 feet: 9 PT Plan Treatment/Plan Treatment Plan: Continue Plan of Care Treatment Plan: Bed Mobility, Education, Functional Activity Kain, Functional Strength, Group Therapy, Gait, Safety, Therapeutic Exercise, Transfers Treatment Duration: Jul 06, 2022 Frequency: At least 5 of 7 days/Wk (IRF) Estimated Hrs Per Day: 1.5 hours per day Patient and/or Family Agrees t: Yes Safety Risks/Education Patient Education: Gait Training, Transfer Techniques, Steps, Correct Positioning, Disease Process, Safety Issues Teaching Recipient: Patient Teaching Methods: Demonstration, Discussion Response to Teaching: Verbalize Understanding, Return Demonstration, Reinforcement Needed Time Time In: 900 Time Out: 1000 DATE: Jun 24, 2022 Total Billed Treatment Time: 60 Total Billed Treatment 1,EX25m,FA20m,GT15m KAM SHER BULK PLANT SUPERVISOR Jun 24, 2022 09:50
[2022-06-24] MEDS: ENOXAPARIN 40 MG/0.4 ML (LOVENOX) SYR SC SCH (11:51)
--- NOTE | 2022-06-24 11:53 | Occupational Ther Daily Note ---
OT Current Status-Daily Note Subjective Pt alert, lying in bed. Pt agrees to therapy. No c/o pain. Mental Status/Objective Patient Orientation: Person, Place, Time, Situation Attachments: IV ADL-Treatment Pt independent with shower using grabbars and hand held shower, standing 100% of the time. Independent with LBD, UBD, footwear, oral care and toileting. Therapy Code Descriptions/Definitions Functional [place] Measure: 0=Not Assessed/NA 4=Minimal Assistance 1=Total Assistance 5=Supervision or Setup 2=Maximal Assistance 6=Modified [place] 3=Moderate Assistance 7=Complete IndependenceSCALE: Activities may be completed with or without assistive devices. 0-Koraiyqnba-iwxyrbv completes the activity by him/herself with no assistance from a helper. 5-Set-up or Clean-up Assistance-helper sets up or cleans up; patient completes activity. [place] assists only prior to or following the activity. 4-Supervision or Touching Assistance-helper provides verbal cues and/or touching/steadying and/or contact guard assistance as patient completes activity . Assistance may be provided throughout the activity or intermittently. 3-Partial/Moderate Assistance-helper does LESS THAN HALF the effort. [place] lifts, holds or supports trunk or limbs, but provides less than half the effort. 2-Substantial/Maximal Assistance-helper does MORE THAN HALF the effort. [place] lifts or holds trunk or limbs and provides more than half the effort. 9-Qbnyzrjek-dmsika does ALL the effort. Patient does none of the effort to complete the activity. Or, the assistance of 2 or more helpers is required for the patient to complete the activity. If activity was not attempted, code reason: 7-Patient Refused. 9-Not Applicable-not attempted and the patient did not perform the activity before the current illness, exacerbation or injury. 10-Not Attempted due to Environmental Limitations-(lack of equipment, weather restraints, etc.). 88-Not Attempted due to Medical Conditions or Safety Concerns. Eating (QC): 6 (Pt has demonstrated ability to complete independently.) Oral Hygiene (QC): 6 Shower/Bathe Self (QC): 6 Upper Body Dressing (QC): 6 Lower Body Dressing (QC): 6 On/Off Footwear: 6 Toileting Hygiene (QC): 6 Toilet Transfer (QC): 6 Other Treatment Pt able to complete 2 step direction with minimal cues with ambulation component. 3 step direction task with mod cues. Pt only had 1 LOB with self corrected. Pt agrees to therapy. After session, pt lying in bed. All needs met in room. OT Foundry Finisher Goals Foundry Finisher Goals Time Frame: Jul 08, 2022 Acute change in mental status: 0 Inattention: 0 Disorganized thinkin Altered level of consciousness: 0 Eating (QC): 6 Oral Hygiene (QC): 6 Toileting Hygiene (QC): 6 Shower/Bathe Self (QC): 6 Upper Body Dressing (QC): 6 Lower Body Dressing (QC): 6 On/Off Footwear (QC): 6 Additional Goals: 1-Demonstrate ADL Tasks, 2-Verbalize Understanding, 3- ImproveStrength/Kain 1=Demonstrate adherence to instructed precautions during ADL tasks. 2=Patient will verbalize/demonstrate understanding of assistive devices/modifications for ADL. 3=Patient will improve strength/tolerance for activity to enable patient to perform ADL's. OT Education/Plan Problem List/Assessment Assessment: Decreased Activ Tolerance Discharge Recommendations Plan/Recommendations: Continue POC Treatment Plan/Plan of Care Patient would benefit from OT for education, treatment and training to promote independence in ADL's, mobility, safety and/or upper extremity function for ADL's. Plan of Care: ADL Retraining, Functional Mobility, Group Exercise/Act as Ind, UE Funct Exercise/Act, Visual/Perceptual Retrain Treatment Duration: Jul 08, 2022 Frequency: At least 5 of 7 days/Wk (IRF) Estimated Hrs Per Day: 1.5 hours per day Agreement: Yes Rehab Potential: Good Time Start Time: 10:00 Stop Time: 11:00 DATE: Jun 24, 2022 Total Time Billed (hr/min): 60 Billed Treatment Time 1 visit-ADL 2 (30 min) FA 2 (30 min) HAILY LORD Jun 24, 2022 11:53
--- NOTE | 2022-06-24 12:43 | Occupational Ther Daily Note ---
OT Current Status-Daily Note Subjective Pt alert, sitting on EOB. Pt agrees to therapy. No c/o pain. Mental Status/Objective Patient Orientation: Person, Place, Time, Situation Attachments: IV ADL-Treatment Independent with eating and opening containers. Pt able to retrieve items on variety of heights from refrigerator without LOB, independently. After session, pt sitting EOB with call light/phone in reach. Visitor and nrsg in room. All needs met. Therapy Code Descriptions/Definitions Functional [place] Measure: 0=Not Assessed/NA 4=Minimal Assistance 1=Total Assistance 5=Supervision or Setup 2=Maximal Assistance 6=Modified [place] 3=Moderate Assistance 7=Complete IndependenceSCALE: Activities may be completed with or without assistive devices. 9-Vkwpwnscev-qpzjvnz completes the activity by him/herself with no assistance from a helper. 5-Set-up or Clean-up Assistance-helper sets up or cleans up; patient completes activity. [place] assists only prior to or following the activity. 4-Supervision or Touching Assistance-helper provides verbal cues and/or touching/steadying and/or contact guard assistance as patient completes activity. Assistance may be provided throughout the activity or intermittently. 3-Partial/Moderate Assistance-helper does LESS THAN HALF the effort. [place] lift s, holds or supports trunk or limbs, but provides less than half the effort. 2-Substantial/Maximal Assistance-helper does MORE THAN HALF the effort. [place] lifts or holds trunk or limbs and provides more than half the effort. 2-Aavvshqzf-ihcqhd does ALL the effort. Patient does none of the effort to complete the activity. Or, the assistance of 2 or more helpers is required for the patient to complete the activity. If activity was not attempted, code reason: 7-Patient Refused. 9-Not Applicable-not attempted and the patient did not perform the activity before the current illness, exacerbation or injury. 10-Not Attempted due to Environmental Limitations-(lack of equipment, weather restraints, etc.). 88-Not Attempted due to Medical Conditions or Safety Concerns. Eating (QC): 6 Other Treatment Pt able to completed 3 step direction with no verbal cues or LOB. Pt able to place items in designated areas at different heights in different areas of the room. BIMS CAM BIMS Expression of Ideas and Wants: Without Difficulty Understanding Verbal Content: Understands Brief Interview/Mental Status: Yes IRF MARCELLO BIMS: IRF MAR[place]O BIMS Response (Comments) Value Repitition of Three Words Three 3 Recalls Socks Yes, No Cue Required 2 Recalls Blue Yes, No Cue Required 2 Recalls Bed Yes, No Cue Required 2 Year Correct 3 Month Accurate Within 5 Days 2 Day Correct 1 Total 15 Patient Normally Able to Recal: Current Session, Location of own room, Staff Names and faces, That he/she in a hsp Should Staff Asses. Mental St.: No CAM Mental Status Change/Baseline: 0 Inattention: 0 Disorganized thinkin Altered level of consciousness: 0 OT Java Manager Goals Java Manager Goals Time Frame: Jul 08, 2022 Acute change in mental status: 0 Inattention: 0 Disorganized thinkin Altered level of consciousness: 0 Eating (QC): 6 (met) Oral Hygiene (QC): 6 (met) Toileting Hygiene (QC): 6 (met) Shower/Bathe Self (QC): 6 (met) Upper Body Dressing (QC): 6 (met) Lower Body Dressing (QC): 6 (met) On/Off Footwear (QC): 6 Additional Goals: 1-Demonstrate ADL Tasks, 2-Verbalize Understanding, 3- ImproveStrength/Kain 1=Demonstrate adherence to instructed precautions during ADL tasks. 2=Patient will verbalize/demonstrate understanding of assistive devices/modifications for ADL. 3=Patient will improve strength/tolerance for activity to enable patient to perform ADL's. OT Education/Plan Problem List/Assessment Assessment: Decreased Activ Tolerance, Visual-Perceptual Deficit Discharge Recommendations Plan/Recommendations: Continue POC Treatment Plan/Plan of Care Patient would benefit from OT for education, treatment and training to promote independence in ADL's, mobility, safety and/or upper extremity function for ADL's. Plan of Care: ADL Retraining, Functional Mobility, Group Exercise/Act as Ind, UE Funct Exercise/Act, Visual/Perceptual Retrain Treatment Duration: Jul 08, 2022 Frequency: At least 5 of 7 days/Wk (IRF) Estimated Hrs Per Day: 1.5 hours per day Agreement: Yes Rehab Potential: Good Time Start Time: 12:20 Stop Time: 12:50 DATE: Jun 24, 2022 Total Time Billed (hr/min): 30 Billed Treatment Time 1 visit-ADL 1 (15 min) FA 1 (15 min) HAILY LORD Jun 24, 2022 12:43
[2022-06-24] MEDS ORDERED: ENOXAPARIN 40 MG/0.4 ML (LOVENOX) SYR SC SCH (13:00)
[2022-06-24] MEDS ORDERED: ASPI81TA64 PO (13:19)
[2022-06-24] MEDS ORDERED: CLN.1T PO (13:19)
[2022-06-24] MEDS ORDERED: AMLO-250 PO (13:19)
[2022-06-24] MEDS ORDERED: ATOR80TA76 PO (13:19)
[2022-06-24] MEDS ORDERED: HYDR-3923 PO (13:19)
--- NOTE | 2022-06-24 13:55 | Physical Therapy Daily Note ---
PT Daily Note-Current Subjective Pt. in bed states she is sleepy and contemplating her DC tomorrow and all the things she may encounter that shamar give her a challenge cognitively. The subject of driving was mentioned and pt. states she has been letting her sister borrow her car during this admission and she will cont to let her do the driving and then have her with her when she feels she is cognitively more clear. Pt. agrees to demonstrate exercises she plans to cont to do at home Pain Location: No Pain Reported Section J - Health Conditions 1. Rarely or not at all 2. Occasionally 3. Frequently 4. Almost constantly 8. Unable to answer Pain Effect on Sleep: 1 Pain Interference with Therapy: 1 Pain Interference w/Day-to-Day: 1 Mental Status Patient Orientation: Normal For Age Transfers SCALE: Activities may be completed with or without assistive devices. 1-Cohpitlqpv-cbmvlbr completes the activity by him/herself with no assistance from a helper. 5-Set-up or Clean-up Assistance-helper sets up or cleans up; patient completes activity. [place] assists only prior to or following the activity. 4-Supervision or Touching Assistance-helper provides verbal cues and/or touching/steadying and/or contact guard assistance as patient completes activity. Assistance may be provided throughout the activity or intermittently. 3-Partial/Moderate Assistance-helper does LESS THAN HALF the effort. [place] lifts, holds or supports trunk or limbs, but provides less than half the effort. 2-Substantial/Maximal Assistance-helper does MORE THAN HALF the effort. [place] l ifts or holds trunk or limbs and provides more than half the effort. 2-Ulcdgzqrp-uldnoi does ALL the effort. Patient does none of the effort to complete the activity. Or, the assistance of 2 or more helpers is required for the patient to complete the activity. If activity was not attempted, code reason: 7-Patient Refused. 9-Not Applicable-not attempted and the patient did not perform the activity before the current illness, exacerbation or injury. 10-Not Attempted due to Environmental Limitations-(lack of equipment, weather restraints, etc.). 88-Not Attempted due to Medical Conditions or Safety Concerns. all TRFs indep Gait Training Gait Assistive Device: None gait about her room and into [place] SBA to Mod I Exercises Supine Ex: Bridging, Ankle pumps, Pelvic tilt, Lower trunk rotation, Straight leg raise, Hip abd/add (sidelying) Supine Reps: 20 Treatments TRFs, short gait in tight spaces with multiple turns, HEP Assessment Current Status: Good Progress PT Residential Goals Firewood Cutter Goals PT Firewood Cutter Goals Time Frame: Jul 06, 2022 Roll Left & Right (QC): 6 Sit to Lying (QC): 6 Lying-Sitting on Side/Bed(QC): 6 Sit to Stand (QC): 6 Chair/Bsb-xg-Wbudx Xfer(QC): 6 Toilet Transfer (QC): 6 Car Transfer (QC): 6 Does the Patient Walk: Yes Walk 10 feet (QC): 6 Walk 50ft with 2 Turns (QC): 6 Walk 150 ft (QC): 6 Walking 10ft on Uneven Surface: 6 1 Step (curb) (QC): 6 4 Steps (QC): 6 12 Steps (QC): 6 Picking up an Object (QC): 6 Wheel 50 feet with 2 turns (QC: 9 Wheel 150 feet: 9 PT Plan Treatment/Plan Treatment Plan: Continue Plan of Care Treatment Plan: Bed Mobility, Education, Functional Activity Kain, Functional Strength, Group Therapy, Gait, Safety, Therapeutic Exercise, Transfers Treatment Duration: Jul 06, 2022 Frequency: At least 5 of 7 days/Wk (IRF) Estimated Hrs Per Day: 1.5 hours per day Patient and/or Family Agrees t: Yes Safety Risks/Education Patient Education: Correct Positioning Teaching Recipient: Patient Time Time In: 1320 Time Out: 1350 DATE: Jun 24, 2022 Total Billed Treatment Time: 30 Total Billed Treatment 1,EX30m KAM SHER BOILER COVERER HELPER Jun 24, 2022 13:55
[2022-06-24 19:39] VITALS: BP 143/78
--- NOTE | 2022-06-25 05:42 | Discharge Summary ---
Diagnosis/Chief Complaint Date of Admission Jun 22, 2022 at 10:45 Date of Discharge Discharge Date: Jun 25, 2022 Discharge Diagnosis CVA Cognitive deficits now cleared Meth use HTNOOC Discharge Summary Discharge Physical Examination Allergies: Coded Allergies: No Known Drug Allergies (Unverified , 06/18/22) Vitals & I&Os Vital Signs Date Time Temp Pulse Resp B/P (MAP) Pulse Ox O2 Delivery O2 Flow Rate FiO2 06/25/22 09:00 36.2 92 20 125/79 95 Room Air General Appearance: Alert, Oriented X3, Cooperative Respiratory: Clear to Auscultation Cardiovascular: Regular Rate Psych/Mental Status: Mental Status NL Hospital Course Was the Problem List Reviewed?: Yes Uncomplicated ARU course after she was admitted following CVA with cognitive deficits which cleared quickly after admit. BP was better controlled and she was deemed stable for DC. Labs (last 24 hrs) Laboratory Tests 06/23/22 05:12: White Blood Count 4.3, Red Blood Count 5.41H, Hemoglobin 16.7H, Hematocrit 49, Mean Corpuscular Volume 90, Mean Corpuscular Hemoglobin 31, Mean Corpuscular Hemoglobin Concent 34, Red Cell Distribution Width 13.5, Platelet Count 201, Mean Platelet Volume 9.5, Immature Granulocyte % (Auto) 0, Neutrophils (%) (Auto) 43, Lymphocytes (%) (Auto) 38, Monocytes (%) (Auto) 12, Eosinophils (%) (Auto) 6, Basophils (%) (Auto) 1, Neutrophils # (Auto) 1.8, Lymphocytes # (Auto) 1.6, Monocytes # (Auto) 0.5, Eosinophils # (Auto) 0.3, Basophils # (Auto) 0.0, Immature Granulocyte # (Auto) 0.0, Sodium Level 138, Potassium Level 4.1, Chloride Level 105, Carbon Dioxide Level 21, Anion Gap 12, Blood Urea Nitrogen 17, Creatinine 0.81, Estimat Glomerular Filtration Rate 83, BUN/Creatinine Ratio 21, Glucose Level 100, Calcium Level 9.7, Corrected Calcium 9.8, Total Bilirubin 0.7, Aspartate Amino Transf (AST/SGOT) 18, Alanine Aminotransferase (ALT/SGPT) 20, Alkaline Phosphatase 83, Total Protein 7.4, Albumin 3.9 Pending Labs Laboratory Tests 06/23/22 05:12: White Blood Count 4.3, Red Blood Count 5.41, Hemoglobin 16.7, Hematocrit 49, Mean Corpuscular Volume 90, Mean Corpuscular Hemoglobin 31, Mean Corpuscular Hemoglobin Concent 34, Red Cell Distribution Width 13.5, Platelet Count 201, Mean Platelet Volume 9.5, Immature Granulocyte % (Auto) 0, Neutrophils (%) (Auto) 43, Lymphocytes (%) (Auto) 38, Monocytes (%) (Auto) 12, Eosinophils (%) (Auto) 6, Basophils (%) (Auto) 1, Neutrophils # (Auto) 1.8, Lymphocytes # (Auto) 1.6, Monocytes # (Auto) 0.5, Eosinophils # (Auto) 0.3, Basophils # (Auto) 0.0, Immature Granulocyte # (Auto) 0.0, Sodium Level 138, Potassium Level 4.1, Chloride Level 105, Carbon Dioxide Level 21, Anion Gap 12, Blood Urea Nitrogen 17, Creatinine 0.81, Estimat Glomerular Filtration Rate 83, BUN/Creatinine Ratio 21, Glucose Level 100, Calcium Level 9.7, Corrected Calcium 9.8, Total Bilirubin 0.7, Aspartate Amino Transf (AST/SGOT) 18, Alanine Aminotransferase (ALT/SGPT) 20, Alkaline Phosphatase 83, Total Protein 7.4, Albumin 3.9 Discharge Home Medications: Active Scripts Active Amlodipine Besylate 5 Mg Tablet 10 Mg PO DAILY Hydralazine HCl 25 Mg Tablet 50 Mg PO TID Clonidine HCl 0.1 Mg Tablet 0.1 Mg PO Q4HR PRN Children's Aspirin (Aspirin) 81 Mg Tab.chew 81 Mg PO DAILY Atorvastatin Calcium 80 Mg Tablet 80 Mg PO HS Instructions to patient/family Please see electronic discharge instructions given to patient. Diagnosis/Problems Diagnosis/Problems (1) CVA (cerebral vascular accident) Status: Acute (2) Disoriented Status: Acute (3) Methamphetamine abuse Status: Acute (4) Left-sided weakness Status: Acute (5) Malignant hypertension Status: Acute ROSIE MACDONALD DO Jun 25, 2022 05:42
[2022-06-25 07:30] VITALS: BP 125/79
[2022-06-25 09:00] VITALS: BP 125/79
[2022-06-25] MEDS: LOSARTAN 100 MG (COZAAR) TABLET PO SCH (09:15)
[2022-06-25] MEDS: polyethylene glycoL POWDER 17 GM (MIRALAX) PACK PO SCH (09:16)
[2022-06-25] MEDS: amLODIPine 5 MG (NORVASC) TAB PO SCH (09:16)
[2022-06-25] MEDS: SENNOSIDES 8.6 MG (SENOKOT) TAB PO SCH (09:16)
[2022-06-25] MEDS: SENNA W/DOCUSATE (SENOKOT S) TABLET PO SCH (09:17)
[2022-06-25] MEDS: NICOTINE 21 MG (NICODERM) PATCH TD SCH (09:17)
[2022-06-25] MEDS: hydrALAZINE (APRESOLINE) 25 MG TAB PO SCH ×2 (09:17→12:33)
[2022-06-25] MEDS: ASPIRIN 81 MG CHEW (CHILDREN'S ASA) PO SCH (09:17)
[2022-06-25] MEDS: DOCUSATE SODIUM 100 MG (COLACE) CAP PO SCH (09:17)
[2022-06-25] MEDS: NICOTINE PATCH REMOVAL TP SCH (09:18)
[2022-06-25] MEDS: ENOXAPARIN 40 MG/0.4 ML (LOVENOX) SYR SC SCH (11:42)
--- NOTE | 2022-06-27 09:44 | Therapy Team Discharge Summary ---
Therapy Discharge Summary Discharge Recommendations Date of Discharge Jun 25, 2022 at 14:30 Physical Therapy Roll Left to Right (QC): 6 Sit to Lying (QC): 6 Lying to Sitting/Side of Bed(Q: 6 Sit to Stand (QC): 6 Chair/Sot-he-Dvogp Xfer(QC): 6 Toilet Transfer (QC): 5 Car Transfer (QC): 6 Does the Patient Walk: Yes Mode of Locomotion: Walk Anticipated Mode of Locomotion: Walk Walk 10 feet (QC): 6 Walk 50 ft with 2 Turns(QC): 6 Walk 150 ft (QC): 6 Walking 10ft on uneven surface: 6 Distance: 300'x2, 150' Gait Assistive Device: None Does the Pt Use a Wheelchair: No Wheel 50 ft with 2 turns (QC): 9 Wheel 150 ft (QC): 9 #of Steps: 12 1 Step (curb) (QC): 6 4 Steps (QC): 6 12 Steps (QC): 6 Balance Sitting Static: Normal Balance Sitting Dynamic: Normal Balance-Standing Static: Normal Picking up an Object (QC): 6 Occupational Therapy Pt admitted to [facility] s/p CVA. At [facility], pt was independent with ADLs and functional mobility. Upon initial evaluation, pt was independent with eating, oral care, footwear, and toileting, required set up with showering, and SBA with UE/LE dressing. OT tx focused on increasing BUE strength and activity tolerance, education on activity modifications due to blurry vision, and increasing safety and independence with ADLs and functional mobility. Pt made good progress towards goals, attaining IND level with all ADLs. Pt discharged home with family support, d/c from OT. Decreased Activ Tolerance, Visual-Perceptual Deficit Eating (QC): 6 Oral Hygiene (QC): 6 Shower/Bathe Self (QC): 6 Upper Body Dressing (QC): 6 Lower Body Dressing (QC): 6 On/Off Footwear (QC): 6 Toileting Hygiene (QC): 6 PT Care Home Goals Supervisory Air Intercept Controller Goals PT Care Home Goals Time Frame: Jul 06, 2022 Roll Left to Right (QC): 6 Sit to Lying (QC): 6 Lying-Sitting on Side/Bed(QC): 6 Sit to Stand (QC): 6 Chair/Mkf-mm-Wkjny Xfer(QC): 6 Toilet/Commode Transfer (QC): 6 Car Transfer (QC): 6 Does the Patient Walk: Yes Walk 10 feet (QC): 6 Walk 10ft-Uneven Surface(QC): 6 Walk 50ft with 2 Turns (QC): 6 Walk 150 ft (QC): 6 Wheel 50 feet with 2 turns (QC: 9 Wheel 150 feet: 9 1 Step (curb) (QC): 6 4 Steps (QC): 6 12 Steps (QC): 6 Picking up an Object (QC): 6 OT Care Home Goals Care Home Goals Time Frame: Jul 08, 2022 Acute change in mental status: 0 Inattention: 0 Disorganized thinkin Altered level of consciousness: 0 Eating (QC): 6 (met) Oral Hygiene (QC): 6 (met) Toileting Hygiene (QC): 6 (met) Shower/Bathe Self (QC): 6 (met) Upper Body Dressing (QC): 6 (met) Lower Body Dressing (QC): 6 (met) On/Off Footwear (QC): 6 Additional Goals: 1-Demonstrate ADL Tasks, 2-Verbalize Understanding, 3- ImproveStrength/Kain 1=Demonstrate adherence to instructed precautions during ADL tasks. 2=Patient will verbalize/demonstrate understanding of assistive devices/modifications for ADL. 3=Patient will improve strength/tolerance for activity to enable patient to perform ADL's. WINSOME OROZCO OT Jun 27, 2022 09:44
--- NOTE | 2022-06-28 09:23 | Therapy Team Discharge Summary ---
Therapy Discharge Summary Discharge Recommendations Date of Discharge Jun 25, 2022 at 14:30 Physical Therapy Patient received PT services on ARU for CVA beginning 06/22/22. At D/C patient was (I) with all bed mobiltiy and transfers without a device. She was able to enter/exit a car safely. She was able to walk 400'+ including turns and retro walking (I) without a device. She was able to ascend/descend 12 steps (I) with 1 handrail and pick an object up off the floor (I). No mobility concerns re. return home. Roll Left to Right (QC): 6 Sit to Lying (QC): 6 Lying to Sitting/Side of Bed(Q: 6 Sit to Stand (QC): 6 Chair/Iwa-yr-Iqvpz Xfer(QC): 6 Toilet Transfer (QC): 5 Car Transfer (QC): 6 Does the Patient Walk: Yes Mode of Locomotion: Walk Anticipated Mode of Locomotion: Walk Walk 10 feet (QC): 6 Walk 50 ft with 2 Turns(QC): 6 Walk 150 ft (QC): 6 Walking 10ft on uneven surface: 6 Distance: 300'x2, 150' Gait Assistive Device: None Does the Pt Use a Wheelchair: No Wheel 50 ft with 2 turns (QC): 9 Wheel 150 ft (QC): 9 #of Steps: 12 1 Step (curb) (QC): 6 4 Steps (QC): 6 12 Steps (QC): 6 Balance Sitting Static: Normal Balance Sitting Dynamic: Normal Balance-Standing Static: Normal Picking up an Object (QC): 6 Occupational Therapy Decreased Activ Tolerance, Visual-Perceptual Deficit Eating (QC): 6 Oral Hygiene (QC): 6 Shower/Bathe Self (QC): 6 Upper Body Dressing (QC): 6 Lower Body Dressing (QC): 6 On/Off Footwear (QC): 6 Toileting Hygiene (QC): 6 PT Auto Claims Adjuster Goals Auto Claims Adjuster Goals PT Auto Claims Adjuster Goals Time Frame: Jul 06, 2022 Roll Left to Right (QC): 6 Sit to Lying (QC): 6 Lying-Sitting on Side/Bed(QC): 6 Sit to Stand (QC): 6 Chair/Qxq-km-Xahou Xfer(QC): 6 Toilet/Commode Transfer (QC): 6 Car Transfer (QC): 6 Does the Patient Walk: Yes Walk 10 feet (QC): 6 Walk 10ft-Uneven Surface(QC): 6 Walk 50ft with 2 Turns (QC): 6 Walk 150 ft (QC): 6 Wheel 50 feet with 2 turns (QC: 9 Wheel 150 feet: 9 1 Step (curb) (QC): 6 4 Steps (QC): 6 12 Steps (QC): 6 Picking up an Object (QC): 6 OT Skilled Nursing Goals Skilled Nursing Goals Time Frame: Jul 08, 2022 Acute change in mental status: 0 Inattention: 0 Disorganized thinkin Altered level of consciousness: 0 Eating (QC): 6 (met) Oral Hygiene (QC): 6 (met) Toileting Hygiene (QC): 6 (met) Shower/Bathe Self (QC): 6 (met) Upper Body Dressing (QC): 6 (met) Lower Body Dressing (QC): 6 (met) On/Off Footwear (QC): 6 Additional Goals: 1-Demonstrate ADL Tasks, 2-Verbalize Understanding, 3- ImproveStrength/Kain 1=Demonstrate adherence to instructed precautions during ADL tasks. 2=Patient will verbalize/demonstrate understanding of assistive devices/modifications for ADL. 3=Patient will improve strength/tolerance for activity to enable patient to perform ADL's. Ana Brownlee PT Jun 28, 2022 09:23
== END 2022-06-25 14:30 | disposition home or self-care (01) | DRG 57 ==
PROVIDERS: ADMIT Internal Medicine; ATTEND Internal Medicine
DX: I69.354 Hemiplegia and hemiparesis following cerebral infarction affecting left non-dominant side (principal); I69.328 Other speech and language deficits following cerebral infarction; R47.81 Slurred speech; R41.0 Disorientation, unspecified; R53.81 Other malaise; R53.1 Weakness; I10 Essential (primary) hypertension; F15.10 Other stimulant abuse, uncomplicated; F17.210 Nicotine dependence, cigarettes, uncomplicated; F41.9 Anxiety disorder, unspecified; F32.A Depression, unspecified; E78.5 Hyperlipidemia, unspecified; Z79.82 Long term (current) use of aspirin; Z79.899 Other long term (current) drug therapy; Z28.310 Unvaccinated for COVID-19
CPT/HCPCS: 36415; 80053; 85025